=== PATIENT | female | born 2005 | race Caucasian/White ===

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

== ENCOUNTER 2024-01-16 13:45 | Outpatient (RCR) | payer BC, SELFPAY | END 2024-05-15 23:59 | disposition home or self-care (01) | PROVIDERS: PCP Family Medicine; Visit Provider Family Medicine | DX: R51.9 Headache, unspecified (principal); M62.838 Other muscle spasm; Z51.89 Encounter for other specified aftercare | CPT/HCPCS: 97110; 97140; 97162; 97530 ==

== ENCOUNTER 2024-02-19 13:47 | Outpatient (CLI) | payer BC, SELFPAY ==
--- NOTE | 2024-02-19 14:00 | US_ITS ---
Patient: KRZYSZTOF PURCELL Facility:?[facility] Patient ID:?[id number] Site Patient ID:?[id number]. Site :?[id number] Study:?US-Pelvis TRANSVAGINAL-02/19/2024 2:35:50 PM Ordering Physician:?STELLA CHOUDHARY Final Report: INDICATION: Displacement of IUD. TECHNIQUE: Ultrasound pelvis transvaginal COMPARISON: None. FINDINGS: Uterus: 6.4 x 2.8 x 3.9 cm. Normal echotexture of the myometrium. No masses. Endometrium: Endometrial thickness measures 11 mm. Intrauterine device is not visualized within the uterus. Right ovary 3.5 x 2.6 x 2.7 cm. Left ovary 4.2 x 2.0 x 3.1 cm. No ovarian or adnexal masses. Both ovaries are mildly enlarged with and contain multiple subcentimeter follicles. Cul-de-sac: No significant free fluid. IMPRESSION: 1. Intrauterine device is not seen within the uterus. 2. Mildly enlarged bilateral ovaries with multiple small follicles, which can be seen in the setting of polycystic ovarian syndrome. Clinical correlation is requested. Dictated by Sue Garcia MD @ 02/19/2024 2:48:17 PM Signed by:?Sue Garcia MD @02/19/2024 2:48:17 PM (Electronic Signature)
== END 2024-02-19 13:48 | disposition home or self-care (01) ==
LOC: US 13:47
PROVIDERS: PCP Family Medicine; Visit Provider Registered Nurse
DX: Z30.431 Encounter for routine checking of intrauterine contraceptive device (principal); N88.8 Other specified noninflammatory disorders of cervix uteri
CPT/HCPCS: 76830

== ENCOUNTER 2024-04-08 14:15 | Outpatient (CLI) | payer BC, SELFPAY ==
--- OUTSIDE RECORDS SUMMARY | 2024-04-08 14:20 | XMS_ITS | Clinical Summary ---
Author Organization [facility] Address [place], [place] [address] Care Team Providers Care Delivery Person Name Role Phone Alfred Pritchett MD Primary Care Provider [phone] Allergies Active Allergy Reactions Criticality Noted Date Comments Adhesive Rash Low 10/15/2023 rash from bandaid Escitalopram Oxalate Headache 07/11/2022 numbness Medications Medication Sig Dispensed Refills Start Date End Date Status dextroamphetamine-a mphetamine (ADDERALL XR) 10 mg Extended-Release capsuleIndications: Attention deficit disorder (ADD) without hyperactivity TAKE TWO CAPSULES (20MG) BY MOUTH ONCE DAILY. 60 Capsule 11/13/2023 Active acetaminophen (Tylenol Extra Strength) 500 mg tablet Take 1,000 mg by mouth every 6 hours if needed for Pain or Headache. Max acetaminophen dose: 4000mg in 24 hrs. Active meloxicam 15 mg tabletIndications:C oncussion without loss of consciousness, subsequent encounter Take 1 Tablet (15 mg) by mouth once daily. Take as needed for headache. This is Workers Compensation. 30 Tablet 1 11/27/2023 Active hydrOXYzine HCL (ATARAX) 25 mg tabletIndications:G AD (generalized anxiety disorder) Take 25 mg (1 tablet) by mouth daily 90 Tablet 12/04/2023 Active buPROPion (WELLBUTRIN XL) 150 mg Extended-Release tabletIndications:A ttention deficit disorder (ADD) without hyperactivity Take 1 Tablet (150 mg) by mouth every morning. 90 Tablet 1 12/04/2023 Active FLUoxetine (PROZAC) 40 mg capsuleIndications: ELYSSA (generalized anxiety disorder) Take 1 Capsule (40 mg) by mouth every morning. 90 Capsule 1 12/04/2023 Active dextroamphetamine CONTROLLED RELEASE (DEXEDRINE SPANSULE) 10 mg capsuleIndications: Attention deficit disorder (ADD) without hyperactivity Take 2 Capsules (20 mg) by mouth once daily. 60 Capsule 02/02/2024 Active hydrocortisone valerate (WESTCORT) 0.2 % cream Apply topically to affected area(s) two times daily. APPLY TOPICALLY TO THE AREA 2-3 TIMES A DAY UNTIL RESOLVED - NEEDED FOR ALLERGIC REACTION. DO NOT USE LONGER THAN 2 WEEKS* 07/19/2023 Active benzonatate (Tessalon Perles) 100 mg capsuleIndications: Viral URI Take 1 Capsule (100 mg) by mouth 3 times daily if needed for Cough. 30 Capsule 01/10/2024 Active SUMAtriptan (IMITREX) 25 mg tabletIndications:M igraine without aura and with status migrainosus, not intractable Take 25 mg at the onset of your migraine, repeat in 2 hours times 1 if headache is not resolved. Give at minimum 2hrs apart. Max Dose: 200mg per 24hrs. 10 Tablet 3 02/12/2024 Active Active Problems Problem Noted Date Diagnosed Date ELYSSA (generalized anxiety disorder) 07/12/2023 Controlled substance agreement signed 02/06/2023 Overview: 02/06/23, Kim Patel NP, Psychiatry Attention deficit disorder without mention of hy peractivity 02/25/2012 Adjustment disorder with mix ed disturbance of emotions and conduct 02/22/2012 Overview: Rule out ADHD Overweight(278.02) 12/19/2011 Resolved Problems Problem Noted Date Diagnosed Date Resolved Date Anxiety 12/05/2023 12/05/2023 Anxiety with depression 01/02/202111/18 Encounters Date Type Department Care Team Description 03/19/2024 2:52 PM CDT - 03/19/2024 4:[address] [facility] [address] [place] [address] Alexis Tabares MD Sprain of right foot, initial encounter (Primary Dx) Discharge Disposition: Home Self Care 03/19/2024 Travel 03/10/2024 Travel 02/27/2024 10:30 AM CDT Office Visit [facility] [address] [place] [address] Gabriela Painter PA Pharyngitis (ST since last Saturday-getting worse-does not want to eat or drink as it feels like she is trying to swallow needles) 02/27/2024 Travel 02/19/2024 Orders Only [facility] Scanner 1 scan: (1-Ord) [facility], XR ABDOMEN MIN 2V, 02/19/2024 02/19/2024 Orders Only [facility] Scanner 1 scan: (1-Ord) [place], PELVIS TRANSVAGINAL, 02/19/2024 02/17/2024 1:40 PM CDT Office Visit [address] [address] Alexis Mcmullen MD Allergies (/Allergy testing, I have a lot of foods that if I eat I get really sick or my/tounge feels fuzzy.//) 02/16/2024 Travel 02/12/2024 2:25 PM CDT Office Visit [address] [address] Alfred Pritchett MD Migraine (Nausea, abdomen pain, Sob and dizziness x 2 month /Had a Concussion in 12/11); Constipation (Maybe having 1 BM if she is mariella in a week ) 02/12/2024 Travel 02/07/[address] [address] Alfred Pritchett MD Form 02/04/[address] [address] Kim Patel NP Late Cancel Appointment 01/14/2024 1:50 PM TECHNICAL WRITER Office Visit [address] [address] Arielle Cool MD UTI (lower back pain now and constantly feels like she has to pee. feels like when she is urinating she feels a pinch like feeling down there. lower right abdomin pain) 01/14/2024 Telephone [place] [address] [facility] [place] [address] Arielle Cool MD Medication Management 01/14/2024 Travel 01/10/2024 1:40 PM TECHNICAL WRITER Office Visit [facility] [address] [place] [address] Alisha Orantes PA Cough (Patient started feeling sick last week. Thought it was a cold that would go away and it hasn't./Hurts to swallow. Still having nausea, vomiting, headaches, chills, either too hot or freezing, nose is constantly alternating between congestion and runny./Temperature this morning 99.8./Has been using OTC cold and flu with little relief. Complains of horrible cough.) 01/10/2024 Travel from Last 3 Months Immunizations Name Administration Dates Next Due AMB Influenza, IIV3 (Age >=3 years)(Flu Clinic Only) 09/06/2011,09/20/2008 AMB Influenza, IIV4 PF (=>6 mos Flulaval,Fluzone Fluarix)(Flu Clinic Only) 09/06/2016,08/13/2014 COVID-19 vaccine (Cookstr NTech 30mcg/0.3mL) 12YO+ BIVALENT PF, MDV 09/19/2022 DTaP 03/19/2006 [id number] (Pediarix) 06/15/2005,04/13/2005,0 02/13/2005 DTaP-IPV (Kinrix) 12/20/2009 HIB PRP-OMP (PedvaxHIB) 03/19/2006,04/13/2005, HPV 9 (Gardasil 9) 06/27/2017,12/07/2016 Hepatitis A (Peds) 08/11/2018,02/03/2018 Influenza A (H1N1), Inactiva shwetha (Age >=3 Years) 02/01/2010,12/20/2009 Influenza, IIV3 (Age 6-35 mos) 09/06/2011,2004,09/11/2005 Influenza, IIV3 (Age >=3 years) 12/09/2013,08/22,08/08/2009 Influenza, IIV4 08/22/2022, 0,10/28/2019,02/09,02/03/2018,08/31/2015 MMR 12/20/2009,12/11/2005 Meningococcal Vaccine (Menveo) 01/02/2021,2016,12/07/2016 Pneumococcal conj 7-Valent (Prevnar 7) 0 03/19/2006,06/15/2005,04/13/2005,02/13 Tdap 06/27/2017,12/07/2016 Varicella Vaccine 12/20/2009,12/11/2005 Family History Medical History Relation Name Comments Good Health Father Good Health Mother Relation Name Status Comments Father Mother Social History Tobacco Use Types Packs/Day Years Used Date Smoking Tobacco: Never Passive Smoke Exposure: Yes Smokeless Tobacco: Never Tobacco Cessation:Counseling Given: Yes Comments:grandma smokes outdoors Alcohol Use Standard Drinks/Week Comments No 0 (1 standard drink = 0.6 oz pur e alcohol) PHQ-2 Answer Date Recorded PHQ-2 TOTAL SCORE 1 02/12/2024 Social Connections Answer Date Recorded Frequency of Communication with Friends and Fami ly 0 01/01/2024 Financial Resource Strain Answer Date R ecorded Difficulty of Paying Living Expenses 3 12/24/2022 Difficulty of Paying Living Expenses Not on file 12/24/2022 Food Insecurity Answer Date Recorded Worried About Running Out of Food in the Last Ye ar 1 12/24/2022 Transportation Needs Answer Date Record ed Lack of Transportation (Medical) 1 12/24/2022 Housing Stability Answer Date Recorded Unable to Pay for Housing in the Last Year 1 12/24/2022 Sex and Gender Information Value Date Recorded Sex Assigned at Female 12/02/2021 8:02 PM TECHNICAL WRITER Gender Identity Female 12/02/2021 8:02 PM TECHNICAL WRITER Sexual Orientation Lesbian or Seaman 12/02/2021 8: 02 PM TECHNICAL WRITER Obstetrics History Para Term AB IAB SAB Ectopic Multiple Livin g Live Births 0 0 0 0 0 0 0 0 0 0 0 Last Filed Vital Signs Vital Sign Reading Time Taken Comments Blood Pressure 128/80 03/19/2024 2:57 PM CDT Pulse 100 03/19/2024 2:57 PM CDT Temperature 36.8 ??C (98.2 ??F) 03/19/2024 2:57 PM CD T Respiratory Rate 18 03/19/2024 2:57 PM CDT Oxygen Saturation 97% 03/19/2024 2:57 PM CDT Inhaled Oxygen Concentration - - Weight 96.6 kg (213 lb) 03/19/2024 2:57 PM CDT Height 154.9 cm (5' 1) 03/19/2024 2:57 PM CDT Body Mass Index 40.25 03/19/2024 2:57 PM CDT Plan of Treatment Health Maintenance Due Date Last Done Comments Well Child Check for age 3-20 07/11/2023 07/11/2022, 10/28/2020, 02/09/2019, Additional history exists COVID-19 vaccine series ( season) 2023 09/19/2022, 07/07/2021, 06/16/2021 Influenza for age 9-49 07/19/2024 , 10/28/2020, 10/28/2019, Additional history exists Depression screening for age 12+ 02/11/2025 02/12/2024, 12/04/2023, 07/12/2023, Additional history exists BMI (ht and wt on same day) for age 18+ 02/16/2025 02/17/2024, 02/12/2024, 01/14/2024, Additional history exists Tetanus booster 06/27/2027 06/27/2017, 12/07/2016 Pneumococcal series for age 6-64 Aged Out 03/19/2006, 06/15/2005, 04/13/2005, Additional history exists No longer eligible based on patient's age to complete this topic HPV series for age 9-26 Completed 06/27/2017, 12/07 Tdap Completed 06/27/2017, 12/07/2016 Meningococcal series for age 11-21 Completed 01/02/2021, 06/27/2017, 12/07/2016 HIV for age 15-65 Completed 02/22/2023 Hepatitis C screening for age 18-79 Completed 02/22/2023 Procedures Procedure Name Priority Date/Time Associated Diagnosis Comments XR FOOT 3 VIEWS RIGHT STAT 03/19/2024 3:21 PM CDT THROAT RAPID STREP ONLY CLINIC Routine 02/27/2024 10:24 AM CDT Sore throat SCAN-RADIOLOGY REPORT 02/19/2024 12:00 AM CDT SCAN-ULTRASOUND REPORT 12:00 AM CDT URINALYSIS MICROSCOPIC Routine 4:18 PM CDT Dysuria UA W/ SEDIMENT EXAM REFLEXED PER CRITERIA Routine 02/12/2024 4:18 PM CDT Dysuria TISSUE TRANSGLUTAMINASE IGA Routine 02/12/2024 4:03 PM CDT Migraine without aura and with status migrainosus, not intractable CBC WITH AUTO DIFFERENTIAL Routine 02/12/2024 4:03 PM CDT Other fatigue CBC WITH AUTO DIFFERENTIAL Routine 02/12/2024 4:03 PM CDT Other fatigue HEMOGLOBIN A1C SCREENING Routine 02/12/2024 4:03 PM CDT Polydipsia TSH WITH REFLEX Routine 02/12/2024 4:03 PM CDT Other fatigue COMP METABOLIC PANEL Routine 02/12/2024 4:03 PM CDT Polydipsia CELIAC CASCADE PANEL Routine 02/12/2024 4:03 PM CDT Migraine without aura and with status migrainosus, not intractable SEDIMENTATION RATE Routine 02/12/2024 4:03 PM CDT Other headache syndrome URINALYSIS MICROSCOPIC Routine 2:00 PM TECHNICAL WRITER UTI (urinary tract infection), uncomplicated URINE CULTURE Routine 01/14/2024 2:00 PM TECHNICAL WRITER UTI (urinary tract infection), uncomplicated UA W/ SEDIMENT EXAM REFLEXED PER CRITERIA Routine 01/14/2024 2:00 PM TECHNICAL WRITER UTI (urinary tract infection), uncomplicated STREP A PCR STAT 01/10/2024 1:45 PM TECHNICAL WRITER Sore throat THROAT RAPID STREP A WITH REFLEX Patient wait 01/10/2024 1:45 PM TECHNICAL WRITER Sore throat COVID/FLU/RSV PANEL Routine 01/10/2024 1:40 PM TECHNICAL WRITER Sore throat LC HIV-1/O/2, 4TH GENERATION Routine 02/22/2023 3:37 PM CDT Screening for HIV (human immunodeficiency virus) LC HCV ANTIBODY RFX TO QUANT PCR Routine 02/22/2023 3:37 PM CDT Need for hepatitis C screening test from Last 3 Months or Most Recently Relevant to Health Maintenance Results * XR FOOT 3 VIEWS RIGHT (03/19/2024 3:21 PM CDT) Anatomical Region Laterality Modality FEET, FOOT R Digital Radiogra phy 03/19/2024 3:23 PM CDT Narrative 03/19/2024 3:23 PM CDT For Patients: ??As a result of the Cures Act, medical imaging exams and procedure reports are released immediately into your electronic medical record. ??You may view this report before your referring provider. ??If you have questions, please contact your health care provider. Indication: Trauma. Technique: Right foot, 3 views. Comparison: None. Findings/Impression: Bones: Alignment is normal. No displaced fractures or bone lesions. ?? Joint spaces: Unremarkable. Soft tissues: Unremarkable. Dictated by Medhat Wellington MD @ 03/19/2024 3:23:40 PM (Electronically Signed) Procedure Note Medhat Wellington MD - 03/19/2024 For Patients: As a result of the Cures Act, medical imagingexams and procedure reports are released immediately into your electronicmedical record. You may view this report before your referring provider.If you have questions, please contact your health care provider. Indication: Trauma. Technique: Right foot, 3 views. Comparison: None. Findings/Impression: Bones: Alignment is normal. No displaced fractures or bone lesions. Joint spaces: Unremarkable. Soft tissues: Unremarkable. Dictated by Medhat Wellington MD @ 03/19/2024 3:23:40 PM (Electronically Signed) Alexis Tabares MD GENERAL IMAGING * THROAT RAPID STREP ONLY CLINIC (02/27/2024 10:24 AM CDT) THROAT RAPID STREP A ANTIGEN Negative 02/27/2024 10:35 AM CDT [facility] Throat SPECIMEN FROM THROAT / Unknown Non-Blood / Unknown 02/27/2024 10:24 AM CDT 02/27/2024 10:27 AM CDT Gabriela MORENO MICROBIOLOGY Performing Organization Address City/State/[facility] Co de Phone Number [facility] [address] [place] [address], * SCAN-RADIOLOGY REPORT (02/19/2024 12:00 AM CDT) Anatomical Region Laterality Modality Other Scanner OTHER * SCAN-ULTRASOUND REPORT (02/19/2024 12:00 AM CDT) Anatomical Region Laterality Modality Other Scanner OTHER * (ABNORMAL) URINALYSIS MICROSCOPIC (02/12/2024 4:18 PM CDT) Only the most recent of2 resultswithin the time period is included. RBC 0-2 0-2, None Seen /HPF 02/12/2024 4:29 PM CDT [facility] WBC 3-5 0-2, 3-5, None Seen /HPF 02/12/2024 4:29 PM CDT [facility] BACTERIA Moderate(A ) None Seen, Rare, Few Bacteria/ HPF 02/12/2024 4:29 PM CDT [facility] EPITHELIAL CELLS Few None Seen, Few Epi/HPF 02/12/2024 4:29 PM CDT [facility] Urine URINE SPECIMEN / Unknown Non-Blood / Unknown 02/12/2024 4:18 PM CDT 02/12/2024 4:18 PM CDT Alfred Pritchett MD URINE [facility] [address] [place] [address], * (ABNORMAL) UA W/ SEDIMENT EXAM REFLEXED PER CRITERIA (02/12/2024 4:18 PM CDT) Only the most recent of2 resultswithin the time period is included. COLOR Yellow Yellow Color 02/12/2024 4:28 PM CDT [facility] CLARITY Clear Clear Clarity 02/12/2024 4:28 PM CDT [facility] SPECIFIC GRAVITY,URINE >=1.030(A) 1.010, 1.015, 1.020, 1.025 02/12/2024 4:28 PM CDT [facility] PH,URINE 5.5 6.0, 7.0, 8.0, 5.5, 6.5, 7.5, 8.5 02/12/2024 4:28 PM CDT [facility] UROBILINOGEN, QUALITATIVE Normal Normal EU/dl 02/12/2024 4:28 PM CDT [facility] PROTEIN, URINE Negative Negative mg/dL 02/12/2024 4:28 PM CDT [facility] GLUCOSE, URINE Negative Negative mg/dL 02/12/2024 4:28 PM CDT [facility] KETONES,URINE Negative Negative mg/dL 02/12/2024 4:28 PM CDT [facility] BILIRUBIN,URI NE Negative Negative 02/12/2024 4:28 PM CDT [facility] OCCULT BLOOD,URINE Negative Negative 02/12/2024 4:28 PM CDT [facility] NITRITE Negative Negative 02/12/2024 4:28 PM CDT [facility] LEUKOCYTE ESTERASE Trace(A) Negative 02/12/2024 4:28 PM CDT [facility] Urine URINE SPECIMEN / Unknown Non-Blood / Unknown 02/12/2024 4:18 PM CDT 02/12/2024 4:18 PM CDT Alfred Pritchett MD URINE Performing Organization Address City/[facility]/ZIP Co de Phone Number [facility] [address] [place] [address], * SEDIMENTATION RATE (02/12/2024 4:03 PM CDT) SEDIMENTATION RATE 6 <20 mm/hr 2023 2:35 PM CDT [facility] Blood BLOOD SPECIMEN / Unknown Venipuncture / Unknown 02/12/2024 4:03 PM CDT 02/12/2024 4:06 PM CDT Alfred Pritchett MD HEMATOLOGY Performing Organization Address City/[facility]/ZIP Co de Phone Number [facility] [address] [place] [id number], [place] * CELIAC CASCADE PANEL (02/12/2024 4:03 PM CDT) IGA 203.62 61.00 - 348.00 mg/dL 02/14/2024 7:47 AM CDT [facility] Blood BLOOD SPECIMEN / Unknown Venipuncture / Unknown 02/12/2024 4:03 PM CDT 02/12/2024 4:06 PM CDT Narrative [facility] - 02/14/2024 7:47 AM CDT Reflexed to Tissue Transglutaminase IgA Alfred Pritchett MD SEND OUTS Performing Organization Address City/[facility]/ZIP Co de Phone Number [facility] [address] [place] [address], [place] * (ABNORMAL) CBC WITH AUTO DIFFERENTIAL (02/12/2024 4:03 PM CDT) [facility] WHITE BLOOD COUNT 6.9 4.5 - 11.0 thou/cu mm 02/12/2024 4:09 PM CDT [facility] RED BLOOD COUNT 5.24(H) 4.00 - 5.20 mil/cu mm 02/12/2024 4:09 PM CDT [facility] HEMOGLOBIN 14.7 12.0 - 16.0 g/dL 02/12/2024 4:09 PM CDT [facility] HEMATOCRIT 44.1 33.0 - 51.0 % 02/12/2024 4:09 PM CDT [facility] MCV 84 80 - 100 fL 02/12/2024 4:09 PM CDT [facility] MCH 28.1 26.0 - 34.0 pg 02/12/2024 4:09 PM CDT [facility] MCHC 33.3 32.0 - 36.0 g/dL 02/12/2024 4:09 PM CDT [facility] RDW 13.9 11.5 - 15.5 % 02/12/2024 4:09 PM CDT [facility] PLATELET COUNT 335 140 - 440 thou/cu mm 02/12/2024 4:09 PM CDT [facility] MPV 10.0 6.5 - 11.0 fL 02/12/2024 4:09 PM CDT [facility] % NEUT 54.8 % 02/12/2024 4:09 PM CDT [facility] % LYMPH 36.9 % 02/12/2024 4:09 PM CDT [facility] % MONO 6.3 % 02/12/2024 4:09 PM CDT [facility] % EOS 1.9 % 02/12/2024 4:09 PM CDT [facility] % BASO 0.1 % 02/12/2024 4:09 PM CDT [facility] ABSOLUTE NEUTROPHILS 3.8 1.7 - 7.0 thou/cu mm 02/12/2024 4:09 PM CDT [facility] ABSOLUTE LYMPHOCYTES 2.5 0.9 - 2.9 thou/cu mm 02/12/2024 4:09 PM CDT [facility] ABSOLUTE MONOCYTES 0.4 <0.9 thou/cu mm 02/12/2024 4:09 PM CDT [facility] ABSOLUTE EOSINOPHILS 0.1 <0.5 thou/cu mm 02/12/2024 4:09 PM CDT [facility] ABSOLUTE BASOPHILS 0.0 <0.3 thou/cu mm 02/12/2024 4:09 PM CDT [facility] Blood BLOOD SPECIMEN / Unknown Venipuncture / Unknown 02/12/2024 4:03 PM CDT 02/12/2024 4:06 PM CDT Alfred Pritchett MD HEMATOLOGY Performing Organization Address City/[facility]/ZIP Co de Phone Number [facility] [address] [place] [address], [place] [phone] * HEMOGLOBIN A1C SCREENING (02/12/2024 4:03 PM CDT) HEMOGLOBIN A1C SCREENING 5.5 <=6.4 % 02/14/2024 11:47 AM CDT [facility] Blood BLOOD SPECIMEN / Unknown Venipuncture / Unknown 02/12/2024 4:03 PM CDT 02/12/2024 4:06 PM CDT Narrative [facility] - 02/14/2024 11:47 AM CDT ? (<5.7%) ?Normal ? (5.7% to 6.4%) ? Indicates prediabetes ? (>=6.5%) ? Confirms diabetes Falsely low levels may be seen with: Recent Transfusion, Recent Significant Blood Loss, Hemolytic Diseases, or Falsely elevated levels may be seen with: Untreated Anemias, Splenectomy Alfred Pritchett MD CHEMISTRY [facility] [address] [place] [id number], [place] * TSH WITH REFLEX (02/12/2024 4:03 PM CDT) TSH 3.25 0.27 - 4.20 uIU/mL 02/13/2024 2:54 PM CDT [facility] Blood BLOOD SPECIMEN / Unknown Venipuncture / Unknown 02/12/2024 4:03 PM CDT 02/12/2024 4:06 PM CDT Narrative [facility] - 02/13/2024 2:54 PM CDT In Adults, TSH values between 5.00 and 10.00 uIU/ml do not necessarily indicate the presence of Hypothyroidism. Correlation with clinical findings such as presence of goiter and/or Thyroperoxidase (TPO) Antibody may be helpful. For more information please refer to DEMAR 2004; 291: [phone]. Alfred Pritchett MD CHEMISTRY [facility] [address] [place] [address], * TISSUE TRANSGLUTAMINASE IGA (02/12/2024 4:03 PM CDT) TISSUE TRANSGLUTAMINASE IGA <1.2 <4.0 U/ml 02/14/2024 12:14 PM CDT [facility] Comment:Celiac disease unlik amy unless IgA deficient. Recommend IgA levels if not already performed. Blood BLOOD SPECIMEN / Unknown Venipuncture / Unknown 02/12/2024 4:03 PM CDT 02/12/2024 4:06 PM CDT Narrative [facility] - 02/14/2024 12:14 PM CDT Negative ?<4.0 Weak Positive ?? 4-10 Positive ?>10.0 This test should not be solely relied upon to establish a diagnosis of celiac disease. Affected individuals who have been on a gluten-free diet prior to testing may have a negative result. These results were obtained using the [employer] Novalyse R h-tTG IgA KATHY assay. ??Values obtained from other manufacturers' assay methods may not be used interchangeably. Alfred Pritchett MD SEND OUTS [facility] [address] [place] [address], * (ABNORMAL) COMP METABOLIC PANEL (02/12/2024 4:03 PM CDT) SODIUM 138 136 - 145 mmol/L 02/13/2024 2:54 PM CDT [facility] POTASSIUM 4.6 3.5 - 5.1 mmol/L 02/13/2024 2:54 PM CDT [facility] CHLORIDE 102 98 - 107 mmol/L 02/13/2024 2:54 PM CDT [facility] CO2,TOTAL 25 22 - 29 mmol/L 02/13/2024 2:54 PM CDT [facility] ANION GAP 11 5 - 18 02/13/2024 2:54 PM CDT [facility] GLUCOSE 85 70 - 99 mg/dL 02/13/2024 2:54 PM CDT [facility] CALCIUM 9.8 8.6 - 10.0 mg/dL 02/13/2024 2:54 PM CDT [facility] BUN 11 6 - 20 mg/dL 02/13/2024 2:54 PM CDT [facility] CREATININE 0.90 0.50 - 0.90 mg/dL 02/13/2024 2:54 PM CDT [facility] BUN/CREAT RATIO 12 10 - 20 2:54 PM CDT [facility] eGFR >90 >90 mL/min/1.7 3m2 02/13/2024 2:54 PM CDT [facility] Comment:As of 2022, eG FR is calculated by the CKD-EPI creatinine equation without race adjustment. ??eGFR can be influenced by muscle mass, exercise, and diet. ??The reported eGFR is an estimation only and is only applicable if the renal function is stable. ALBUMIN 4.7 4.0 - 4.9 g/dL 02/13/2024 2:54 PM CDT [facility] PROTEIN,TOTAL 7.7 6.0 - 8.0 g/dL 02/13/2024 2:54 PM CDT [facility] BILIRUBIN,TOTAL 0.4 0.0 - 1.2 mg/dL 02/13/2024 2:54 PM CDT [facility] ALK PHOSPHATASE 188(H) 35 - 104 IU/L 02/13/2024 2:54 PM CDT [facility] ALT (SGPT) 26 10 - 35 IU/L 02/13/2024 2:54 PM CDT [facility] AST (SGOT) 26 10 - 35 IU/L 02/13/2024 2:54 PM CDT [facility] Blood BLOOD SPECIMEN / Unknown Venipuncture / Unknown 02/12/2024 4:03 PM CDT 02/12/2024 4:06 PM CDT Alfred Pritchett MD CHEMISTRY Performing Organization Address City/[facility]/ZIP Co de Phone Number [facility] [address] [place] [address], * URINE CULTURE (01/14/2024 2:00 PM TECHNICAL WRITER) CULTURE <10,000 CFU/mL multiple organisms 01/16/2024 8:08 AM TECHNICAL WRITER [facility] Urine URINE SPECIMEN / Unknown Non-Blood / Unknown 01/14/2024 2:00 PM TECHNICAL WRITER 01/14/2024 2:01 PM TECHNICAL WRITER Arielle Cool MD MICROBIOLOG Y [facility] [address] [place] [address], * STREP A PCR (01/10/2024 1:45 PM TECHNICAL WRITER) GROUP A STREP Negative 01/11/2024 1:01 AM TECHNICAL WRITER [facility] Throat SPECIMEN FROM THROAT / Unknown Non-Blood / Unknown 01/10/2024 1:45 PM TECHNICAL WRITER 01/10/2024 1:57 PM TECHNICAL WRITER Alisha MORENO MICROBIOLOGY [facility] [address] [place] [address], [place] * THROAT RAPID STREP A WITH REFLEX (01/10/2024 1:45 PM TECHNICAL WRITER) STREP A ANTIGEN Negative 01/10/2024 1:57 PM TECHNICAL WRITER [facility] Comment:PCR to follow. Throat SPECIMEN FROM THROAT / Unknown Non-Blood / Unknown 01/10/2024 1:45 PM TECHNICAL WRITER 01/10/2024 1:47 PM TECHNICAL WRITER Alisha MORENO MICROBIOLOGY Performing Organization Address City/[facility]/ZIP Co de Phone Number [facility] [address] [place] [address], [place] [phone] * (ABNORMAL) COVID/FLU/RSV PANEL (01/10/2024 1:40 PM TECHNICAL WRITER) COVID 19 [facility] Negative Negative 01/10/2024 11:41 PM TECHNICAL WRITER [facility] Comment:All PCR tests are moore bject to false negative result due to variability in viral load and collection technique. A negative result does not rule out a SARS-CoV-2 infection. Clinical correlation required. INFLUENZA A PCR Negative 11:41 PM TECHNICAL WRITER [facility] INFLUENZA B PCR Positive(A) 01/10/20 11:41 PM TECHNICAL WRITER [facility] Respiratory Syncytial Virus Negative 01/10/2024 11:41 PM TECHNICAL WRITER [facility] Nasopharyngeal SPECIMEN FROM NASOPHARYNGEAL STRUCTURE / Unknown Non-Blood / Unknown 01/10/2024 1:40 PM TECHNICAL WRITER 01/10/2024 2:12 PM TECHNICAL WRITER Narrative [facility] - 01/10/2024 11:41 PM TECHNICAL WRITER This test has been authorized by FDA under an Emergency Use Authorization (EUA). This test is only authorized for the duration of time the declaration that circumstances exist justifying the authorization of the emergency use of in vitro diagnostic tests for detection of SARS-CoV-2 virus and/or diagnosis of COVID-19 infection under section 564(b)(1) of the Act, 21 U.S.C. 360bbb-3(b) (1), unless the authorization is terminated or revoked sooner. Alisha MORENO MICROBIOLOGY Performing Organization Address City/[facility]/ZIP Co de Phone Number [facility] [address] [place] [address], * LC HCV ANTIBODY RFX TO QUANT PCR (02/22/2023 3:37 PM CDT) HCV Ab Non Reactive Non Reactive 02/26/2023 10:06 PM CDT [facility] (CET) Blood BLOOD SPECIMEN / Unknown Venipuncture / Unknown 02/22/2023 3:37 PM CDT 02/22/2023 3:39 PM CDT Narrative [facility] (CET) - 02/26/2023 10:06 PM CDT Performed at: ??01 - [address] ??[id number] Consumer Affairs Specialist: Kwabena France MD, Phone: ??[phone] Alfred Pritchett MD LABORATORY Performing Organization Address City/[facility]/ZIP Co de Phone Number [facility] (CET) [address] [place] [address], * HIV-1/O/2, 4TH GENERATION (02/22/2023 3:37 PM CDT) HIV Scr 4th Gen Non Reactive Non Reactive 02/26/2023 4:07 AM CDT [facility] ([facility]ET) Comment: HIV Negative HIV-1/HIV-2 antibodies and HIV-1 p24 antigen were NOT detected. There is no laboratory evidence of HIV infection. Blood BLOOD SPECIMEN / Unknown Venipuncture / Unknown 02/22/2023 3:37 PM CDT 02/22/2023 3:39 PM CDT Narrative [facility] ([facility]) - 02/26/2023 4:07 AM CDT Performed at: ??[address] - [address] ??[id number] Consumer Affairs Specialist: Kwabena France MD, Phone: ??[phone] Alfred Pritchett MD LABORATORY [facility] (CET) [address] [place] [address] from Last 3 Months or Most Recently Relevant to Health Maintenance Care Teams Delivery Person Relationship Specialty Start Date End Date Alfred Pritchett [place] [address] PCP - General 04/19/06
--- NOTE | 2024-04-08 14:30 | CRLHL7_ITS ---
For Patients: As a result of the Century Cures Act, medical imaging exams and procedure reports are released immediately into your electronic medical record. You may view this report before your referring provider. If you have questions, please contact your health care provider. INDICATION: Migraines, headaches and dizziness. TECHNIQUE: Brain MRI with and without contrast. MRA head and neck with and without contrast. 20 cc gadolinium based contrast administered. COMPARISON: None. FINDINGS: MRI Head: No acute infarction. No acute or chronic intracranial blood products. No mass or pathologic intracranial enhancement. No intracranial signal abnormality. No hydrocephalus or extra-axial collections. The pituitary gland, parasellar structures and optic chiasm are normal. The membranous labyrinth`s of the inner ears are normal. The 7th/8th cranial nerve complexes are normal. No mass or abnormal enhancement within the internal auditory canals or cerebellopontine angle cisterns. The orbital contents are normal. No calvarial or skull base marrow signal abnormality. Right maxillary sinus atelectasis and mucosal thickening. No extracranial soft tissue findings. MRA Head: No proximal large vessel occlusion. The anterior cerebral arteries are patent. The middle cerebral arteries are patent. The posterior cerebral arteries are patent. The intradural vertebral arteries and basilar artery are patent. The intracranial internal carotid arteries are patent. No aneurysm or high flow vascular malformation. MRA Neck: There is a 3 vessel configuration of the aortic arch. The brachiocephalic artery is patent. The proximal subclavian arteries are patent. The common carotid arteries are patent. The internal carotid arteries are patent. The cervical vertebral arteries are patent. No abnormal dilatation of the major cervical arteries. IMPRESSION: MRI Head: 1. No acute infarction or other acute intracranial pathology. 2. No mass or pathologic intracranial enhancement. 3. No posterior fossa abnormalities. MRA Head: 1. No proximal large vessel occlusion or flow-limiting stenosis involving the major intracranial arteries. MRA Neck: 1. No flow-limiting stenosis involving the major cervical arteries. No evidence of cervical arterial dissection. Dictated by Sharath Jean-Baptiste MD @ 04/08/2024 4:18:31 PM (Electronically Signed)
--- NOTE | 2024-04-08 14:30 | CRLHL7_ITS ---
For Patients: As a result of the Cures Act, medical imaging exams and procedure reports are released immediately into your electronic medical record. You may view this report before your referring provider. If you have questions, please contact your health care provider. Dictation for this exam included within the brain MRI report from the same date. Dictated by Sharath Jean-Baptiste MD @ 04/08/2024 4:20:38 PM (Electronically Signed)
--- NOTE | 2024-04-08 14:45 | CRLHL7_ITS ---
For Patients: As a result of the Cures Act, medical imaging exams and procedure reports are released immediately into your electronic medical record. You may view this report before your referring provider. If you have questions, please contact your health care provider. Dictation for this exam included within the brain MRI report from the same date. Dictated by Sharath Jean-Baptiste MD @ 04/08/2024 4:19:37 PM (Electronically Signed)
== END 2024-04-08 14:16 | disposition home or self-care (01) ==
PROVIDERS: PCP Family Medicine; Visit Provider Psychiatry & Neurology Neurology
DX: G43.909 Migraine, unspecified, not intractable, without status migrainosus (principal); R42 Dizziness and giddiness
CPT/HCPCS: 70544; 70549; 70553; A9575

== ENCOUNTER 2025-04-09 21:11 | Emergency (ER) | payer BC, MEDICAID, SELFPAY ==
--- OUTSIDE RECORDS SUMMARY | 2025-04-09 21:13 | XMS_ITS | Clinical Summary ---
Author Organization [facility] Address [address] [place] [address] Care Team Providers Care Insurance Counsel Name Role Phone Alfred Pritchett MD Primary Care Provider [phone] Allergies Active Allergy Reactions Criticality Noted Date Comments Adhesive Rash Low 10/15/2023 rash from bandaid Escitalopram Oxalate Headache 07/11/2022 numbness Medications acetaminophen (Tylenol Extra Strength) 500 mg tablet Take 1,000 mg by mouth every 6 hours if needed for Pain or Headache. Max acetaminophen dose: 4000mg in 24 hrs. Active meloxicam 15 mg tabletIndication s:Concussion without loss of consciousness, subsequent encounter Take 1 Tablet (15 mg) by mouth once daily. Take as needed for headache. This is Workers Compensation. 30 Tablet 1 11/27/19 24 Active hydrocortisone valerate (WESTCORT) 0.2 % cream Apply topically to affected area(s) two times daily. APPLY TOPICALLY TO THE AREA 2-3 TIMES A DAY UNTIL RESOLVED - NEEDED FOR ALLERGIC REACTION. DO NOT USE LONGER THAN 2 WEEKS* 07/19/20 23 Active benzonatate (Tessalon Perles) 100 mg capsuleIndicatio ns:Viral URI Take 1 Capsule (100 mg) by mouth 3 times daily if needed for Cough. 30 Capsule 01/10/20 24 Active SUMAtriptan (IMITREX) 25 mg tabletIndication s:Migraine without aura and with status migrainosus, not intractable Take 25 mg at the onset of your migraine, repeat in 2 hours times 1 if headache is not resolved. Give at minimum 2hrs apart. Max Dose: 200mg per 24hrs. 10 Tablet 3 02/12/20 24 Active rizatriptan (MAXALT) 10 mg tablet Take 10 mg by mouth 2 times daily if needed for Migraine. One tablet at onset of a migraigne. Give at minimum 2hrs apart. Max Dose: 30mg per 24hrs. Active meclizine HCl (MECLIZINE ORAL) Take 25 mg by mouth. at the onset of a dizzy spell Active propranoloL (INDERAL) 20 mg tabletIndication s:Other migraine without status migrainosus, not intractable Take 1 Tablet (20 mg) by mouth two times daily. 60 Tablet 3 11/12/20 24 Active buPROPion 150 mg Extended-Release tabletIndication s:Depression, unspecified depression type,Attention deficit hyperactivity disorder (ADHD), predominantly inattentive type Take 1 Tablet (150 mg) by mouth once daily in the morning. 90 Tablet 03/15/20 25 Active hydrOXYzine HCL 25 mg tabletIndication s:ELYSSA (generalized anxiety disorder) TAKE ONE TABLET BY MOUTH ONCE EVERY DAY . 90 Tablet 03/15/20 25 Active FLUoxetine 40 mg capsuleIndicatio ns:ELYSSA (generalized anxiety disorder),Depres grupo, unspecified depression type Take 1 Capsule (40 mg) by mouth once daily in the morning. 90 Capsule 03/15/20 25 Active dextroamphetamin e CONTROLLED RELEASE (Dexedrine) 10 mg capsuleIndicatio ns:Attention deficit hyperactivity disorder (ADHD), predominantly inattentive type Take 2 Capsules (20 mg) by mouth once daily. 60 Capsule 04/14/20 25 025 Active dextroamphetamin e CONTROLLED RELEASE (Dexedrine) 10 mg capsuleIndicatio ns:Attention deficit hyperactivity disorder (ADHD), predominantly inattentive type Take 2 Capsules (20 mg) by mouth once daily. 60 Capsule 05/14/20 25 Active dextroamphetamin e CONTROLLED RELEASE (Dexedrine) 10 mg capsuleIndicatio ns:Attention deficit hyperactivity disorder (ADHD), predominantly inattentive type Take 2 Capsules (20 mg) by mouth once daily. 60 Capsule 03/16/20 25 Active codeine-guaiFENe sin 10-100 mg/5 mL liquidIndication s:Acute cough Take 5 mL by mouth at bedtime if needed for Cough. 100 mL 03/26/20 25 Active dextroamphetamin e-amphetamine (Adderall XR) 20 mg Extended-Release capsule Take 20 mg by mouth once daily in the morning. 025 Discontinu ed(*Patien t states no longer taking) buPROPion (WELLBUTRIN XL) 150 mg Extended-Release tabletIndication s:Attention deficit disorder (ADD) without hyperactivity Take 1 Tablet (150 mg) by mouth once daily in the morning. 90 Tablet 01/12/20 25 025 Discontinu ed(Reorder (E-cancel not sent)) FLUoxetine (PROZAC) 40 mg capsuleIndicatio ns:ELYSSA (generalized anxiety disorder) Take 1 Capsule (40 mg) by mouth once daily in the morning. 90 Capsule 01/12/20 25 025 Discontinu ed(Reorder (E-cancel not sent)) hydrOXYzine HCL (ATARAX) 25 mg tabletIndication s:ELYSSA (generalized anxiety disorder) TAKE ONE TABLET BY MOUTH ONCE EVERY DAY . 90 Tablet 01/12/20 25 025 Discontinu ed(Reorder (E-cancel not sent)) dextroamphetamin e CONTROLLED RELEASE (Dexedrine) 10 mg capsuleIndicatio ns:Attention deficit disorder (ADD) without hyperactivity Take 2 Capsules (20 mg) by mouth once daily. 60 Capsule 02/12/20 25 025 dextroamphetamin e CONTROLLED RELEASE (Dexedrine) 10 mg capsuleIndicatio ns:Attention deficit disorder (ADD) without hyperactivity Take 2 Capsules (20 mg) by mouth once daily. 60 Capsule 03/13/20 25 025 Discontinu ed(*Med complete/R egimen complete/L evel of care change) dextroamphetamin e CONTROLLED RELEASE (Dexedrine) 10 mg capsuleIndicatio ns:Attention deficit hyperactivity disorder (ADHD), predominantly inattentive type Take 2 Capsules (20 mg) by mouth once daily. 60 Capsule 03/15/20 25 025 Discontinu ed(*Medica tion adjustment ) Active Problems Problem Noted Date Diagnosed Date ELYSSA (generalized anxiety disorder) 07/12/2023 Controlled substance agreement signed 02/06/2023 Overview (02/06/2023): 02/06/23, Kim Patel NP, Psychiatry Attention deficit hyperactiv ity disorder (ADHD), predominantly inattentive type 02/25/2012 Depression 02/22/2012 Overview (02/22/2012): Rule out ADHD Overweight(278.02) 12/19/2011 Resolved Problems Problem Noted Date Diagnosed Date Resolved Date Anxiety 12/05/2023 12/05/2023 Anxiety with depression 01/02/202111/18 Encounters Date Type Department Care Team Description 04/09/[address] [address] Kim Patel NP Refill Request (dextroamphetamine CONTROLLED RELEASE (Dexedrine) 10 mg capsule ) 03/26/2025 9:15 AM CDT Office Visit [address] [address] Alfred Pritchett MD Abdominal Pain (Upper left abdominal pain); Results (Go over ultrasound results); Cough (2.5 weeks of coughing - tessalon didn't help/COVID-19 testing negative x3) 03/26/2025 Travel 03/17/[address] [address] Alfred Pritchett MD Results (Ultrasound results) 03/16/2025 3:15 PM CDT Ancillary Procedure [address] [address] 03/15/2025 3:15 PM CDT Office Visit [address] [address] Kim Patel NP Follow Up; Medication Management 03/15/[address] [address] Kim Patel NP Medication Management (dextroamphetamine ) 03/15/2025 Travel 03/05/2025 12:40 PM CDT Office Visit [address] [address] Alfred Pritchett MD Lump (Lump left side of rib area, under breast/Pain x 2 days) 03/05/2025 Travel 02/04/2025 Refill [facility] [address] [facility] [place] [address] Kim Patel, WEIGHT REDUCTION SPECIALIST Refill Request (Bupropion, Fluoxetine) 01/19/2025 8:55 AM GOLF INSTRUCTOR Office Visit [facility] [address] [place] [address] Cathie Cohn, DO Ear Problem (Bilateral ear pain - pressure x1 week) 01/19/2025 Travel 01/12/2025 3:15 PM GOLF INSTRUCTOR Office Visit [facility] [address] [place] [address] Kim Patel, WEIGHT REDUCTION SPECIALIST Medication Management 01/12/2025 Travel from Last 3 Months Immunizations Immunization Administration Dates Next Due AMB Influenza, IIV3 (Age >=3 years)(Flu Clinic Only) 09/06/2011,09/20/2008 AMB Influenza, IIV4 PF (=>6 mos Flulaval,Fluzone Fluarix)(Flu Clinic Only) 09/06/2016,08/13/2014 COVID-19 vaccine (ReversingLabs NTZapya 30mcg/0.3mL) 12YO+ BIVALENT PF, MDV 09/19/2022 DTaP 03/19/2006 WHaK-HgnP-BVF (Pediarix) 06/15/2005,04/13/2005,0 02/13/2005 DTaP-IPV (Kinrix) 12/20/2009 HIB PRP-OMP (PedvaxHIB) 03/19/2006,04/13/2005, HPV 9 (Gardasil 9) 06/27/2017,12/07/2016 Hepatitis A (Peds) 08/11/2018,02/03/2018 Influenza A (H1N1), Inactiva shwetha (Age >=3 Years) 02/01/2010,12/20/2009 Influenza, IIV3 (Age 6-35 mos) 09/06/2011,2004,09/11/2005 Influenza, IIV3 (Age >=3 years) 12/09/2013,08/22,08/08/2009 Influenza, IIV4 08/22/2022,,10/28/2019,02/09,02/03/2018,08/31/2015 MENINGOCOCCAL VACCINE 2 VIAL 2MO-55YO (MENVEO) 01/02/2021,06/27/2017,12/07/2016 MMR 12/20/2009,12/11/2005 Pneumococcal conj 7-Valent (Prevnar 7) 0 03/19/2006,06/15/2005,04/13/2005,02/13 [...] PHQ-2 Answer Date Recorded PHQ-2 TOTAL SCORE 2 03/15/2025 Social Connections Answer Date Recorded Do you often feel lonely or isolated from those around you? 0 01/19/2025 Financial Resource Strain Answer Date R ecorded Difficulty of Paying Living Expenses 3 01/19/2025 Difficulty of Paying Living Expenses Not on file 01/19/2025 Food Insecurity Answer Date Recorded Do you worry your food will run out before you are able to buy more? 1 01/19/2025 Transportation Needs Answer Date Record ed Does lack of transportation keep you from medica l appointments? 1 01/19/2025 Does lack of transportation keep you from work, meetings or getting things that you need? 1 01/19/2025 Housing Stability Answer Date Recorded What is your housing situation today? 1 01/19/2025 Interpersonal Safety Answer Date Record ed Are you being hit, kicked, p ushed or yelled at (see row info)? No 03/19/2024 Interpersonal Safety Abuse 12 - 18 Not on file 03/19/2024 Interpersonal Safety Ambulatory Vulnerability No t on file 03/19/2024 Utilities Answer Date Recorded Do you have trouble paying f or utilities (for example, heat, electricity, water, phone)? 1 01/19/2025 Comments No Sex and Gender Information Value Date Recorded Sex Assigned at Female 12/02/2021 8:02 PM GOLF INSTRUCTOR Legal Sex Female 7:07 AM GOLF INSTRUCTOR Gender Identity Female 12/02/2021 8:02 PM GOLF INSTRUCTOR Sexual Orientation Lesbian or Seaman 12/02/2021 8: 02 PM GOLF INSTRUCTOR Obstetrics History Para Term AB IAB SAB Ectopic Multiple Livin g Live Births 0 0 0 0 0 0 0 0 0 0 0 Last Filed Vital Signs Vital Sign Reading Time Taken Comments Blood Pressure 108/75 03/26/2025 9:19 AM CDT Pulse 81 03/26/2025 9:19 AM CDT Temperature 36.7 C (98 F) 03/26/2025 9:19 AM CDT Respiratory Rate 18 03/19/2024 2:57 PM CDT Oxygen Saturation 98% 03/26/2025 9:19 AM CDT Inhaled Oxygen Concentration - - Weight 106.6 kg (235 lb) 03/26/2025 9:19 AM CDT Height 156.2 cm (5' 1.5) 03/26/2025 9:19 AM CDT Body Mass Index 43.69 03/26/2025 9:19 AM CDT Plan of Treatment Upcoming Encounters Date Type Department Care Team (Late st Contact Info) Description 04/20/2025 2:00 PM CDT Office Visit [facility] [address] [place] [address] Yuliya Leyva MD [address] [place] [address] 06/09/2025 3:15 PM CDT Office Visit [facility] [address] [place] [address] Kim Patel NP [address] [place] [address] Health Maintenance Due Date Last Done Comments Well Child Check for age 3-20 07/11/2023 07/11/2022, 10/28/2020, 02/09/2019, Additional history exists COVID-19 vaccine series ( season) 2024 09/19/2022, 07/07/2021, 06/16/2021 Influenza Vaccine (Season Ended) 2025 08/22/2022, 10/28/2020, 10/28/2019, Additional history exists Depression screening for age 12+ 03/17/2026 03/17/2025, 03/15/2025, 03/15/2025, Additional history exists BMI (ht and wt on same day) for age 18+ 03/26/2026 03/26/2025, 02/17/2024, 02/12/2024, Additional history exists Tetanus booster 06/27/2027 06/27/2017, 12/07/2016 Hepatitis B series for 19+ Completed 06/15, 04/13/2005, 02/13/2005 Pneumococcal series for age 6-49 Aged Out 03/19/2006, 06/15/2005, 04/13/2005, Additional history exists No longer eligible based on patient's age to complete this topic HPV series for age 9-26 Completed 06/27/2017, 12/07 Tdap Completed 06/27/2017, 12/07/2016 Meningococcal series for age 11-21 Completed 01/02/2021, 06/27/2017, 12/07/2016 HIV for age 15-65 Completed 02/22/2023 Hepatitis C screening for age 18-79 Completed 02/22/2023 Procedures Procedure Name Priority Date/Time Associated Diagnosis Comments US ABDOMEN SOFT TISSUE Routine 03/16/2025 3:17 PM CDT Abdominal wall pain in left upper quadrant LC HIV-1/O/2, 4TH GENERATION Routine 02/22/2023 3:37 PM CDT Screening for HIV (human immunodeficiency virus) LC HCV ANTIBODY RFX TO QUANT PCR Routine 02/22/2023 3:37 PM CDT Need for hepatitis C screening test from Last 3 Months or Most Recently Relevant to Health Maintenance Results * US ABDOMEN SOFT TISSUE (03/16/2025 3:17 PM CDT) Anatomical Region Laterality Modality Abdomen Ultrasound 03/16/2025 10:2 2 PM CDT Narrative 03/16/2025 10:22 PM CDT For Patients: As a result of the Cures Act, medical imaging exams and procedure reports are released immediately into your electronic medical record. You may view this report before your referring provider. If you have questions, please contact your health care provider. Indication: Abdominal wall pain Technique: Grayscale and color Doppler ultrasound of the left upper abdominal wall performed in the area of concern. Comparison: None Findings: Isoechoic solid nonvascular nonshadowing mass is present within the subcutaneous tissues which measures 1.8 x 2.8 x 1.1 cm. Impression: Subcutaneous lipoma measures 2.8 cm. No suspicious findings. Dictated by Juan M Oliver MD @ 03/16/2025 10:22:12 PM (Electronically Signed) Procedure Note Juan M Oliver MD - 03/16/2025 For Patients: As a result of the Cures Act, medical imagingexams and procedure reports are released immediately into your electronicmedical record. You may view this report before your referring provider.If you have questions, please contact your health care provider. Indication: Abdominal wall pain Technique: Grayscale and color Doppler ultrasound of the left upper abdominal wallperformed in the area of concern. Comparison: None Findings: Isoechoic solid nonvascular nonshadowing mass is present within thesubcutaneous tissues which measures 1.8 x 2.8 x 1.1 cm. Impression: Subcutaneous lipoma measures 2.8 cm. No suspicious findings. Dictated by Juan M Oliver MD @ 03/16/2025 10:22:12 PM (Electronically Signed) us Alfred Pritchett MD US Final Resu lt * LC HCV ANTIBODY RFX TO QUANT PCR (02/22/2023 3:37 PM CDT) HCV Ab Non Reactive Non Reactive 02/26/2023 10:06 PM CDT [facility] ([facility]) Blood BLOOD SPECIMEN / Unknown Venipuncture / Unknown 02/22/2023 3:37 PM CDT 02/22/2023 3:39 PM CDT [facility] (CET) - 02/26/2023 10:06 PM CDT Performed at: [address] [place] [id number] Risk Management Intern: Kwabena France MD, Phone: [phone] Alfred Pritchett MD LABORATORY Final Resu lt Performing Organization Address City/[facility]/ZIP Co de Phone Number [facility] ([facility]) [address] [place] [address], * LC HIV-1/O/2, 4TH GENERATION (02/22/2023 3:37 PM CDT) [facility] HIV Scr 4th Gen Non Reactive Non Reactive 02/26/2023 4:07 AM CDT [facility] ([facility]) Comment: HIV Negative HIV-1/HIV-2 antibodies and HIV-1 p24 antigen were NOT detected. There is no laboratory evidence of HIV infection. Blood BLOOD SPECIMEN / Unknown Venipuncture / Unknown 02/22/2023 3:37 PM CDT 02/22/2023 3:39 PM CDT [facility] (CET) - 02/26/2023 4:07 AM CDT Performed at: [address] [place] [id number] Risk Management Intern: Kwabena France MD, Phone: [phone] Alfred Pritchett MD LABORATORY Final Resu lt Performing Organization Address City/[facility]/ZIP Co de Phone Number [facility] ([facility]) [address] [place] [address] from Last 3 Months or Most Recently Relevant to Health Maintenance Insurance [facility]ANCE TRUST CCMSI NON-XCEL EMP CHET [address] [phone] [id number] [facility] [place] [address] Care Teams Insurance Counsel Relationship Specialty Start Date End Date Alfred Pritchett MD [address] [place] [address] PCP - General 04/19/06
--- OUTSIDE RECORDS SUMMARY | 2025-04-09 21:13 | XMS_ITS | Clinical Summary ---
Author Organization [facility] Address [address] , [address] [place] [address] Phone Care Team Providers Care Chemical Analyst Name Role Phone Colette THEODORE, Meramaged Granger [phone] Conditions or Problems Problem Name Problem Code Onset Date Status Entry Date Provider Comment Standard Description Annotate Migraine [id number] (SNOMED CT) Active Marquis Mckeon MD Migraine Headache, post traumatic [id number] (SNOMED CT) Active Marquis Mckeon MD Posttraumatic headache Dizziness [id number] (SNOMED CT) Active Marquis Mckeon MD Dizziness Medications Medication Instructions Start Date Stop Date Generic Name ND Provider PROPRANOLOL HCL 20 MG TABS 1 tablet by mouth twice a day 3 propranolol [id number] Marquis Mckeon MD RIZATRIPTAN BENZOATE 10 MG TABS TAKE ONE TABLET BY MOUTH AT ONSET OF MIGRAINE AND EVERY 2 HOURS NEEDED. MAX 2 TABLETS IN 24 HOURS 3 rizatriptan [id number] Marquis Mckeon MD MECLIZINE HCL 25 MG TABS 1 tablet by mouth three times a day as directed For dizziness 3 meclizine [id number] Marquis Mckeon MD Medications Administered No information available. Allergies, Adverse Reactions, Alerts No information available. Results Date Name Value Unit Range Flag Description Office Visit: Office Visit f ax MEDS REVIEW Done Documenta tion of current medications (procedure) Internal Other: Authorizatio n - OBS [email or web address] Yes Authoriza tion: Release of Information - Authorize [facility] - Payment and Healthcare Operations ROIAUTHOTHER Yes Authoriz ation: Release of Information - Authorize Others/Insurance - Payment and Healthcare Operations HIECONSENT Yes Consent To Release information to the Health Information Exchange (HIE) [email or web address] Yes Authorizat ion: Authorization for [facility] to leave messages, voicemail, send text messages, send emails AUTHRELHCARE Yes Authoriz ation: Release/Retrieval of Information to/from Healthcare Facilities, Pharmacy Benefit Payers and Providers AUTHPRIVPRAC Yes Authoriz ation: Notice of privacy practices AUTHBENEFIT Yes Authoriza tion: Assignment of Benefits and Payment Agreement Internal Other: Verbal Autho rization/Emergency Contact - OBS VERBAL_EMER Done Verbal au thorization and emergency contact Plan of Care Type Date Detail Referral Other Referral Pending order MRI-Brain W/WO Pending order MRA-Head W/O Pending order MRA-Neck W/WO Pending order Methylmalonic Ac id Serum (MMA) Pending order Vitamin B12 Pending order Follow up with N eurologist or [facility] Pending order Follow up after testing Pending order Methylmalonic Ac id Serum (MMA) Pending order Vitamin B12 Pending order Follow up with N eurologist or [facility] Pending order Follow up after testing Procedures Code Procedure Name Date Entry Date [facility]-[id number] Documentation of current medicatio ns [facility]-[id number] Documentation of current medicatio ns [facility]-[id number] Documentation of current medicatio ns [facility]-[id number] Documentation of current medicatio ns [id number] MRI-Brain W/WO [id number] MRA-Neck W/WO [id number] MRA-Head W/O ORDERS Other Referral Vital Signs No information available. Immunizations No information available. Advance Directives No information available.
[2025-04-09 21:14] VITALS: BP 118/80; PULSE 92; RESP 16; TEMP 36.4; O2SAT 98; BMI 45.0
[2025-04-09 21:39] LABS: Appearance Urine Clear (Clear); Bilirubin Urine Negative (Negative); Blood Urine 1+ (Negative); Color Urine Yellow (Yellow); Glucose Urine Negative (Negative); Ketones Urine Negative (Negative); Leukocyte Esterase Urine 1+ (Negative); Nitrite Urine Negative (Negative); Protein Urine Negative (Negative); Urobilinogen Urine 0.2 (0.2-1.0); pH Urine 5.5 (5.0-8.5)
--- OUTSIDE RECORDS SUMMARY | 2025-04-09 21:45 | XMS_ITS | Clinical Summary ---
Author Organization [facility] Address [address] , [address] [place] [address] Phone Care Team Providers Care Waist Cutter Name Role Phone Colette THEODORE, Meramaged Granger [phone] Conditions or Problems Problem Name Problem Code Onset Date Status Entry Date Provider Comment Standard Description Annotate Migraine [id number] (SNOMED CT) Active Marquis Mckeon MD Migraine Headache, post traumatic 59587568 (SNOMED CT) Active Marquis Mckeon MD Posttraumatic headache Dizziness 375658226 (SNOMED CT) Active Marquis Mckeon MD Dizziness Medications Medication Instructions Start Date Stop Date Generic Name ND Provider PROPRANOLOL HCL 20 MG TABS 1 tablet by mouth twice a day 3 propranolol [id number] Marquis Mckeon MD RIZATRIPTAN BENZOATE 10 MG TABS TAKE ONE TABLET BY MOUTH AT ONSET OF MIGRAINE AND EVERY 2 HOURS NEEDED. MAX 2 TABLETS IN 24 HOURS 3 rizatriptan [id number] Marquis Mckeon MD MECLIZINE HCL 25 MG TABS 1 tablet by mouth three times a day as directed For dizziness 3 meclizine 10542327468 Marquis Mckeon MD Medications Administered No information [...] Procedures Code Procedure Name Date Entry Date [facility]-[id number] Documentation of current medicatio ns [facility]-[id number] Documentation of current medicatio ns [facility]-[id number] Documentation of current medicatio ns [facility]-[id number] Documentation of current medicatio ns [id number] MRI-Brain W/WO [id number] MRA-Neck W/WO [id number] MRA-Head W/O ORDERS Other Referral Vital Signs No information available. Immunizations No information available. Advance Directives No information available.
--- NOTE | 2025-04-09 21:52 | ED_ITS ---
HPI - General Adult General Chief complaint: Abdominal Pain Stated complaint: Kidney Stones Time Seen by Provider: 04/09/25 21:24 Source: patient Mode of arrival: ambulatory Limitations: no limitations History of Present Illness HPI narrative: 19-year-old female coming in today complaining of left-sided CVA tenderness and continued vomiting. Patient was seen at the [facility] in [facility] on April 07 where she was diagnosed with a left-sided ureteral stone that was 1 mm in diameter, left-sided hydroureteronephrosis present at that time. She was sent home with oral Zofran and no pain m edications according to the patient. She was then seen again on the of continued pain and vomiting. She was treated in the ER and sent home. She returns today with ongoing symptoms. She states that she has vomited so many times today that the last time she vomited she it looked like coffee grounds. She denies any bright red blood in her vomit. She denies feeling dizzy or lightheaded. She denies fevers or chills. States that the pain is not changed, has not gotten worse but is constant. She states that when she gets the treatment in the ER she does feel better. Looking back through her ER notes a looks like she got Toradol at the last visit. Related Data Home Medications ?Medication ?Instructions ?Recorded ?Confirmed bupropion HCl 150 mg 24 hr tablet, 150 mg PO QAM 06/2104/09/25 extended release dextroamphetamine sulfate 10 mg 10 mg PO BID 06/21/23 04/09/25 capsule,extended release fluoxetine 40 mg capsule 40 mg PO DAILY 06/21/2303/19 hydroxyzine HCl 25 mg tablet 25 mg PO DAILY 06/21/23 0 04/09/25 Allergies Allergy/AdvReac Type Severity Reaction Status Date / Time escitalopram (From Lexapro) Allergy Mild Headache Verified 07/09/24 13:55 adhesive AdvReac Mild Rash Verified 07/09/24 13:55 Review of Systems Status of ROS: Reports: 10 or more systems reviewed and unremarkable except as noted in History and below [facility] Medical History IUD complication ?T83.9XXA - Unspecified complication of genitourinary prosthetic device, implant and graft, initial encounter (ICD-10) Family History Family/Other Heart disease Stroke High blood pressure Diabetes Alcohol dependence Aunt Breast cancer High cholesterol Grandmother Ovarian cancer High blood pressure High cholesterol Mother High cholesterol FH: mental illness Alcohol dependence Drug dependence Father Alcohol dependence Drug dependence Social History What is your current living situation?: I presently have a place to live Problems where you live: no known problems In the past 12 months, utilities in danger of being shut off: no In past 12 months, lack of transportation kept you from medical appts, meetings, work, or getting things needed for daily living: no In the past 12 mos, have been you worried that your food would run out before you had money to buy more?: never true In the past 12 mos, the food you bought just didn't last and you didn't have mo mike to buy more?: never true Smoking Status: Never smoker Do you use any of these nicotine containing products: None Second hand tobacco smoke exposure: No How often do you have a drink containing alcohol: never AUDIT-C Alcohol total score: 0 Non-prescribed substance use: denies use How often does anyone, including family, friends and others, physically hurt you : never How often does anyone, including family, friends and others, insult or talk down to you: never How often does anyone, including family, friends and others, threaten you with harm: never How often does anyone, including family, friends and others, scream or curse at you: never service: No Exam Narrative: Exam Narrative: Obese, well-developed patient in no acute distress. Alert and oriented x3. Answers questions appropriately. Mood and affect are appropriate. Thoughts are goal oriented and rational. No tangential or magical thinking noted. Patient speaks in full sentences without needing to catch her breath. Patient does not appear ill or toxic. Does not appear terribly uncomfortable. HEENT: Normocephalic atraumatic. Pupils are equally round reactive to light. Extraocular muscles are intact. Conjunctivae are moist without any icterus noted. Moist mucous membranes. Cardiovascular: Heart is regular rate and rhythm S1 and S2 are present without any murmurs. Lungs: Clear to auscultation bilaterally no wheezes rhonchi or rales are appreciated. Patient takes deep breaths without any discomfort. Abdomen: Soft and nontender nondistended with normal bowel sounds. No guarding or rebound. No masses or organomegaly appreciated. Mild left-sided CVA tenderness. Skin: Well perfused without any obvious rashes. Const: Vital Signs, click to edit/add: Vital Signs - 24 hr 04/09/25 21:14 Temperature 97.6 F Pulse Rate [Pulse Oximeter] 92 Respiratory Rate 16 Blood Pressure [Ri ght Upper Arm] 118/80 Pulse Oximetry 98 Oxygen Delivery Me thod Room Air Course Course ED Course: IV established and patient receives 30 mg of IV ketorolac, 4 mg of IV Zofran and 80 mg of IV pantoprazole. Patient feeling better after treatment. Lab work is unremarkable. CBC is normal. CRP is elevated at 5.5. Blood present in the urine analysis. Vital Signs Vital signs: Initial Vital Signs Temperature 97.6 F 04/09/25 21:14 Temperature Source Temporal Artery Scan 04/09/25 21:14 Pulse Rate 92 04/09/25 21:14 Respiratory Rate 16 04/09/25 21:14 Blood Pressure 118/80 04/09/25 21:14 Blood Pressure Mean 92 04/09/25 21:14 Blood Pressure Position Sitting 04/09/25 21:14 Pulse Oximetry 98 04/09/25 21:14 Oxygen Delivery Method Room Air 04/09/25 21:14 Vital Signs Temperature 97.6 F 04/09/25 21:14 Pulse Rate 92 04/09/25 21:14 Respiratory Rate 16 04/09/25 21:14 Blood Pressure 118/80 04/09/25 21:14 Pulse Oximetry 98 04/09/25 21:14 Oxygen Delivery Method Room Air 04/09/25 21:14 Temperature 97.6 F 04/09/25 21:14 Pulse Rate 92 04/09/25 21:14 Respiratory Rate 16 04/09/25 21:14 Blood Pressure 118/80 04/09/25 21:14 Pulse Oximetry 98 04/09/25 21:14 Oxygen Delivery Method Room Air 04/09/25 21:14 Medications Administered Medications: Discontinued Medications Generic Name Dose Route Start Last Admin Trade Name Freq PRN Reason Stop Dose Admin Ketorolac Tromethamine 30 mg 04/09/25 21:29 04/09/25 21:56 Ketorolac 30 Mg/Ml Inj IVP 04/09/25 21:30 30 mg ONCE ONE Administration Ondansetron HCl 4 mg 04/09/25 21:29 04/09/25 21:55 Ondansetron 2 Mg/Ml Inj IVP 04/09/25 21:30 4 mg ONCE ONE Administration Pantoprazole Sodium 80 mg 04/09/25 21:29 04/09/25 21:56 Pantoprazole Sodium 40 Mg Inj IVP 04/09/25 21:30 80 mg ONCE ONE Administration Medical Decision Making MDM Narrative Medical decision making narrative: 19-year-old female with a kidney stone, having a hard time with nausea and vomiting. Presents today with episode of coffee-ground emesis. Patient is hemodynamically stable, CBC is normal and she appears to be in no acute distress. Discussed that the best treatment is Toradol, however this can cause increase in GI discomfort and bleed. Because of this we will send the patient home with handful of hydrocodone tablets. I would like for her to follow up closely with her primary care provider until stone passes. Medical Records Medical records reviewed: Yes I reviewed the patient's medical records Lab Data Lab results reviewed: Yes I reviewed the patient's lab results Labs: Lab Results 04/09/25 04/09/25 Range/Units 21:21 21:50 WBC 8.97 (4.50-11.00) K/uL RBC 4.65 (4.00-5.20) m/uL Hgb 13.2 (12.0-16.0) gm/dL Hct 40.3 (33.0-51.0) % MCV 87 (80-100) fL MCH 28 (26-34) pg MCHC 33 (32-36) gm/dL RDW Coeff of Martine 12.1 (11.5-15.5) % Plt Count 255 (140-440) K/uL Neut % (Auto) 64.1 (42.0-72.0) % Lymph % (Auto) 24.5 (20-44) % [place] % (Auto) 8.0 (0.0-11.0) % Eos % (Auto) 2.1 (0.0-7.0) % Baso % (Auto) 0.1 (0.0-3.0) % Neut # (Auto) 5.74 (1.7-7.0) K/uL Lymph # (Auto) 2.20 (0.90-2.90) K/uL [place] # (Auto) 0.70 (0.00-0.90) K/UL Eos # (Auto) 0.19 (0.00-0.50) K/uL Baso # (Auto) 0.01 (0.00-0.30) K/uL Abs Immat Gran (auto) 0.11 (0.00-0.30) K/uL Imm/Tot Granulo (auto) 1.2 % Sodium 138 (135-149) mmol/L Potassium 3.7 (3.6-5.1) mmol/L Chloride 104 (96-114) mmol/L Carbon Dioxide 27 (20-32) mmol/L Anion Gap 7 (7-15) mEq/L BUN 11 (5-24) mg/dL Creatinine 1.3 (0.5-1.5) mg/dL Estimated Creat Clear 52.09 Estimated GFR 60 ml/min Glucose 96 (60-115) mg/dL Lactate 0.8 (0.5-1.9) mmol/L Calcium 9.0 (8.4-10.6) mg/dL C-Reactive Protein 5.5 H (0.5-1.0) mg/dL Urine Color Yellow (Yellow) Urine Appearance Clear (Clear) Urine pH 5.5 (5.0-8.5) Ur Specific [place] 1.020 (1.000-1.030) Urine Protein Negative (Negative) Urine Glucose (UA) Negative (Negative) Urine Ketones Negative (Negative) Urine Blood 1+ A (Negative) Urine Nitrite Negative (Negative) Urine Bilirubin Negative (Negative) Urine Urobilinogen 0.2 (0.2-1.0) Ur Leukocyte Esterase 1+ A (Negative) Urine RBC 5-10 A (0-2) Urine WBC 2-5 (0-5) Ur Squamous Epith Cells Moderate A (None-Few) Urine Bacteria Few A (None) Discharge Plan Discharge Clinical Impression: Kidney stone, Coffee ground vomiting Patient Disposition: Home, Self-Care Condition: Stable Additional Instructions: Take pain medication as needed for your kidney stone. Coffee-ground vomiting generally means that there is a small area of bleeding in the stomach or in the small intestine. Because of this you should start taking a daily antacid medication-recommend omeprazole 20 mg daily. This can be purchased [id number]. Avoid taking ibuprofen or using alcohol. You should follow-up with your primary care provider on Saturday for a repeat complete blood cell count. You should return to the emergency department immediately if you vomit bright red blood or if you develop fever. Continue using your Zofran as needed to suppress vomiting. Eight tablets of hydrocodone sent to [facility]. Prescriptions: No Action dextroamphetamine sulfate 10 mg capsule, extended release 10 mg PO BID hydroxyzine HCl 25 mg tablet 25 mg PO DAILY bupropion HCl 150 mg tablet extended release 24 hr 150 mg PO QAM fluoxetine 40 mg capsule 40 mg PO DAILY Follow Up/Referrals: Alfred Pritchett MD [Primary Care Provider, Family Practice] Stand Alone Forms: Open[employer] Info Instructions
[2025-04-09] MEDS: ONDANSETRON 2 MG/ML inj 4 MG IVP (21:55)
[2025-04-09] MEDS: KETOROLAC 30 MG/ML inj IVP (21:56)
[2025-04-09] MEDS: PANTOPRAZOLE SODIUM 40 MG INJ 80 MG IVP (21:56)
[2025-04-09 22:04] LABS: Lactate* 0.8 mmol/L (0.5-1.9)
[2025-04-09 22:16] LABS: Basophils Absolute Auto 0.01 K/uL (0.00-0.30); Basophils Percent Auto 0.1 % (0.0-3.0); Eosinophils Absolute Auto 0.19 K/uL (0.00-0.50); Eosinophils Percent Auto 2.1 % (0.0-7.0); Hematocrit 40.3 % (33.0-51.0); Hemoglobin* 13.2 gm/dL (12.0-16.0); Immature Granulocytes Abs Auto 0.11 K/uL (0.00-0.30); Immature Granulocytes Pct Auto 1.2 %; Lymphocytes Percent Auto 24.5 % (20-44); Mean Corpuscular HGB Conc 33 gm/dL (32-36); Mean Corpuscular Hemoglobin 28 pg (26-34); Mean Corpuscular Volume 87 fL (80-100); Neutrophils Absolute Auto 5.74 K/uL (1.7-7.0); Neutrophils Percent Auto 64.1 % (42.0-72.0); Platelet Count* 255 K/uL (140-440); RDW Coefficient of Variation % 12.1 % (11.5-15.5); Red Blood Count 4.65 m/uL (4.00-5.20); White Blood Count* 8.97 K/uL (4.50-11.00)
[2025-04-09 22:18] LABS: Bacteria Urine Few; Squamous Epithelial Cell Urine Moderate (None-Few)
[2025-04-09 22:19] LABS: Chloride* 104 mmol/L (96-114); Sodium* 138 mmol/L (135-149)
[2025-04-09 22:20] LABS: Potassium* 3.7 mmol/L (3.6-5.1)
[2025-04-09 22:22] LABS: Blood Urea Nitrogen* 11 mg/dL (5-24); Creatinine* 1.3 mg/dL (0.5-1.5); Est. Creatinine Clearance* 52.09; Estimated Glomerular Filt Rate 60 ml/min
[2025-04-09 22:23] LABS: Anion Gap 7 mEq/L (7-15); Carbon Dioxide* 27 mmol/L (20-32); Glucose* 96 mg/dL (60-115)
[2025-04-09 22:26] LABS: C Reactive Protein* 5.5 mg/dL (0.5-1.0)
[2025-04-09 22:57] VITALS: BP 130/78; PULSE 95; RESP 18; O2SAT 98
[2025-04-10 00:08] LABS: Slide Review Reflex No
== END 2025-04-09 23:06 | disposition home or self-care (01) ==
PROVIDERS: Emergency Medicine; Emergency Provider Family Medicine; PCP Family Medicine
DX: N20.0 Calculus of kidney (principal); K92.0 Hematemesis
CPT/HCPCS: 36415; 80048; 81001; 83605; 85025; 86140; 87086; 96374; 96375; 99284; J1885; J2405; J2470

== ENCOUNTER 2025-04-10 16:15 | Emergency (ER) | payer BC, MEDICAID, SELFPAY ==
--- OUTSIDE RECORDS SUMMARY | 2025-04-10 16:17 | XMS_ITS | Clinical Summary ---
Author Organization [facility] Address [address] , [address] [place] [address] Phone Care Team Providers Care Records Specialist Name Role Phone Colette THEODORE, Meramaged Granger [phone] Conditions or Problems Problem Name Problem Code Onset Date Status Entry Date Provider Comment Standard Description Annotate Migraine [id number] (SNOMED CT) Active Marquis Mckeon MD Migraine Headache, post traumatic 15784292 (SNOMED CT) Active Marquis Mckeon MD Posttraumatic headache Dizziness 734513926 (SNOMED CT) Active Marquis Mckeon MD Dizziness Medications Medication Instructions Start Date Stop Date Generic Name ND Provider PROPRANOLOL HCL 20 MG TABS 1 tablet by mouth twice a day 3 propranolol 07724823103 Marquis Mckeon MD RIZATRIPTAN BENZOATE 10 MG TABS TAKE ONE TABLET BY MOUTH AT ONSET OF MIGRAINE AND EVERY 2 HOURS NEEDED. MAX 2 TABLETS IN 24 HOURS 3 rizatriptan 49653871375 Marquis Mckeon MD MECLIZINE HCL 25 MG TABS 1 tablet by mouth three times a day as directed For dizziness 3 meclizine 58678962605 Marquis Mckeon MD Medications Administered No information [...] Procedures Code Procedure Name Date Entry Date [facility]-[id number] Documentation of current medicatio ns [facility]-[id number] Documentation of current medicatio ns [facility]-[id number] Documentation of current medicatio ns [facility]-[id number] Documentation of current medicatio ns [id number] MRI-Brain W/WO [id number] MRA-Neck W/WO [id number] MRA-Head W/O ORDERS Other Referral Vital Signs No information available. Immunizations No information available. Advance Directives No information available.
--- OUTSIDE RECORDS SUMMARY | 2025-04-10 16:17 | XMS_ITS | Clinical Summary ---
Author Organization [facility] Address [address] [place] [address] Care Team Providers Care Elementary Math Tutor Name Role Phone Alfred Pritchett MD Primary Care Provider [phone] Allergies Active Allergy Reactions Criticality Noted Date [...] Encounters Date Type Department Care Team Description 04/10/2025 Travel 04/09/2025 Telephone [facility] [address] [place] [address] Kim Patel NP Refill Request (dextroamphetamine CONTROLLED RELEASE (Dexedrine) 10 mg capsule ) 03/26/2025 9:15 AM CDT Office Visit [address] [address] Alfred Pritchett MD Abdominal Pain (Upper left abdominal pain); Results (Go over ultrasound results); Cough (2.5 weeks of coughing - tessalon didn't help/COVID-19 testing negative x3) 03/26/2025 Travel 03/17/2025 Telephone [facility] [address] [place] [address] Alfred Pritchett MD Results (Ultrasound results) 03/16/2025 3:15 PM CDT Ancillary Procedure [address] [address] 03/15/2025 3:15 PM CDT Office Visit [address] [address] Kim Patel NP Follow Up; Medication Management 03/15/[address] [address] Kim Patel NP Medication Management (dextroamphetamine ) 03/15/2025 Travel 03/05/2025 12:40 PM CDT Office Visit [address] [address] Alfred Pritchett MD Lump (Lump left side of rib area, under breast/Pain x 2 days) 03/05/2025 Travel 02/04/2025 Refill [facility] [address] [place] [address] Kim Patel, DIRECTOR OF ANALYTICAL DEVELOPMENT Refill Request (Bupropion, Fluoxetine) 01/19/2025 8:55 AM ESTIMATING ENGINEER Office Visit [facility] [address] [place] [address] Cathie Cohn Crystal, DO Ear Problem (Bilateral ear pain - pressure x1 week) 01/19/2025 Travel 01/12/2025 3:15 PM ESTIMATING ENGINEER Office Visit [facility] [address] [place] [address] Kim Patel, DIRECTOR OF ANALYTICAL DEVELOPMENT Medication Management 01/12/2025 Travel from Last 3 Months Immunizations Immunization Administration Dates Next Due AMB Influenza, IIV3 (Age >=3 years)(Flu Clinic Only) 09/06/2011,09/20/2008 AMB Influenza, IIV4 PF (=>6 mos Flulaval,Fluzone Fluarix)(Flu Clinic Only) 09/06/2016,08/13/2014 COVID-19 vaccine ([employer] 30mcg/0.3mL) 12YO+ BIVALENT PF, MDV 09/19/2022 DTaP 03/19/2006 [id number] (Pediarix) 06/15/2005,04/13/2005,0 02/13/2005 DTaP-IPV (Kinrix) 12/20/2009 HIB [...] Sex Assigned at Female 12/02/2021 8:02 PM ESTIMATING ENGINEER Legal Sex Female 7:07 AM ESTIMATING ENGINEER Gender Identity Female 12/02/2021 8:02 PM ESTIMATING ENGINEER Sexual Orientation Lesbian or Seaman 12/02/2021 8: 02 PM ESTIMATING ENGINEER Obstetrics History Para Term AB IAB SAB [...] Care Team (Late st Contact Info) Description 04/14/2025 2:40 PM CDT Office Visit [facility] [address] [place] [address] Bonifacio Anthony MD [address] [place] [address] 04/20/2025 2:00 PM CDT Office Visit [facility] [address] [place] [address] Yuliya Leyva MD [address] [place] [address] 06/09/2025 3:15 PM CDT Office Visit [facility] [address] [place] [address] Kim Patel, DIRECTOR OF ANALYTICAL DEVELOPMENT [address] [place] [address] Health Maintenance Due Date Last Done Comments [...] Reactive Non Reactive 02/26/2023 10:06 PM CDT [facility] ([facility]) Blood BLOOD SPECIMEN / Unknown Venipuncture / Unknown 02/22/2023 3:37 PM CDT 02/22/2023 3:39 PM CDT Narrative [facility] ([facility]) - 02/26/2023 10:06 PM CDT Performed at: [address] [id number] Ramp Supervisor: Kwabena France MD, Phone: [phone] us Alfred Pritchett MD LABORATORY Final Resu lt Performing Organization Address [facility]/ZIP Co de Phone Number [facility] ([facility]) [address] [place] [address], * HIV-1/O/2, 4TH GENERATION (02/22/2023 3:37 PM CDT) Pathologist [facility] HIV Scr 4th Gen Non Reactive Non Reactive 02/26/2023 4:07 AM CDT [facility] ([facility]) Comment: HIV Negative HIV-1/HIV-2 antibodies and HIV-1 p24 antigen were NOT detected. There is no laboratory evidence of HIV infection. Blood BLOOD SPECIMEN / Unknown Venipuncture / Unknown 02/22/2023 3:37 PM CDT 02/22/2023 3:39 PM CDT [facility] ([facility]) - 02/26/2023 4:07 AM CDT Performed at: [address] [place] [id number] Ramp Supervisor: Kwabena France MD, Phone: [phone] Alfred Pritchett MD LABORATORY Final Resu lt Performing Organization Address City/[facility]/ZIP Co de Phone Number [facility] [address] [place] [address], from Last 3 Months or Most Recently Relevant to Health Maintenance [place] [address] [facility] NONPROFIT INSURANCE TRUST [employer] NON-XCEL EMP [address] [id number] [place] [address] Care Teams Elementary Math Tutor Relationship Specialty Start Date End Date Alfred Pritchett MD [address] [place] [address] PCP - General 04/19/06
[2025-04-10 16:28] VITALS: BP 125/96; PULSE 79; RESP 20; TEMP 35.1; O2SAT 97; BMI 43.5
--- NOTE | 2025-04-10 16:51 | ED.GENADULT ---
HPI - General Adult General Chief complaint: Nausea/Vomiting Stated complaint: Nausea, vomiting Time Seen by Provider: 04/10/25 16:19 History of Present Illness HPI narrative: This 19-year-old female comes in with her mother reporting persistent recurring vomiting with upper epigastric discomfort. She was visiting in a [place] area and went into an emergency department a few days ago at which time she had a CT scan that did show evidence of a 2 mm kidney stone. She states that that stone was up in the kidney and not down in the ureter. The patient states that she does not normally have vomiting symptoms like this. She does arrive here with normal vital signs. Related Data Home Medications ?Medication ?Instructions ?Recorded ?Confirmed bupropion HCl 150 mg 24 hr tablet, 150 mg PO QAM 06/21/23 04/09/25 extended release dextroamphetamine sulfate 10 mg 10 mg PO BID 06/21/23 04/09/25 capsule,extended release fluoxetine 40 mg capsule 40 mg PO DAILY 06/21/23 04/09/25 hydroxyzine HCl 25 mg tablet 25 mg PO DAILY 06/21/23 04/09/25 Previous Rx's ?Medication ?Instructions ?Recorded hydrocodone 5 mg-acetaminophen 325 1 tab PO Q4-6H PRN pain #10 tabs 04/10/25 mg tablet ketorolac 10 mg tablet 10 mg PO TID 5 days #15 tabs 04/10/25 Allergies Allergy/AdvReac Type Severity Reaction Status Date / Time escitalopram (From Lexapro) Allergy Mild Headache Verified 04/10/25 16:27 adhesive AdvReac Mild Rash Verified 04/10/25 16:27 Review of Systems Status of ROS: Reports: 10 or more systems reviewed and unremarkable except as noted in History and below Narrative: Constitutional: No fevers, no weight gain or loss. Eyes: No discharge. No vision changes. HENT: No congestion, no sore throat, no ear pain. Cardiovascular: No chest pain, no palpitations. Respiratory: No shortness of breath, no wheezes, no cough. Gastrointestinal: Vomiting with nausea. Upper epigastric abdominal discomfort. Genitourinary: No dysuria, no hematuria. Musculoskeletal: Normal range of motion. Skin: No rashes, no pruritis. Neurological: No dizziness, weakness, sensory change, speech change. Endo/Heme/Allergies: No bruising or bleeding. No polydipsia. Pysch: no suicidality, no anxiety, no insomnia. All other systems reviewed and are negative. [facility] Medical History IUD complication ?T83.9XXA - Unspecified complication of genitourinary prosthetic device, implant and graft, initial encounter (ICD-10) Family History Family/Other Heart disease Stroke High blood pressure Diabetes Alcohol dependence Aunt Breast cancer High cholesterol Grandmother Ovarian cancer High blood pressure High cholesterol Mother High cholesterol FH: mental illness Alcohol dependence Drug dependence Father Alcohol dependence Drug dependence Social History What is your current living situation?: I presently have a place to live Problems where you live: no known problems In the past 12 months, utilities in danger of being shut off: no In past 12 months, lack of transportation kept you from medical appts, meetings, work, or getting things needed for daily living: no In the past 12 mos, have been you worried that your food would run out before you had money to buy more?: never true In the past 12 mos, the food you bought just didn't last and you didn't have money to buy more?: never true Smoking Status: Never smoker Do you use any of these nicotine containing products: None Second hand tobacco smoke exposure: No How often do you have a drink containing alcohol: never AUDIT-C Alcohol total score: 0 Non-prescribed substance use: denies use How often does anyone, including family, friends and others, physically hurt you: never How often does anyone, including family, friends and others, insult or talk down to you: never How often does anyone, including family, friends and others, threaten you with harm: never How often does anyone, including family, friends and others, scream or curse at you: never service: No Exam Narrative: Exam Narrative: Constitutional: Well-developed, well-nourished, no acute distress. HEENT: Normocephalic, atraumatic. Neck: Normal range of motion. Nontender. Supple. Heart: Regular. No murmurs. Normal rate. Intact distal pulses. Lungs: Clear to auscultation. No chest discomfort. No wheezes, rhonchi, or rales. Abdomen: Normal bowel sounds. Pain reported in upper epigastric region. No rebound tenderness. Genitalia: Deferred. Back: No midline tenderness. Normal range of motion. Extremities: Normal range of motion. No injury. Skin: Intact. No rash. Warm. No erythema or pallor. Neurologic: No altered sensation. No weakness. Alert and oriented. Psychiatric: No suicidality. No anxiety or depression. No insomnia. Nursing notes and vitals signs are reviewed. Const: Vital Signs, click to edit/add: Vital Signs - 24 hr 04/10/25 16:28 Temperature 95.1 F L Pulse Rate [Pulse Oximeter] 79 Respiratory Rate 20 Blood Pressure [Ri ght Upper Arm] 125/96 H Pulse Oximetry 97 Oxygen Delivery Me thod Room Air Course Vital Signs Vital signs: Initial Vital Signs Temperature 95.1 F L 04/10/25 16:28 Temperature Source Temporal Artery Scan 04/10/25 16:28 Pulse Rate 79 04/10/25 16:28 Respiratory Rate 20 04/10/25 16:28 Blood Pressure 125/96 H 04/10/25 16:28 Blood Pressure Mean 105 04/10/25 16:28 Blood Pressure Position Semi-Fowlers 04/10/25 16:28 Pulse Oximetry 97 04/10/25 16:28 Oxygen Delivery Method Room Air 04/10/25 16:28 Vital Signs Temperature 95.1 F L 04/10/25 16:28 Pulse Rate 79 04/10/25 16:28 Respiratory Rate 20 04/10/25 16:28 Blood Pressure 125/96 H 04/10/25 16:28 Pulse Oximetry 97 04/10/25 16:28 Oxygen Delivery Method Room Air 04/10/25 16:28 Temperature 95.1 F L 04/10/25 16:28 Pulse Rate 79 04/10/25 16:28 Respiratory Rate 20 04/10/25 16:28 Blood Pressure 125/96 H 04/10/25 16:28 Pulse Oximetry 97 04/10/25 16:28 Oxygen Delivery Method Room Air 04/10/25 16:28 Medications Administered Medications: Discontinued Medications Generic Name Dose Route Start Last Admin Trade Name Freq PRN Reason Stop Dose Admin Hydromorphone HCl 0.5 mg 04/10/25 17:42 04/10/25 17:50 Hydromorphone 0.5 Mg/0.5 Ml Inj IVP 04/10/25 17:43 0.5 mg ONCE ONE Administration Sodium Chloride 1,000 mls @ 1,000 mls/hr 04/10/25 17:00 04/10/25 17:25 0.9 % Sodium Chloride 1000 Ml IV 04/10/25 17:59 1,000 mls/hr .Q1H XIOMY Administration Ketorolac Tromethamine 30 mg 04/10/25 17:42 04/10/25 17:53 Ketorolac 30 Mg/Ml Inj IVP 04/10/25 17:43 30 mg ONCE ONE Administration Ondansetron HCl 4 mg 04/10/25 16:51 04/10/25 17:28 Ondansetron 2 Mg/Ml Inj IVP 04/10/25 16:52 4 mg ONCE ONE Administration Medical Decision Making MDM Narrative Medical decision making narrative: This patient does have an established diagnosis of utero lithiasis and was seen here yesterday. She does have a relatively smaller stone but it is noted in previous imaging in the ureter and causing some mild hydronephrosis. An IV was established here today and the patient did receive doses of Zofran, Toradol, and Dilaudid and this helped her feel better. She is no longer persistently vomiting. Labs are acquired and these also returned with reassuring results. Urinalysis does not show any sign of microscopic hematuria or infection. She is okay to be discharged home. I did provide [facility] prescription for Zofran ODT and prescriptions from her pharmacy for Toradol and [place]. Lab Data Labs: Lab Results 04/10/25 04/10/25 Range/Units 16:45 17:15 WBC 9.40 (4.50-11.00) K/uL RBC 4.67 (4.00-5.20) m/uL Hgb 13.1 (12.0-16.0) gm/dL Hct 40.4 (33.0-51.0) % MCV 87 (80-100) fL MCH 28 (26-34) pg MCHC 32 (32-36) gm/dL RDW Coeff of Martine 11.9 (11.5-15.5) % Plt Count 256 (140-440) K/uL Neut % (Auto) 79.0 H (42.0-72.0) % Lymph % (Auto) 13.9 L (20-44) % [place] % (Auto) 5.7 (0.0-11.0) % Eos % (Auto) 0.9 (0.0-7.0) % Baso % (Auto) 0.2 (0.0-3.0) % Neut # (Auto) 7.40 H (1.7-7.0) K/uL Lymph # (Auto) 1.30 (0.90-2.90) K/uL [place] # (Auto) 0.50 (0.00-0.90) K/UL Eos # (Auto) 0.08 (0.00-0.50) K/uL Baso # (Auto) 0.02 (0.00-0.30) K/uL Abs Immat Gran (auto) 0.03 (0.00-0.30) K/uL Imm/Tot Granulo (auto) 0.3 % Sodium 140 (135-149) mmol/L Potassium 3.8 (3.6-5.1) mmol/L Chloride 106 (96-114) mmol/L Carbon Dioxide 25 (20-32) mmol/L Anion Gap 9 (7-15) mEq/L BUN 10 (5-24) mg/dL Creatinine 1.4 (0.5-1.5) mg/dL Estimated Creat Clear 48.37 Estimated GFR 55 ml/min Glucose 99 (60-115) mg/dL Calcium 9.1 (8.4-10.6) mg/dL Urine Color Yellow (Yellow) Urine Appearance Cloudy A (Clear) Urine pH 6.0 (5.0-8.5) Ur Specific [place] >= 1.030 (1.000-1.030) Urine Protein 1+ A (Negative) Urine Glucose (UA) Negative (Negative) Urine Ketones 2+ A (Negative) Urine Blood Trace-intact A (Negative) Urine Nitrite Negative (Negative) Urine Bilirubin 1+ A (Negative) Urine Urobilinogen 1.0 (0.2-1.0) Ur Leukocyte Esterase Negative (Negative) Urine RBC 0-2 (0-2) Urine WBC 0-2 (0-5) Ur Squamous Epith Cells Few (None-Few) Calcium Oxalate Crystal Few A (None) Amorphous Sediment Few A (None) Other Sediment Few A (None) Urine Bacteria Moderate A (None) Discharge Plan Discharge Clinical Impression: Calculus, ureteral Patient Disposition: Home w/ Parent or Adult Condition: Improved Additional Instructions: Take medications as needed and directed. Take frequent sips of fluids and increase diet as tolerated. Follow up with MD return if worsening. Prescriptions: New hydrocodone-acetaminophen 5-325 mg tablet 1 tab PO Q4-6H PRN (Reason: pain) Qty: 10 0RF ketorolac 10 mg tablet 10 mg PO TID 5 Days Qty: 15 0RF No Action dextroamphetamine sulfate 10 mg capsule, extended release 10 mg PO BID hydroxyzine HCl 25 mg tablet 25 mg PO DAILY bupropion HCl 150 mg tablet extended release 24 hr 150 mg PO QAM fluoxetine 40 mg capsule 40 mg PO DAILY Follow Up/Referrals: Alfred Pritchett MD [Primary Care Provider, Family Practice] Stand Alone Forms: RUS[employer] Info Instructions
[2025-04-10 17:06] LABS: Appearance Urine Cloudy (Clear); Bilirubin Urine 1+ (Negative); Blood Urine Trace-intact (Negative); Color Urine Yellow (Yellow); Glucose Urine Negative (Negative); Ketones Urine 2+ (Negative); Leukocyte Esterase Urine Negative (Negative); Nitrite Urine Negative (Negative); Protein Urine 1+ (Negative); Specific Gravity Urine >= 1.030 (1.000-1.030)
--- OUTSIDE RECORDS SUMMARY | 2025-04-10 17:13 | XMS_ITS | Clinical Summary ---
Author Organization [facility] Address [address] , [address] [place] [address] Phone Care Team Providers Care Shift Superintendent Caustic Cresylate Name Role Phone Colette THEODORE, Meramaged Granger [phone] Conditions or Problems Problem Name Problem Code Onset Date Status Entry Date Provider Comment Standard Description Annotate Migraine 52454504 (SNOMED CT) Active Marquis Mckeon MD Migraine Headache, post traumatic 81571110 (SNOMED CT) Active Marquis Mckeon MD Posttraumatic headache Dizziness 045663758 (SNOMED CT) Active Marquis Mckeon MD Dizziness Medications Medication Instructions Start Date Stop Date Generic Name ND Provider PROPRANOLOL HCL 20 MG TABS 1 tablet by mouth twice a day 3 propranolol [id number] Marquis Mckeon MD RIZATRIPTAN BENZOATE 10 MG TABS TAKE ONE TABLET BY MOUTH AT ONSET OF MIGRAINE AND EVERY 2 HOURS NEEDED. MAX 2 TABLETS IN 24 HOURS 3 rizatriptan [id number] Marquis Mckeon MD MECLIZINE HCL 25 MG TABS 1 tablet by mouth three times a day as directed For dizziness 3 meclizine [id number] Marquis Mckeon MD Medications Administered No information [...] Procedure Name Date Entry Date [facility]-[id number] Documentation of current medicatio ns [facility]-[id number] Documentation of current medicatio ns [facility]-[id number] Documentation of current medicatio ns [facility]-[id number] Documentation of current medicatio ns [id number] MRI-Brain W/WO [id number] MRA-Neck W/WO [id number] MRA-Head W/O ORDERS Other Referral Vital Signs No information available. Immunizations No information available. Advance Directives No information available.
[2025-04-10 17:23] LABS: Basophils Absolute Auto 0.02 K/uL (0.00-0.30); Basophils Percent Auto 0.2 % (0.0-3.0); Eosinophils Absolute Auto 0.08 K/uL (0.00-0.50); Eosinophils Percent Auto 0.9 % (0.0-7.0); Hematocrit 40.4 % (33.0-51.0); Hemoglobin* 13.1 gm/dL (12.0-16.0); Immature Granulocytes Abs Auto 0.03 K/uL (0.00-0.30); Immature Granulocytes Pct Auto 0.3 %; Lymphocytes Percent Auto 13.9 % (20-44); Mean Corpuscular HGB Conc 32 gm/dL (32-36); Mean Corpuscular Hemoglobin 28 pg (26-34); Mean Corpuscular Volume 87 fL (80-100); Monocytes Percent Auto 5.7 % (0.0-11.0); Platelet Count* 256 K/uL (140-440); RDW Coefficient of Variation % 11.9 % (11.5-15.5); Red Blood Count 4.67 m/uL (4.00-5.20)
[2025-04-10 17:25] LABS: Amorphous Sediment Urine Few; Bacteria Urine Moderate; Other Sediment Urine Few; RBC Urine 0-2 (0-2); Squamous Epithelial Cell Urine Few (None-Few); WBC Urine 0-2 (0-5)
[2025-04-10] MEDS: 0.9 % SODIUM CHLORIDE 1000 ml 1,000 ML IV (17:25)
[2025-04-10 17:26] LABS: Calcium Oxalate Crystals Urine Few
[2025-04-10] MEDS: ONDANSETRON 2 MG/ML inj 4 MG IVP (17:28)
[2025-04-10 17:42] LABS: Slide Review Reflex No
[2025-04-10 17:45] LABS: Chloride* 106 mmol/L (96-114); Potassium* 3.8 mmol/L (3.6-5.1); Sodium* 140 mmol/L (135-149)
[2025-04-10 17:48] LABS: Anion Gap 9 mEq/L (7-15); Blood Urea Nitrogen* 10 mg/dL (5-24); Calcium* 9.1 mg/dL (8.4-10.6); Carbon Dioxide* 25 mmol/L (20-32); Creatinine* 1.4 mg/dL (0.5-1.5); Est. Creatinine Clearance* 48.37; Estimated Glomerular Filt Rate 55 ml/min; Glucose* 99 mg/dL (60-115)
[2025-04-10] MEDS: HYDROmorphone 0.5 mg/0.5 ml inj IVP (17:50)
[2025-04-10] MEDS: KETOROLAC 30 MG/ML inj IVP (17:53)
[2025-04-10 19:00] VITALS: PULSE 75; O2SAT 99
== END 2025-04-10 19:09 | disposition home or self-care (01) ==
PROVIDERS: Emergency Provider Emergency Medicine Emergency Medical Services; PCP Family Medicine
DX: N20.1 Calculus of ureter (principal)
CPT/HCPCS: 36415; 80048; 81001; 85025; 96361; 96374; 96375; 99284; J1171; J1885; J2405; J7030

== ENCOUNTER 2025-04-14 15:25 | Emergency (ER) | payer BC, MEDICAID, SELFPAY ==
[2025-04-14] VITALS (17 sets, daily range): BP systolic 123–140; BP diastolic 76–83; PULSE 66–87; RESP 20; TEMP 36.1; O2SAT 97–100; BMI 43.3
--- OUTSIDE RECORDS SUMMARY | 2025-04-14 15:26 | XMS_ITS | Clinical Summary ---
Author Organization [facility] Address [address] , [address] [place] [address] Phone Care Team Providers Care Binder Sorter Name Role Phone Colette THEODORE, Meramaged Granger [phone] Conditions or Problems Problem Name Problem Code Onset Date Status Entry Date Provider Comment Standard Description Annotate Migraine [id number] (SNOMED CT) Active Marquis Mckeon MD Migraine Headache, post traumatic 12828980 (SNOMED CT) Active Marquis Mckeon MD Posttraumatic headache Dizziness 740510941 (SNOMED CT) Active Marquis Mckeon MD Dizziness Medications Medication Instructions Start Date Stop Date Generic Name ND Provider PROPRANOLOL HCL 20 MG TABS 1 tablet by mouth twice a day 3 propranolol [id number] Marquis Mckeon MD RIZATRIPTAN BENZOATE 10 MG TABS TAKE ONE TABLET BY MOUTH AT ONSET OF MIGRAINE AND EVERY 2 HOURS NEEDED. MAX 2 TABLETS IN 24 HOURS 3 rizatriptan [id number] Marquis Mckeon MD MECLIZINE HCL 25 MG TABS 1 tablet by mouth three times a day as directed For dizziness 3 meclizine [id number] Marquis Mckeon MD Medications Administered No information [...] Procedures Code Procedure Name Date Entry Date [facility]-[id number] Documentation of current medicatio ns [facility]-[id number] Documentation of current medicatio ns [facility]-[id number] Documentation of current medicatio ns [facility]-[id number] Documentation of current medicatio ns [id number] MRI-Brain W/WO [id number] MRA-Neck W/WO [id number] MRA-Head W/O ORDERS Other Referral Vital Signs No information available. Immunizations No information available. Advance Directives No information available.
--- OUTSIDE RECORDS SUMMARY | 2025-04-14 15:27 | XMS_ITS | Clinical Summary ---
Author Organization [facility] Address [address] [place] [address] Care Team Providers Care Infrastructure Software Engineer Name Role Phone Alfred Pritchett MD Primary Care Provider [phone] Allergies Active Allergy Reactions Criticality Noted Date Comments Adhesive Rash Low 10/15/2023 rash from bandaid Escitalopram Oxalate Headache 07/11/2022 numbness Medications acetaminophen (Tylenol Extra Strength) 500 mg tablet Take 1,000 mg by mouth every 6 hours if needed for Pain or Headache. Max acetaminophen dose: 4000mg in 24 hrs. Active meloxicam 15 mg tabletIndications :Concussion without loss of consciousness, subsequent encounter Take [...] 23 Active benzonatate (Tessalon Perles) 100 mg capsuleIndication s:Viral URI Take 1 Capsule (100 mg) by mouth 3 times daily if needed for Cough. 30 Capsule 01/10/20 24 Active SUMAtriptan (IMITREX) 25 mg tabletIndications :Migraine without aura and with status migrainosus, not [...] dizzy spell Active propranoloL (INDERAL) 20 mg tabletIndications :Other migraine without status migrainosus, not intractable Take 1 Tablet (20 mg) by mouth two times daily. 60 Tablet 3 11/12/20 24 Active buPROPion 150 mg Extended-Release tabletIndications :Depression, unspecified depression type,Attention deficit hyperactivity disorder (ADHD), predominantly inattentive type Take 1 Tablet (150 mg) by mouth once daily in the morning. 90 Tablet 03/15/20 25 Active hydrOXYzine HCL 25 mg tabletIndications :ELYSSA (generalized anxiety disorder) TAKE ONE TABLET BY MOUTH ONCE EVERY DAY . 90 Tablet 03/15/20 25 Active FLUoxetine 40 mg capsuleIndication s:ELYSSA (generalized anxiety disorder),Depress ion, unspecified depression type Take 1 Capsule (40 mg) by mouth once daily in the morning. 90 Capsule 03/15/20 25 Active dextroamphetamine CONTROLLED RELEASE (Dexedrine) 10 mg capsuleIndication s:Attention deficit hyperactivity disorder (ADHD), predominantly inattentive type Take 2 Capsules (20 mg) by mouth once daily. 60 Capsule 04/14/20 25 025 Active dextroamphetamine CONTROLLED RELEASE (Dexedrine) 10 mg capsuleIndication s:Attention deficit hyperactivity disorder (ADHD), predominantly inattentive type Take 2 Capsules (20 mg) by mouth once daily. 60 Capsule 05/14/20 25 Active dextroamphetamine CONTROLLED RELEASE (Dexedrine) 10 mg capsuleIndication s:Attention deficit hyperactivity disorder (ADHD), predominantly inattentive type Take 2 Capsules (20 mg) by mouth once daily. 60 Capsule 03/16/20 25 Active codeine-guaiFENes in 10-100 mg/5 mL liquidIndications :Acute cough Take 5 mL by mouth at bedtime if needed for Cough. 100 mL 03/26/20 25 Active dextroamphetamine -amphetamine (Adderall XR) 20 mg Extended-Release capsule Take 20 mg by mouth once daily in the morning. 025 Discontin ued(*Kesha ent states no longer taking) dextroamphetamine CONTROLLED RELEASE (Dexedrine) 10 mg capsuleIndication s:Attention deficit hyperactivity disorder (ADHD), predominantly inattentive type Take 2 Capsules (20 mg) by mouth once daily. 60 Capsule 03/15/20 25 025 Discontin ued(*Medi cation adjustmen t) Active Problems Problem Noted Date Diagnosed Date [...] Encounters Date Type Department Care Team Description 04/14/2025 2:40 PM CDT Office Visit [facility] [address] [place] [address] Bonifacio Anthony MD Hospital F/U 04/14/2025 Travel 04/10/2025 Travel 04/09/2025 Telephone [facility] [address] [place] [address] Kim Patel NP Refill Request (dextroamphetamine CONTROLLED RELEASE (Dexedrine) 10 mg capsule ) 03/26/2025 9:15 AM CDT Office Visit [facility] [address] [place] [address] Alfred Pritchett MD Abdominal Pain (Upper left abdominal pain); Results (Go over ultrasound results); Cough (2.5 weeks of coughing - tessalon didn't help/COVID-19 testing negative x3) 03/26/2025 Travel 03/17/2025 Telephone [facility] [address] [facility] [place] [address] Alfred Pritchett MD Results (Ultrasound results) 03/16/2025 3:15 PM CDT Ancillary Procedure [address] [address] 03/15/2025 3:15 PM CDT Office Visit [address] [address] Kim Patel NP Follow Up; Medication Management 03/15/[address] [address] Kim Patel, GUS Medication Management (dextroamphetamine ) 03/15/2025 Travel 03/05/2025 12:40 PM CDT Office Visit [address] [address] Alfred Pritchett MD Lump (Lump left side of rib area, under breast/Pain x 2 days) 03/05/2025 Travel 02/04/[address] [address] Kim Patel, GUS Refill Request (Bupropion, Fluoxetine) 01/19/2025 8:55 AM MUD ENGINEER Office Visit [address] [address] Cathie Cohn, DO Ear Problem (Bilateral ear pain - pressure x1 week) 01/19/2025 Travel from Last 3 Months Immunizations Immunization Administration Dates Next Due AMB Influenza, IIV3 (Age >=3 years)(Flu Clinic Only) 09/06/2011,09/20/2008 AMB Influenza, IIV4 PF (=>6 mos Flulaval,Fluzone Fluarix)(Flu Clinic Only) 09/06/2016,08/13/2014 COVID-19 vaccine (medidametrics 30mcg/0.3mL) 12YO+ BIVALENT PF, MDV 09/19/2022 DTaP 03/19/2006 [id number] (Pediarix) 06/15/2005,04/13/2005,0 02/13/2005 DTaP-IPV (Kinrix) 12/20/2009 HIB PRP-OMP (PedvaxHIB) 03/19/2006,04/13/2005, HPV 9 (Gardasil 9) 06/27/2017,12/07/2016 Hepatitis A (Peds) 08/11/2018,02/03/2018 Influenza A (H1N1), Inactiva shwetha (Age >=3 Years) 02/01/2010,12/20/2009 Influenza, IIV3 (Age 6-35 mos) 09/06/2011,2004,09/11/2005 Influenza, IIV3 (Age >=3 years) 12/09/2013,08/22,08/08/2009 Influenza, IIV4 08/22/2022, 0,10/28/2019,02/09,02/03/2018,08/31/2015 MENINGOCOCCAL VACCINE 2 VIAL 2MO-55YO (MENVEO) 01/02/2021,06/27/2017,12/07/2016 [...] Sex Assigned at Female 12/02/2021 8:02 PM MUD ENGINEER Legal Sex Female 7:07 AM MUD ENGINEER Gender Identity Female 12/02/2021 8:02 PM MUD ENGINEER Sexual Orientation Lesbian or Seaman 12/02/2021 8: 02 PM MUD ENGINEER Obstetrics History Para Term AB IAB SAB Ectopic Multiple Livin g Live Births 0 0 0 0 0 0 0 0 0 0 0 Last Filed Vital Signs Vital Sign Reading Time Taken Comments Blood Pressure 138/84 04/14/2025 2:35 PM CDT Pulse 70 04/14/2025 2:35 PM CDT Temperature 37.2 C (98.9 F) 04/14/2025 2:35 PM CDT Respiratory Rate 18 03/19/2024 2:57 PM CDT Oxygen Saturation 100% 04/14/2025 2:35 PM CDT Inhaled Oxygen Concentration - - Weight 106.6 kg (235 lb) 03/26/2025 9:19 AM CDT Height 156.2 cm (5' 1.5) 03/26/2025 9:19 AM CDT Body Mass Index 43.69 03/26/2025 9:19 AM CDT Plan of Treatment Upcoming Encounters Date Type Department Care Team (Late st Contact Info) Description 04/20/2025 2:00 PM CDT Office Visit [facility] [place] [address] Yuliya Leyva MD [address] [place] [address] 06/09/2025 3:15 PM CDT Office Visit [facility] [address] [place] [address] Kim Patel, GUS [address] [facility] [address] Health Maintenance Due Date Last Done Comments [...] MD @ 03/16/2025 10:22:12 PM (Electronically Signed) Alfred Pritchett MD US Final Resu lt * LC HCV ANTIBODY RFX TO QUANT PCR (02/22/2023 3:37 PM CDT) HCV Ab Non Reactive Non Reactive 02/26/2023 10:06 PM CDT [facility] ([facility]) Blood BLOOD SPECIMEN / Unknown Venipuncture / Unknown 02/22/2023 3:37 PM CDT 02/22/2023 3:39 PM CDT [facility]OTERIC TESTING ([facility]) - 02/26/2023 10:06 PM CDT Performed at: [address] [place] [id number] Market Relationship Manager: Kwabena France MD, Phone: [phone] us Alfred Pritchett MD LABORATORY Final Resu lt [facility] ([facility]) [facility] [place] [address], * LC HIV-1/O/2, 4TH GENERATION (02/22/2023 3:37 PM CDT) Pathologist [facility] HIV Scr 4th Gen Non Reactive Non Reactive 02/26/2023 4:07 AM CDT [facility] ([facility]) Comment: HIV Negative HIV-1/HIV-2 antibodies and HIV-1 p24 antigen were NOT detected. There is no laboratory evidence of HIV infection. Blood BLOOD SPECIMEN / Unknown Venipuncture / Unknown 02/22/2023 3:37 PM CDT 02/22/2023 3:39 PM CDT [facility]OTERIC TESTING ([facility]) - 02/26/2023 4:07 AM CDT Performed at: [address] [place] [id number] Market Relationship Manager: Kwabena France MD, Phone: [phone] us Alfred Pritchett MD LABORATORY Final Resu lt [facility] ([facility]) [facility] [place] [address], [place] from Last 3 Months or Most Recently Relevant to Health Maintenance Insurance [facility] NONPROFIT INSURANCE TRUST WC [employer] NON-XCEL EMP [id number] [place] [address] Care Teams Infrastructure Software Engineer Relationship Specialty Start Date End Date Alfred Pritchett MD [address] [place] [address] PCP - General 04/19/06
--- NOTE | 2025-04-14 16:03 | CRLHL7_ITS ---
For Patients: As a result of the Century Cures Act, medical imaging exams and procedure reports are released immediately into your electronic medical record. You may view this report before your referring provider. If you have questions, please contact your health care provider. INDICATION: Left flank pain. TECHNIQUE: CT of the abdomen and pelvis without IV contrast. Coronal and sagittal reconstructions. COMPARISON: None. FINDINGS: Lower chest: Unremarkable. Liver: Unremarkable. Gallbladder and bile ducts: Unremarkable. No biliary dilatation. Spleen: Unremarkable. Pancreas: Unremarkable. Adrenal glands: Unremarkable. Kidneys, Ureters, and Bladder: There is a 2 mm obstructing stone at the left ureterovesicular junction with mild upstream left hydroureteronephrosis (series 503 image 140). No other renal stones identified. No right hydronephrosis or ureteral dilation. No bladder wall thickening. Reproductive organs: Unremarkable noncontrast appearance. GI tract/Peritoneum: No small bowel dilation. Moderate stool burden. The stool is hyperdense which may be related to previously ingested medication or enteric contrast. Negative appendix. No intraperitoneal free air or fluid. Vasculature: Abdominal aorta is normal in caliber. Lymph nodes: Mildly prominent periaortic lymph nodes are likely reactive. Abdominal Wall: Unremarkable. Bones: Unremarkable for age. IMPRESSION: 2 mm obstructing stone at the left UVJ with mild left hydroureteronephrosis. Please note that all CT scans at this facility use dose modulation, iterative reconstruction, and/or weight-based dosing when appropriate to reduce radiation dose to as low as reasonably achievable. Dictated by Rhonda Pollard MD @ 04/14/2025 6:41:44 PM (Electronically Signed)
--- NOTE | 2025-04-14 16:05 | CRLHL7_ITS ---
For Patients: As a result of the Century Cures Act, medical imaging exams and procedure reports are released immediately into your electronic medical record. You may view this report before your referring provider. If you have questions, please contact your health care provider. INDICATION: Hemoptysis. TECHNIQUE: CT of the chest acquired with 75 cc Isovue 370 IV contrast. Coronal and sagittal reconstructions. Axial MIPS. COMPARISON: None. FINDINGS: Cardiovascular structures: Normal heart size. Normal caliber thoracic aorta and central pulmonary arteries. No large central pulmonary embolism. Mediastinum and hans: Small amount of residual thymic tissue in the anterior mediastinum. No pathologically enlarged lymph nodes. No pericardial effusion. Lungs and pleura: No focal consolidation, pleural effusion, or pneumothorax. No central endobronchial lesion or significant bronchial wall thickening. No suspicious pulmonary nodules. Chest wall: No mass or adenopathy. Upper abdomen: The visualized left kidney demonstrates a delayed nephrogram. Dense stool within the colon. Remainder unremarkable. Bones: Unremarkable for age. IMPRESSION: 1. No acute findings in the chest. No findings to explain hemoptysis. 2. Incidentally noted delayed left nephrogram. Please note that all CT scans at this facility use dose modulation, iterative reconstruction, and/or weight-based dosing when appropriate to reduce radiation dose to as low as reasonably achievable. Dictated by Rhonda Pollard MD @ 04/14/2025 6:33:07 PM (Electronically Signed)
--- NOTE | 2025-04-14 16:09 | ED_ITS ---
HPI - General Adult General Chief complaint: Nausea/Vomiting Stated complaint: Vomiting blood, Kidney stone Time Seen by Provider: 04/14/25 15:28 History of Present Illness HPI narrative: Patient is a 19-year-old white female that had reportedly had a kidney stone diagnosed in [place] a few days ago. She continues to have pain in that area but describes ?whole body pain ?as well. She describes pain in her right side of her back her shoulders her legs. She has not had any rigors or chills. Her temperature is normal here. She reports having no dysuria or blood in her urine. She also reports she has had a cough and she thinks she might have vomited up some blood, but she thinks that is due to an occasional cough. In taking her history of unclear if this is from her cough for from vomiting blood. She denies any shortness of breath or chest pain. She does states she passed some gravelly like material in her urine.. Related Data Home Medications ?Medication ?Instructions ?Recorded ?Confirmed bupropion HCl 150 mg 24 hr tablet, 150 mg PO QAM 06/2104/14/25 extended release dextroamphetamine sulfate 10 mg 10 mg PO BID 06/21/23 04/14/25 capsule,extended release fluoxetine 40 mg capsule 40 mg PO DAILY 06/21/2303/19 hydroxyzine HCl 25 mg tablet 25 mg PO DAILY 06/21/23 0 04/14/25 Previous Rx's ?Medication ?Instructions ?Recorded hydrocodone 5 mg-acetaminophen 325 1 tab PO Q4-6H PRN pain #10 tabs 04/10/25 mg tablet ketorolac 10 mg tablet 10 mg PO TID 5 days #15 tabs 04/10/25 hydrocodone 5 mg-acetaminophen 325 1 tab PO Q8H PRN pa in #10 tabs 04/14/25 mg tablet ondansetron HCl 4 mg tablet 4 mg PO Q8-12H PRN nausea and 04/14/25 vomiting #7 tabs Allergies Allergy/AdvReac Type Severity Reaction Status Date / Time escitalopram (From Lexapro) Allergy Mild Headache Verified 04/14/25 17:34 adhesive AdvReac Mild Rash Verified 04/14/25 17:34 Review of Systems Status of ROS: Reports: 6 or more systems reviewed and unremarkable except as noted in History and below [facility] Medical History IUD complication ?T83.9XXA - Unspecified complication of genitourinary prosthetic device, implant and graft, initial encounter (ICD-10) Family History Family/Other Heart disease Stroke High blood pressure Diabetes Alcohol dependence Aunt Breast cancer High cholesterol Grandmother Ovarian cancer High blood pressure High cholesterol Mother High cholesterol FH: mental illness Alcohol dependence Drug dependence Father Alcohol dependence Drug dependence Social History What is your current living situation?: I presently have a place to live Problems where you live: no known problems In the past 12 months, utilities in danger of being shut off: no In past 12 months, lack of transportation kept you from medical appts, meetings, work, or getting things needed for daily living: no In the past 12 mos, have been you worried that your food would run out before you had money to buy more?: never true In the past 12 mos, the food you bought just didn't last and you didn't have money to buy more?: never true Smoking Status: Never smoker Do you use any of these nicotine containing products: None Second hand tobacco smoke exposure: No How often do you have a drink containing alcohol: never AUDIT-C Alcohol total score: 0 Non-prescribed substance use: denies use How often does anyone, including family, friends and others, physically hurt you : never How often does anyone, including family, friends and others, insult or talk down to you: never How often does anyone, including family, friends and others, threaten you with harm: never How often does anyone, including family, friends and others, scream or curse at you: never service: No Exam Narrative: Exam Narrative: Objective: Vital signs are within normal limits patient appears in no apparent distress she is texting on her phone BMI is quite elevated at 43.3 Alert orient x3, no cyanosis no accessory muscles of respiration used HEENT is unremarkable no facial asymmetry, neck is supple Chest is clear no rales or wheezing Patient has the pain to light touch in her back. Consistent with a Mercedes sign. The patient's extremities are within normal limits no edema Good peripheral perfusion noted Lungs are clear. Const: Vital Signs, click to edit/add: Vital Signs - 24 hr 04/14/25 15:33 04/14/25 16:59 04/14/25 17:00 Temperature 97.0 F L Pulse Rate Pulse Rate [Pulse Oximeter] 74 Respiratory Rate 20 Blood Pressure Blood Pressure [Ri ght Upper Arm] 140/81 H Pulse Oximetry 98 99 99 Oxygen Delivery Me thod Room Air 04/14/25 17:10 04/14/25 17:15 04/14/25 17:20 Temperature Pulse Rate 66 Pulse Rate [Pulse Oximeter] Respiratory Rate Blood Pressure Blood Pressure [Ri ght Upper Arm] Pulse Oximetry 99 99 100 Oxygen Delivery Me thod 04/14/25 17:30 04/14/25 17:52 04/14/25 18:00 Temperature Pulse Rate 78 69 Pulse Rate [Pulse Oximeter] Respiratory Rate Blood Pressure Blood Pressure [Ri ght Upper Arm] Pulse Oximetry 99 100 99 Oxygen Delivery Me thod 04/14/25 18:15 04/14/25 18:16 04/14/25 18:21 Temperature Pulse Rate 76 72 71 Pulse Rate [Pulse Oximeter] Respiratory Rate Blood Pressure 123/76 127/77 Blood Pressure [Ri ght Upper Arm] Pulse Oximetry 98 97 98 Oxygen Delivery Me thod 04/14/25 18:30 04/14/25 18:41 04/14/25 18:45 Temperature Pulse Rate 71 77 87 Pulse Rate [Pulse Oximeter] Respiratory Rate Blood Pressure 129/83 Blood Pressure [Ri ght Upper Arm] Pulse Oximetry 99 98 97 Oxygen Delivery Me thod 04/14/25 19:00 04/14/25 19:01 Temperature Pulse Rate 73 85 Pulse Rate [Pulse Oximeter] Respiratory Rate Blood Pressure 128/80 Blood Pressure [Ri ght Upper Arm] Pulse Oximetry 97 97 Oxygen Delivery Me thod Course Vital Signs Vital signs: Initial Vital Signs Temperature 97.0 F L 04/14/25 15:33 Temperature Source Temporal Artery Scan 04/14/25 15:33 Pulse Rate 74 04/14/25 15:33 Respiratory Rate 20 04/14/25 15:33 Blood Pressure 140/81 H 04/14/25 15:33 Blood Pressure Mean 100 04/14/25 15:33 Pulse Oximetry 98 04/14/25 15:33 Oxygen Delivery Method Room Air 04/14/25 15:33 Vital Signs Temperature 97.0 F L 04/14/25 15:33 Pulse Rate 74 04/14/25 15:33 Respiratory Rate 20 04/14/25 15:33 Blood Pressure 140/81 H 04/14/25 15:33 Pulse Oximetry 98 04/14/25 15:33 Oxygen Delivery Method Room Air 04/14/25 15:33 Temperature 97.0 F L 04/14/25 15:33 Pulse Rate 85 04/14/25 19:01 Respiratory Rate 20 04/14/25 15:33 Blood Pressure 128/80 04/14/25 19:01 Pulse Oximetry 97 04/14/25 19:01 Oxygen Delivery Method Room Air 04/14/25 15:33 Medications Administered Medications: Discontinued Medications Generic Name Dose Route Start Last Admin Trade Name Freq PRN Reason Stop Dose Admin Sodium Chloride 1,000 mls @ 6,000 mls/hr 04/14/25 16:15 04/14/25 18:24 0.9 % Sodium Chloride 1000 Ml IV 04/14/25 16:24 Infused .Q10M XIOMY Infusion Lorazepam 1 mg 04/14/25 16:03 04/14/25 16:27 Lorazepam 2 Mg/Ml Inj IVP 04/14/25 16:04 1 mg ONCE ONE Administration Morphine Sulfate 2 mg 04/14/25 16:03 04/14/25 16:27 Morphine 4 Mg/Ml Inj IVP 04/14/25 16:04 2 mg ONCE ONE Administration Ondansetron HCl 4 mg 04/14/25 16:13 04/14/25 16:43 Ondansetron 2 Mg/Ml Inj IVP 04/14/25 16:14 4 mg ONCE ONE Administration Pantoprazole Sodium 40 mg 04/14/25 16:13 04/14/25 16:44 Pantoprazole Sodium 40 Mg Inj IVP 04/14/25 16:14 40 mg ONCE ONE Administration Medical Decision Making MDM Narrative Medical decision making narrative: 19-year-old female with a history of left kidney stone with persistent pain in her left flank, but also ?whole body? pain. The patient also reports that she vomit secondary to coughing but then thinks she might have vomited up some blood. And has not occurred in the ER here. Will give her some Protonix, also some Zofran. IV fluid. Will check a CT scan with IV contrast of her chest , and an unenhanced CT scan of her abdomen and pelvis. Will see if there is any remnant stone remaining. Check a urinalysis as well as labs. Disposition pending findings. Will give her a small dose of morphine 2 mg IV as well as Zofran and Ativan. Addendum 4:44 p.m.: The patient will get the above-mentioned lab studies, CT scan as mention. Treatment based on her findings. Had minimal I think Protonix and Zofran to be indicated and careful monitoring and follow up with regular doctor. Addendum 7:08 p.m. the patient has a 2 mm stone at the left UVJ I think that is causing her symptoms. She has a negative chest CT no pulmonary embolus or other abnormality. She has not had any vomiting here. I think some Zofran at home Prilosec would be appropriate as well as some Riley for pain control. Given the small size of the stone in the location it should pass drink lots of fluid. Recheck with regular doctor next 2-3 days. Recommend the Prilosec over-the- counter 2 to help her stomach in case her some irritation in the stomach. Lab Data Labs: Lab Results 04/14/25 04/14/25 Range/Units 16:15 16:25 WBC 8.28 (4.50-11.00) K/uL RBC 5.06 (4.00-5.20) m/uL Hgb 14.3 (12.0-16.0) gm/dL Hct 43.1 (33.0-51.0) % MCV 85 (80-100) fL MCH 28 (26-34) pg MCHC 33 (32-36) gm/dL RDW Coeff of Martine 11.8 (11.5-15.5) % Plt Count 329 (140-440) K/uL Neut % (Auto) 85.4 H (42.0-72.0) % Lymph % (Auto) 10.4 L (20-44) % [place] % (Auto) 3.6 (0.0-11.0) % Eos % (Auto) 0.1 (0.0-7.0) % Baso % (Auto) 0.4 (0.0-3.0) % Neut # (Auto) 7.10 H (1.7-7.0) K/uL Lymph # (Auto) 0.90 (0.90-2.90) K/uL [place] # (Auto) 0.30 (0.00-0.90) K/UL Eos # (Auto) 0.01 (0.00-0.50) K/uL Baso # (Auto) 0.03 (0.00-0.30) K/uL Abs Immat Gran (auto) 0.01 (0.00-0.30) K/uL Imm/Tot Granulo (auto) 0.1 % Sodium 139 (135-149) mmol/L Potassium 3.5 L (3.6-5.1) mmol/L Chloride 100 (96-114) mmol/L Carbon Dioxide 26 (20-32) mmol/L Anion Gap 13 (7-15) mEq/L BUN 11 (5-24) mg/dL Creatinine 1.2 (0.5-1.5) mg/dL Estimated Creat Clear 56.43 Estimated GFR 66 ml/min Glucose 93 (60-115) mg/dL Calcium 9.5 (8.4-10.6) mg/dL Total Bilirubin 0.6 (0.1-1.5) mg/dL Direct Bilirubin 0.4 (0.0-0.5) mg/dL AST 31 (12-35) U/L ALT 23 (4-35) U/L Alkaline Phosphatase 136 (40-150) U/L C-Reactive Protein 3.2 H (0.5-1.0) mg/dL Total Protein 8.0 (6.0-8.3) g/dL Albumin 4.7 (3.3-5.0) g/dL HCG, Qual Negative (Negative) Urine Color Yellow (Yellow) Urine Appearance Cloudy A (Clear) Urine pH 6.0 (5.0-8.5) Ur Specific Ledbetter >= 1.030 (1.000-1.030) Urine Protein 2+ A (Negative) Urine Glucose (UA) Negative (Negative) Urine Ketones 4+ A (Negative) Urine Blood Negative (Negative) Urine Nitrite Negative (Negative) Urine Bilirubin 2+ A (Negative) Urine Urobilinogen 1.0 (0.2-1.0) Ur Leukocyte Esterase Negative (Negative) Urine RBC 0-2 (0-2) Urine WBC 0-2 (0-5) Ur Squamous Epith Cells Few (None-Few) Calcium Oxalate Crystal Moderate A (None) Urine Bacteria Few A (None) Discharge Plan Discharge Clinical Impression: Acute flank pain, Cough, Vomiting, Kidney stone on left side Patient Disposition: Home w/ Parent or Adult Condition: Improved Additional Instructions: Light activity, push fluids, Zofran as needed for nausea. Recommend you take Prilosec [id number] 20 mg daily for the next couple of weeks. Update your regular doctor in follow-up within the next 2-3 days. Riley as needed for pain Activity Level: Light activity Discharge Diet: Regular Prescriptions: New ondansetron HCl 4 mg tablet 4 mg PO Q8-12H PRN (Reason: nausea and vomiting) Qty: 7 0RF hydrocodone-acetaminophen 5-325 mg tablet 1 tab PO Q8H PRN (Reason: pain) Qty: 10 0RF No Action dextroamphetamine sulfate 10 mg capsule, extended release 10 mg PO BID hydroxyzine HCl 25 mg tablet 25 mg PO DAILY bupropion HCl 150 mg tablet extended release 24 hr 150 mg PO QAM fluoxetine 40 mg capsule 40 mg PO DAILY hydrocodone-acetaminophen 5-325 mg tablet 1 tab PO Q4-6H PRN (Reason: pain) Qty: 10 0RF ketorolac 10 mg tablet 10 mg PO TID 5 Days Qty: 15 0RF Follow Up/Referrals: Alfred Pritchett MD [Primary Care Provider, Family Practice] Stand Alone Forms: [employer] Info Instructions
[2025-04-14 16:25] LABS: Appearance Urine Cloudy (Clear); Bilirubin Urine 2+ (Negative); Blood Urine Negative (Negative); Color Urine Yellow (Yellow); Glucose Urine Negative (Negative); Ketones Urine 4+ (Negative); Leukocyte Esterase Urine Negative (Negative); Nitrite Urine Negative (Negative); Protein Urine 2+ (Negative); Specific Gravity Urine >= 1.030 (1.000-1.030)
[2025-04-14] MEDS: LORazepam 2 MG/ML inj 1 MG IVP (16:27)
[2025-04-14] MEDS: MORPHINE 4 MG/ML INJ 2 MG IVP (16:27)
[2025-04-14] MEDS: 0.9 % SODIUM CHLORIDE 1000 ml 1,000 ML 6000 ML IV (16:28)
[2025-04-14 16:43] LABS: Basophils Absolute Auto 0.03 K/uL (0.00-0.30); Basophils Percent Auto 0.4 % (0.0-3.0); Eosinophils Absolute Auto 0.01 K/uL (0.00-0.50); Eosinophils Percent Auto 0.1 % (0.0-7.0); Hematocrit 43.1 % (33.0-51.0); Hemoglobin* 14.3 gm/dL (12.0-16.0); Immature Granulocytes Abs Auto 0.01 K/uL (0.00-0.30); Immature Granulocytes Pct Auto 0.1 %; Lymphocytes Percent Auto 10.4 % (20-44); Mean Corpuscular HGB Conc 33 gm/dL (32-36); Mean Corpuscular Hemoglobin 28 pg (26-34); Mean Corpuscular Volume 85 fL (80-100); Monocytes Percent Auto 3.6 % (0.0-11.0); Neutrophils Percent Auto 85.4 % (42.0-72.0); Platelet Count* 329 K/uL (140-440); RDW Coefficient of Variation % 11.8 % (11.5-15.5); Red Blood Count 5.06 m/uL (4.00-5.20); White Blood Count* 8.28 K/uL (4.50-11.00)
[2025-04-14] MEDS: ONDANSETRON 2 MG/ML inj 4 MG IVP (16:43)
[2025-04-14] MEDS: PANTOPRAZOLE SODIUM 40 MG INJ IVP (16:44)
[2025-04-14 16:49] LABS: Slide Review Reflex No
[2025-04-14 16:52] LABS: Bacteria Urine Few; Calcium Oxalate Crystals Urine Moderate; RBC Urine 0-2 (0-2); Squamous Epithelial Cell Urine Few (None-Few); WBC Urine 0-2 (0-5)
[2025-04-14 16:55] LABS: Albumin* 4.7 g/dL (3.3-5.0); Chloride* 100 mmol/L (96-114); Sodium* 139 mmol/L (135-149)
[2025-04-14 16:56] LABS: Potassium* 3.5 mmol/L (3.6-5.1)
[2025-04-14 16:58] LABS: Alanine Aminotransferase* 23 U/L (4-35); Alkaline Phosphatase* 136 U/L (40-150); Anion Gap 13 mEq/L (7-15); Aspartate Amino Transferase* 31 U/L (12-35); Bilirubin Direct* 0.4 mg/dL (0.0-0.5); Bilirubin Total* 0.6 mg/dL (0.1-1.5); Blood Urea Nitrogen* 11 mg/dL (5-24); Carbon Dioxide* 26 mmol/L (20-32); Creatinine* 1.2 mg/dL (0.5-1.5); Est. Creatinine Clearance* 56.43; Estimated Glomerular Filt Rate 66 ml/min
[2025-04-14 16:59] LABS: Calcium* 9.5 mg/dL (8.4-10.6); Glucose* 93 mg/dL (60-115)
[2025-04-14 17:01] LABS: C Reactive Protein* 3.2 mg/dL (0.5-1.0)
[2025-04-14 17:20] LABS: HCG Qualitative Serum* Negative (Negative)
--- OUTSIDE RECORDS SUMMARY | 2025-04-14 17:58 | XMS_ITS | Clinical Summary ---
Author Organization [facility] Address [address] , [address] [place] [address] Phone Care Team Providers Care Collar Setter Name Role Phone Colette THEODORE, Meramaged Granger [phone] Conditions or Problems Problem Name Problem Code Onset Date Status Entry Date Provider Comment Standard Description Annotate Migraine 35336174 (SNOMED CT) Active Marquis Mckeon MD Migraine Headache, post traumatic 58135432 (SNOMED CT) Active Marquis Mckeon MD Posttraumatic headache Dizziness 855118767 (SNOMED CT) Active Marquis Mckeon MD Dizziness Medications Medication Instructions Start Date Stop Date Generic Name ND Provider PROPRANOLOL HCL 20 MG TABS 1 tablet by mouth twice a day 3 propranolol [id number] Marquis Mckeon MD RIZATRIPTAN BENZOATE 10 MG TABS TAKE ONE TABLET BY MOUTH AT ONSET OF MIGRAINE AND EVERY 2 HOURS NEEDED. MAX 2 TABLETS IN 24 HOURS 3 rizatriptan [id number] Marquis Mckeon MD MECLIZINE HCL 25 MG TABS 1 tablet by mouth three times a day as directed For dizziness 3 meclizine [id number] Marquis Mckeon MD Medications Administered No information [...] Procedures Code Procedure Name Date Entry Date [facility]-[id number] Documentation of current medicatio ns [facility]-[id number] Documentation of current medicatio ns [facility]-[id number] Documentation of current medicatio ns [facility]-[id number] Documentation of current medicatio ns [id number] MRI-Brain W/WO [id number] MRA-Neck W/WO [id number] MRA-Head W/O ORDERS Other Referral Vital Signs No information available. Immunizations No information available. Advance Directives No information available.
== END 2025-04-14 19:21 | disposition home or self-care (01) ==
LOC: ED 17:57
PROVIDERS: Emergency Provider Family Medicine; PCP Family Medicine
DX: N20.0 Calculus of kidney (principal); R10.9 Unspecified abdominal pain; R05.9 Cough, unspecified; R11.10 Vomiting, unspecified
CPT/HCPCS: 36415; 71260; 74176; 80048; 80076; 81001; 84703; 85025; 86140; 87086; 96361; 96374; 96375; 99284; 99285; J2060; J2270; J2405; J2470; J7030; Q9967

== ENCOUNTER 2025-04-15 17:09 | Observation (INO) | payer BC, MEDICAID, SELFPAY ==
[2025-04-15] VITALS (9 sets, daily range): BP systolic 136–154; BP diastolic 82–87; PULSE 77–85; RESP 16–22; TEMP 36.7–37.3; O2SAT 98–100; BMI 42.8; BMI 43.2
--- OUTSIDE RECORDS SUMMARY | 2025-04-15 17:11 | XMS_ITS | Clinical Summary ---
Author Organization [facility] Address [address] , [address] [place] [address] Phone Care Team Providers Care Grinder Hardboard Name Role Phone Colette THEODORE, Meramaged Granger [phone] Conditions or Problems Problem Name Problem Code Onset Date Status Entry Date Provider Comment Standard Description Annotate Migraine 57084950 (SNOMED CT) Active Marquis Mckeon MD Migraine Headache, post traumatic 66519363 (SNOMED CT) Active Marquis Mckeon MD Posttraumatic headache Dizziness 696182853 (SNOMED CT) Active Marquis Mckeon MD Dizziness Medications Medication Instructions Start Date Stop Date Generic Name ND Provider PROPRANOLOL HCL 20 MG TABS 1 tablet by mouth twice a day 3 propranolol [id number] Marquis Mckeon MD RIZATRIPTAN BENZOATE 10 MG TABS TAKE ONE TABLET BY MOUTH AT ONSET OF MIGRAINE AND EVERY 2 HOURS NEEDED. MAX 2 TABLETS IN 24 HOURS 3 rizatriptan 03392620810 Marquis Mckeon MD MECLIZINE HCL 25 MG TABS 1 tablet by mouth three times a day as directed For dizziness 3 meclizine [id number] Marquis Mckeon MD Medications Administered No information [...] Procedures Code Procedure Name Date Entry Date [facility]-[id number] Documentation of current medicatio ns [facility]-[id number] Documentation of current medicatio ns [facility]-[id number] Documentation of current medicatio ns [facility]-[id number] Documentation of current medicatio ns [id number] MRI-Brain W/WO [id number] MRA-Neck W/WO [id number] MRA-Head W/O ORDERS Other Referral Vital Signs No information available. Immunizations No information available. Advance Directives No information available.
--- OUTSIDE RECORDS SUMMARY | 2025-04-15 17:11 | XMS_ITS | Clinical Summary ---
Author Organization [facility] Address [address] [place] [address] Care Team Providers Care Human Resources Benefits Administrator Name Role Phone Alfred Pritchett MD Primary Care Provider [phone] Allergies Active Allergy Reactions Criticality Noted Date [...] Discontin ued(*Kesha ent states no longer taking) Active Problems Problem Noted Date Diagnosed Date [...] Encounters Date Type Department Care Team Description 04/15/2025 Nurse Triage [facility] [address] [place] [address] Alfred Pritchett MD Vomiting 04/14/2025 2:40 PM CDT Office Visit [facility] [address] [place] [address] Bonifacio Anthony MD Hospital F/U 04/14/2025 Travel 04/10/2025 Travel 04/09/2025 Telephone [facility] [address] [place] [address] Kim Patel NP Refill Request (dextroamphetamine CONTROLLED RELEASE (Dexedrine) 10 mg capsule ) 03/26/2025 9:15 AM CDT Office Visit [facility] [address] [place] [address] Alfred Pritchett MD Abdominal Pain (Upper left abdominal pain); Results (Go over ultrasound results); Cough (2.5 weeks of coughing - tessalon didn't help/COVID-19 testing negative x3) 03/26/2025 Travel 03/17/2025 Telephone [facility] [address] [place] [address] Alfred Pritchett MD Results (Ultrasound results) 03/16/2025 3:15 PM CDT Ancillary Procedure [facility] [address] [place] [address] 03/15/2025 3:15 PM CDT Office Visit [facility] [address] [place] [address] Kim Patel, GUS Follow Up; Medication Management 03/15/2025 Telephone [facility] [address] [place] [address] Kim Patel, GUS Medication Management (dextroamphetamine ) 03/15/2025 Travel 03/05/2025 12:40 PM CDT Office Visit [facility] [address] [place] [address] Alfred Pritchett MD Lump (Lump left side of rib area, under breast/Pain x 2 days) 03/05/2025 Travel 02/04/[address] [address] Kim Patel, GUS Refill Request (Bupropion, Fluoxetine) 01/19/2025 8:55 AM CANTEEN ATTENDANT Office Visit [facility] [address] [place] [address] Cathie Cohn, Ear Problem (Bilateral ear pain - pressure x1 week) 01/19/2025 Travel from Last 3 Months Immunizations Immunization Administration Dates Next Due AMB Influenza, IIV3 (Age >=3 years)(Flu Clinic Only) 09/06/2011,09/20/2008 AMB Influenza, IIV4 PF (=>6 mos Flulaval,Fluzone Fluarix)(Flu Clinic Only) 09/06/2016,08/13/2014 COVID-19 vaccine (Cint-RB-Doors NTArticleAlley 30mcg/0.3mL) 12YO+ BIVALENT PF, MDV 09/19/2022 DTaP 03/19/2006 [id number] (Pediarix) 06/15/2005,04/13/2005,0 02/13/2005 DTaP-IPV (Kinrix) 12/20/2009 HIB [...] Sex Assigned at Female 12/02/2021 8:02 PM CANTEEN ATTENDANT Legal Sex Female 7:07 AM CANTEEN ATTENDANT Gender Identity Female 12/02/2021 8:02 PM CANTEEN ATTENDANT Sexual Orientation Lesbian or Seaman 12/02/2021 8: 02 PM CANTEEN ATTENDANT Obstetrics History Para Term AB IAB SAB [...] Description 04/20/2025 2:00 PM CDT Office Visit [facility] [address] [place] [address] Yuliya Leyva MD [address] [place] [address] 06/09/2025 3:15 PM CDT Office Visit [facility] [address] [place] [address] Kim Patel NP [address] [place] [address] Health Maintenance Due Date Last Done Comments [...] Reactive Non Reactive 02/26/2023 10:06 PM CDT [facility] ([facility]) Blood BLOOD SPECIMEN / Unknown Venipuncture / Unknown 02/22/2023 3:37 PM CDT 02/22/2023 3:39 PM CDT Narrative [facility] ([facility]) - 02/26/2023 10:06 PM CDT Performed at: [address] [place] [id number] Store Operations Manager: Kwabena France MD, Phone: [phone] us Alfred Pritchett MD LABORATORY Final Resu lt [facility] ([facility]) [address] [place] [address], [place] * LC HIV-1/O/2, 4TH GENERATION (02/22/2023 3:37 PM CDT) Pathologist [facility] HIV Scr 4th Gen Non Reactive Non Reactive 02/26/2023 4:07 AM CDT [facility] ([facility]) Comment: HIV Negative HIV-1/HIV-2 antibodies and HIV-1 p24 antigen were NOT detected. There is no laboratory evidence of HIV infection. Blood BLOOD SPECIMEN / Unknown Venipuncture / Unknown 02/22/2023 3:37 PM CDT 02/22/2023 3:39 PM CDT Narrative [facility] ([facility]) - 02/26/2023 4:07 AM CDT Performed at: [address] [place] [address] [employer] [place], [place] [id number] Store Operations Manager: Kwabena France MD, Phone: [phone] us Alfred Pritchett MD LABORATORY Final Resu lt [facility] ([facility]) [facility] [place] [address], from Last 3 Months or Most Recently Relevant to Health Maintenance Insurance [facility] NONPROFIT INSURANCE TRUST WC [employer] NON-XCEL EMP [id number] [place] [address] Care Teams Human Resources Benefits Administrator Relationship Specialty Start Date End Date Alfred Pritchett MD [address] [place] [address] PCP - General 04/19/06
--- NOTE | 2025-04-15 17:25 | ED_ITS ---
HPI - General Adult General Date Seen: 04/15/25 Chief complaint: Nausea/Vomiting Stated complaint: vomiting blood Time Seen by Provider: 04/15/25 17:25 History of Present Illness HPI narrative: 19-year-old female with a past medical history migraine headaches, GERD, polycystic ovarian syndrome, elevated BMI, kidney stones, depression/anxiety, ADHD who presents to the ER today with repetitive vomiting and hematemesis. History is somewhat limited and difficult because when questions, she typically says ?I do not know! In an irritated tone of voice but then when I follow-up she is able to clarify. She had actually is able to provide more detailed history than she is initially willing to do. History from the patient is that this is her 7th ER visit this week for abdominal pain and vomiting. She apparently developed left-sided pain and vomiting last Saturday, 8 days ago while she was visiting her aunt in [place]. She was seen at the ER in [facility] and diagnosed with a 2 mm kidney stone during that 1st visit. It sounds like she was given prescriptions for tramadol and ibuprofen and they were recommending outpatient management. She apparently had 2 repeat ER visits to the ER in [place] because of uncontrolled vomiting. During her 3rd visit there they recommended hospitalization but she declined and wanted to go home. Since arriving back here in [place] she has had ongoing symptoms of fairly persistent nausea, repetitive bouts of vomiting every day, and generalized abdominal pain. In addition to that she feels like her vomit his changed color and now has reddish flecks of blood in it for the past couple of days. She is having generalized abdominal pain from retching. She also has chest burning. She is not having a fever. She has not had any bowel movement for a couple of weeks. She says ?everything? hurts when she urinates. No other definite urinary symptoms such as hematuria or urgency/frequency. Patient says she was seen in the ER yesterday and twice over the weekend for the similar symptoms. Since she woke up today around noon she has had ongoing nausea and repetitive episodes of vomiting. She notes that her vomit is mostly yellow but also has some small brown flecks in it. She is having diffuse abdominal pain and chest pain. No definite fevers. No bowel movements today and has not had any for a week or 2. She says everything hurts when she urinates. It sounds like she is making urine. Is not otherwise bloody or cloudy. No fever. Per ER record from 04/14/2025 she had been diagnosed with a kidney stone, at a hospital in [place], a few days ago. She continued to have pain in her kidney area but also her whole body is hurting. She did not have a fever. Labs showed a white count of 8.28, hemoglobin 14.3, platelet count 329. Differential on white count was 80 5% neutrophils. Labs showed sodium 139, potassium 3.5, chloride 100, bicarb 26, BUN 11, creatinine 1.2. Glucose 93. Bilirubin 3 with 0.6, AST 31, ALT 23, alk-phos 136. HCG negative. Urinalysis showed 0-2 RBC, 0- 2 WBC, 4+ ketones, 2+ bilirubin, negative nitrite. Negative leukocyte esterase. CT Chest IMPRESSION: 1. No acute findings in the chest. No findings to explain hemoptysis. 2. Incidentally noted delayed left nephrogram. She was given prescriptions for Zofran and hydrocodone. She was also seen 04/09, 04/10 for epigastric discomfort and vomiting. On the she received Zofran, Toradol, Dilaudid and felt better. Labs showed a white count of 9.4, hemoglobin 13.1, BUN 10, creatinine 1.4. Urinalysis was negative She had an MRI of her brain on 04/08 that was essentially negative. Related Data Home Medications ?Medication ?Instructions ?Recorded ?Confirmed bupropion HCl 150 mg 24 hr tablet, 150 mg PO QAM 06/2104/15/25 extended release dextroamphetamine sulfate 10 mg 10 mg PO BID 06/21/23 04/15/25 capsule,extended release fluoxetine 40 mg capsule 40 mg PO DAILY 06/21/2303/19 hydroxyzine HCl 25 mg tablet 25 mg PO DAILY 06/21/23 0 04/15/25 Previous Rx's ?Medication ?Instructions ?Recorded hydrocodone 5 mg-acetaminophen 325 1 tab PO Q4-6H PRN pain #10 tabs 04/10/ mg tablet ketorolac 10 mg tablet 10 mg PO TID 5 days #15 tabs 04/10/25 hydrocodone 5 mg-acetaminophen 325 1 tab PO Q8H PRN pa in #10 tabs 05/28/25 mg tablet ondansetron HCl 4 mg tablet 4 mg PO Q8-12H PRN nausea and 04/14/25 vomiting #7 tabs Allergies Allergy/AdvReac Type Severity Reaction Status Date / Time escitalopram (From Lexapro) Allergy Mild Headache Verified 04/15/25 18:20 adhesive AdvReac Mild Rash Verified 04/15/25 18:20 PFSH PFSH Medical History IUD complication ?T83.9XXA - Unspecified complication of genitourinary prosthetic device, implant and graft, initial encounter (ICD-10) Family History Family/Other Heart disease Stroke High blood pressure Diabetes Alcohol dependence Aunt Breast cancer High cholesterol Grandmother Ovarian cancer High blood pressure High cholesterol Mother High cholesterol FH: mental illness Alcohol dependence Drug dependence Father Alcohol dependence Drug dependence Social History What is your current living situation?: I presently have a place to live Problems where you live: no known problems In the past 12 months, utilities in danger of being shut off: no In past 12 months, lack of transportation kept you from medical appts, meetings, work, or getting things needed for daily living: no In the past 12 mos, have been you worried that your food would run out before you had money to buy more?: never true In the past 12 mos, the food you bought just didn't last and you didn't have money to buy more?: never true Smoking Status: Never smoker Do you use any of these nicotine containing products: None Second hand tobacco smoke exposure: No How often do you have a drink containing alcohol: never AUDIT-C Alcohol total score: 0 Non-prescribed substance use: denies use How often does anyone, including family, friends and others, physically hurt you : never How often does anyone, including family, friends and others, insult or talk down to you: never How often does anyone, including family, friends and others, threaten you with harm: never How often does anyone, including family, friends and others, scream or curse at you: never service: No Exam Narrative: Exam Narrative: Constitutional: Appears well-developed and well-nourished. Alert. Conversant, but seems irritated when I try to take a good history. Repetitively vomiting with small volume yellowish emesis.. Non toxic. HENT: Head: Atraumatic. Nose: Nose normal. Mouth/Throat: Oral mucosa is clear and moist. no trismus. Pharynx normal. Tonsils symmetric. No tonsillar enlargement, erythema, or exudate. Eyes: Conjunctivae normal. EOM normal. Pupils equal, round, and reactive to light. No scleral icterus. Neck: Normal range of motion. Neck supple. No tracheal deviation present. Cardiovascular: Normal rate, regular rhythm. No gallop. No friction rub. No murmur heard. Symmetric radial artery pulses Pulmonary/Chest: Effort normal. No stridor. No respiratory distress. No wheezes. No rales. No rhonchi . Diffuse tenderness. No gas in the soft tissue or crepitus. Abdominal: Soft. Bowel sounds normal. No distension. No mass. Diffuse tenderness. No rebound. No guarding. Overall seems exquisitely tender even to light touch and does not really seem rigid. Abdominal tenderness almost seems like a dysesthesia rather than diffuse peritoneal tenderness. Musculoskeletal: RUE: Normal range of motion. No tenderness. No deformity LUE: Normal range of motion. No tenderness. No deformity RLE: Normal range of motion. No edema. No tenderness. No deformity LLE: Normal range of motion. No edema. No tenderness. No deformity Neurological: Alert and oriented to person, place, and time. Normal strength. CN II-VII intact. No sensory deficit. GCS eye subscore is 4. GCS verbal subscore is 5. GCS motor subscore is 6. Normal coordination Skin: Skin is warm and dry. No rash noted. No pallor. Normal capillary refill. Psychiatric: Normal mood. Normal affect. Const: Vital Signs, click to edit/add: Vital Signs - 24 hr 04/15/25 17:16 04/15/25 18:27 04/15/25 18:29 Temperature 98.0 F Pulse Rate 80 Pulse Rate [Pulse Oximeter] 85 Respiratory Rate 16 Blood Pressure [Ri ght Upper Arm] 136/87 Pulse Oximetry 98 98 98 Oxygen Delivery Me thod Room Air 04/15/25 18:30 04/15/25 18:45 04/15/25 19:00 Temperature Pulse Rate 82 77 81 Pulse Rate [Pulse Oximeter] Respiratory Rate Blood Pressure [Ri ght Upper Arm] Pulse Oximetry 99 99 98 Oxygen Delivery Me thod 04/15/25 19:15 Temperature Pulse Rate 82 Pulse Rate [Pulse Oximeter] Respiratory Rate 18 Blood Pressure [Ri ght Upper Arm] Pulse Oximetry 100 Oxygen Delivery Me thod Course Course ED Course: 830-. Patient says her nausea is resolved. Belly is feeling better. Still has some burning discomfort and shortness of breath in her chest. Discussed reassuring lab workup, reassuring chest/abdomen/pelvis. She is wants to try some supportive care for presumed esophagus problems and will try p.o. challenge. Vital Signs Vital signs: Initial Vital Signs Temperature 98.0 F 04/15/25 17:16 Temperature Source Temporal Artery Scan 04/15/25 17:16 Pulse Rate 85 04/15/25 17:16 Respiratory Rate 16 04/15/25 17:16 Blood Pressure 136/87 04/15/25 17:16 Blood Pressure Mean 103 04/15/25 17:16 Blood Pressure Position Sitting 04/15/25 17:16 Pulse Oximetry 98 04/15/25 17:16 Oxygen Delivery Method Room Air 04/15/25 17:16 Vital Signs Temperature 98.0 F 04/15/25 17:16 Pulse Rate 85 04/15/25 17:16 Respiratory Rate 16 04/15/25 17:16 Blood Pressure 136/87 04/15/25 17:16 Pulse Oximetry 98 04/15/25 17:16 Oxygen Delivery Method Room Air 04/15/25 17:16 Temperature 99.2 F 04/15/25 22:38 Pulse Rate 80 04/15/25 22:38 Respiratory Rate 22 04/15/25 22:51 Blood Pressure 154/82 H 04/15/25 22:38 Pulse Oximetry 100 04/15/25 22:51 Oxygen Delivery Method Room Air 04/15/25 22:51 Medications Administered Medications: Discontinued Medications Generic Name Dose Route Start Last Admin Trade Name Freq PRN Reason Stop Dose Admin Haloperidol Lactate 2.5 mg 04/15/25 17:49 04/15/25 18:03 Haloperidol 5 Mg/Ml Inj IV 04/15/25 17:50 2.5 mg ONCE ONE Administration Sodium Chloride 1,000 mls @ 1,000 mls/hr 04/15/25 17:30 04/15/25 19:17 0.9 % Sodium Chloride 1000 Ml IV 04/15/25 18:29 Infused .Q1H XIOMY Infusion Lidocaine/Aluminum/Magnesium/Simeth 30 ml 04/15/25 20:42 04/15/25 20:53 Gi Cocktail (Visc Lido/Antacid) 30 Ml PO 04/15/25 20:43 30 ml ONCE ONE Administration Metoclopramide HCl 10 mg 04/15/25 21:37 04/15/25 22:12 Metoclopramide Hcl 5 Mg/Ml Inj IVP 04/15/25 21:38 10 mg ONCE ONE Administration Ondansetron HCl 4 mg 04/15/25 17:29 04/15/25 17:56 Ondansetron 2 Mg/Ml Inj IVP 04/15/25 17:30 4 mg ONCE ONE Administration Pantoprazole Sodium 40 mg 04/15/25 17:29 04/15/25 17:56 Pantoprazole Sodium 40 Mg Inj IVP 04/15/25 17:30 40 mg ONCE ONE Administration Medical Decision Making MDM Narrative Medical decision making narrative: 19-year-old female with a complex recent past history. She has apparently had symptoms dating back to last week. She apparently had some left-sided abdominal pain or left flank pain last Saturday or Saturday and was seen at the ER the at [facility] in [facility] and diagnosed with a 2 mm left-sided kidney stone. She was apparently discharged for outpatient management. Unclear exactly which prescriptions she received but it sounds like possibly Zofran and tramadol. She says she has been having trouble ever since that 1st visit. She had 2 or 3 more visits to the ER in [place]. Since she came back to [place] she has now had a total of 4 visits to our ER (2 over the weekend and 1 that occurred yesterday) it now developed generalized abdominal pain, chest pain, repetitive and uncontrollable vomiting . She has not had any bowel movements for at least a week, she says. She also reports that she has been vomiting blood. However in the emesis bucket she brought with her she has mostly yellow liquid with small light brown flecks that are not really consistent with blood or coffee-ground emesis. Differential here is broad. In terms of her vomiting blood, I do not see any blood actively coming out while she is here in the ER. Differential would include Carlita-Garcia tear, Boerhaave syndrome, gastritis, esophagitis, peptic ulcer disease, among other. Treated with Protonix here in the ER. She was prescribed ibuprofen for her kidney stone but has not really taken it very much because she cannot keep it down. She had not been taking a lot of NSAIDs prior to her kidney stone Also consider the possibility that the material she saw coming out is not actually blood. She is hemodynamically stable, hemoglobin is stable from yesterday. At this point no clear evidence for active upper GI bleeding. With her diffuse abdominal pain and chest pain, concern is for possible Boerhaave syndrome, or other causes of abdominal pain such as pancreatitis, diverticulitis, bowel obstruction, perforated appendicitis, intra-abdominal abscess. Although she is not really having pain localizing to left flank anymore, it is much more generalized, consider possible kidney pathology. Laboratory workup actually is fairly reassuring. White count is normal at 7.8 and similar to previous. Hemoglobin is normal at 14.0. This is also similar to yesterday and up by 1 g compared to this past weekend. I suspect this likely reflects dehydration and hemoconcentration. Liver function tests and lipase are normal. She is not having any pain localizing to the right upper quadrant. Kidney function looks good with a BUN of 9 and a creatinine of 1.2, also similar to recent. She does have mild hypokalemia which is likely due to GI losses. EKG shows no sign of arrhythmia or significant changes due to hypokalemia. Venous lactic acid is normal at 1.8. CT imaging shows no acute findings in the chest. The CT scan of her abdomen/pelvis does show the 1.8 mm stone in the distal left UVJ but no other abnormality. Patient initially felt somewhat better after receiving Zofran and fluids here in the ER but then failed p.o. challenge. Additional antiemetics ordered. Given the fact that she has had now 70 ER visits over the past week for the symptoms, and is desiring admission, I think it and observation is warranted. At this point there was no immediate surgical condition causing her vomiting. May just require supportive care and IV hydration. Consider possible endoscopy to look for esophagitis or gastritis if she is not getting better. Discussed with our hospitalist, Shakira Arreaga. Who graciously accepts for admission. Will also add on a urine drug screen in case she has been using marijuana (patient denies) to look for possible cannabis hyperemesis syndrome. Lab Data Labs: Lab Results 04/15/25 Range/Units 17:45 WBC 7.81 (4.50-11.00) K/uL RBC 5.01 (4.00-5.20) m/uL Hgb 14.0 (12.0-16.0) gm/dL Hct 43.2 (33.0-51.0) % MCV 86 (80-100) fL MCH 28 (26-34) pg MCHC 32 (32-36) gm/dL RDW Coeff of Martine 11.9 (11.5-15.5) % Plt Count 320 (140-440) K/uL Neut % (Auto) 72.0 (42.0-72.0) % Lymph % (Auto) 18.4 L (20-44) % [place] % (Auto) 7.4 (0.0-11.0) % Eos % (Auto) 0.9 (0.0-7.0) % Baso % (Auto) 0.3 (0.0-3.0) % Neut # (Auto) 5.62 (1.7-7.0) K/uL Lymph # (Auto) 1.40 (0.90-2.90) K/uL [place] # (Auto) 0.60 (0.00-0.90) K/UL Eos # (Auto) 0.07 (0.00-0.50) K/uL Baso # (Auto) 0.02 (0.00-0.30) K/uL Abs Immat Gran (auto) 0.08 (0.00-0.30) K/uL Imm/Tot Granulo (auto) 1.0 % Sodium 140 (135-149) mmol/L Potassium 3.4 L (3.6-5.1) mmol/L Chloride 99 (96-114) mmol/L Carbon Dioxide 28 (20-32) mmol/L Anion Gap 13 (7-15) mEq/L BUN 9 (5-24) mg/dL Creatinine 1.2 (0.5-1.5) mg/dL Estimated Creat Clear 56.43 Estimated GFR 66 ml/min Glucose 93 (60-115) mg/dL Lactate 1.8 (0.5-1.9) mmol/L Calcium 9.2 (8.4-10.6) mg/dL Phosphorus 2.5 (2.5-4.5) mg/dL Magnesium 1.8 (1.5-2.6) mg/dL Total Bilirubin 0.7 (0.1-1.5) mg/dL AST 34 (12-35) U/L ALT 27 (4-35) U/L Alkaline Phosphatase 130 (40-150) U/L Total Protein 7.9 (6.0-8.3) g/dL Albumin 4.6 (3.3-5.0) g/dL Lipase 69 (23-300) U/L Imaging Data CT Chest/Ab/Pelvis: Attestation: I have reviewed the pertinent imaging results. Radiologist's impression: IMPRESSION: 1. Punctate stone at the distal left ureter adjacent to the left UVJ. Proximal mild hydroureteronephrosis. 2. No acute process in the chest. ECG Data Attestation: I personally reviewed and interpreted this ECG as follows: Interpretation: Normal sinus rhythm Rate: 74 WI: 140 QRS axis: Normal axis. ST segment/T wave: No ST segment elevation or depression QTc: 448 Discharge Plan Discharge Clinical Impression: Vomiting, Dehydration, Acute hypokalemia, Abdominal pain, Chest pain, Kidney stone on left side Patient Disposition: Admitted As Observation
[2025-04-15 17:54] LABS: Lactate* 1.8 mmol/L (0.5-1.9)
[2025-04-15] MEDS: ONDANSETRON 2 MG/ML inj 4 MG IVP (17:56)
[2025-04-15] MEDS: PANTOPRAZOLE SODIUM 40 MG INJ IVP (17:56)
[2025-04-15] MEDS: 0.9 % SODIUM CHLORIDE 1000 ml 1,000 ML IV (17:56)
[2025-04-15 17:58] LABS: Basophils Absolute Auto 0.02 K/uL (0.00-0.30); Basophils Percent Auto 0.3 % (0.0-3.0); Eosinophils Absolute Auto 0.07 K/uL (0.00-0.50); Eosinophils Percent Auto 0.9 % (0.0-7.0); Hematocrit 43.2 % (33.0-51.0); Immature Granulocytes Abs Auto 0.08 K/uL (0.00-0.30); Lymphocytes Percent Auto 18.4 % (20-44); Mean Corpuscular HGB Conc 32 gm/dL (32-36); Mean Corpuscular Hemoglobin 28 pg (26-34); Mean Corpuscular Volume 86 fL (80-100); Monocytes Percent Auto 7.4 % (0.0-11.0); Neutrophils Absolute Auto 5.62 K/uL (1.7-7.0); Platelet Count* 320 K/uL (140-440); RDW Coefficient of Variation % 11.9 % (11.5-15.5); Red Blood Count 5.01 m/uL (4.00-5.20); White Blood Count* 7.81 K/uL (4.50-11.00)
[2025-04-15] MEDS: HALOPERIDOL 5 MG/ML INJ 2.5 MG IV (18:03)
--- NOTE | 2025-04-15 18:04 | CRLHL7_ITS ---
For Patients: As a result of the Century Cures Act, medical imaging exams and procedure reports are released immediately into your electronic medical record. You may view this report before your referring provider. If you have questions, please contact your health care provider. INDICATION: REPETOTIVE VOMITING, DIFFUSE CHEST PAIN, ABDOMINAL PAIN TECHNIQUE: CT chest, abdomen and pelvis acquired with 111 milliliters of Isovue 370 IV contrast. COMPARISON: CT of the chest from April 14, 2025 FINDINGS: CHEST: Cardiovascular structures: Heart size is normal. Thoracic aorta and main pulmonary artery are normal in caliber. Mediastinum and hans: No mass or adenopathy. Lungs and pleura: Lungs and pleural spaces are clear. No suspicious nodules, infiltrates, or effusions. Chest wall and axilla: No mass or adenopathy. Bones: No suspicious bone lesions. Unremarkable for age. ABDOMEN AND PELVIS: Liver: Unremarkable. Gallbladder and bile ducts: Dense material within the gallbladder may represent sludge. Focal fatty infiltration at the anterior right hepatic lobe near the falciform ligament. Pancreas: Unremarkable. Spleen: Unremarkable. Adrenal glands: Unremarkable. Kidneys: Mild left hydroureteronephrosis. Punctate stone at the left distal ureter just proximal to the UVJ (2/240). No right-sided hydronephrosis or renal stones. GI tract: No bowel obstruction. Appendix is within normal limits. Small hiatal hernia. Vascular structures: Unremarkable. Lymph nodes: Unremarkable. Miscellaneous: Unremarkable. No free air or significant free fluid. Pelvic Organs: Bladder is decompressed. Uterus is unremarkable. Bones: No suspicious bone lesions. Unremarkable for age. IMPRESSION: 1. Punctate stone at the distal left ureter adjacent to the left UVJ. Proximal mild hydroureteronephrosis. 2. No acute process in the chest. Please note that all CT scans at this facility use dose modulation, iterative reconstruction, and/or weight-based dosing when appropriate to reduce radiation dose to as low as reasonably achievable. Dictated by Rohini Castillo MD @ 04/15/2025 7:30:53 PM (Electronically Signed)
[2025-04-15 18:14] LABS: Slide Review Reflex No
[2025-04-15 18:16] LABS: Albumin* 4.6 g/dL (3.3-5.0); Chloride* 99 mmol/L (96-114); Potassium* 3.4 mmol/L (3.6-5.1); Sodium* 140 mmol/L (135-149)
--- OUTSIDE RECORDS SUMMARY | 2025-04-15 18:18 | XMS_ITS | Clinical Summary ---
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 Name Role Phone Colette THEODORE, Meramaged Granger [phone] Conditions or Problems Problem Name Problem Code Onset Date Status Entry Date Provider Comment Standard Description Annotate Migraine 42438249 (SNOMED CT) Active Marquis Mckeon MD Migraine Headache, post traumatic 03555626 (SNOMED CT) Active Marquis Mckeon MD Posttraumatic headache Dizziness 142920231 (SNOMED CT) Active Marquis Mckeon MD Dizziness Medications Medication Instructions Start Date Stop Date Generic Name ND Provider PROPRANOLOL HCL 20 MG TABS 1 tablet by mouth twice a day 3 propranolol [id number] Marquis Mckeon MD RIZATRIPTAN BENZOATE 10 MG TABS TAKE ONE TABLET BY MOUTH AT ONSET OF MIGRAINE AND EVERY 2 HOURS NEEDED. MAX 2 TABLETS IN 24 HOURS 3 rizatriptan [id number] Marquis Mckeon MD MECLIZINE HCL 25 MG TABS 1 tablet by mouth three times a day as directed For dizziness 3 meclizine [id number] Marquis Mckeon MD Medications Administered No information [...] Procedures Code Procedure Name Date Entry Date [facility]-[id number] Documentation of current medicatio ns [facility]-[id number] Documentation of current medicatio ns [facility]-[id number] Documentation of current medicatio ns [id number] Documentation of current medicatio ns [id number] MRI-Brain W/WO [id number] MRA-Neck W/WO [id number] MRA-Head W/O ORDERS Other Referral Vital Signs No information available. Immunizations No information available. Advance Directives No information available.
[2025-04-15 18:19] LABS: Alanine Aminotransferase* 27 U/L (4-35); Alkaline Phosphatase* 130 U/L (40-150); Anion Gap 13 mEq/L (7-15); Aspartate Amino Transferase* 34 U/L (12-35); Bilirubin Total* 0.7 mg/dL (0.1-1.5); Blood Urea Nitrogen* 9 mg/dL (5-24); Carbon Dioxide* 28 mmol/L (20-32); Creatinine* 1.2 mg/dL (0.5-1.5); Est. Creatinine Clearance* 56.43; Estimated Glomerular Filt Rate 66 ml/min; Lipase* 69 U/L (23-300); Total Protein* 7.9 g/dL (6.0-8.3)
[2025-04-15 18:20] LABS: Calcium* 9.2 mg/dL (8.4-10.6); Glucose* 93 mg/dL (60-115)
[2025-04-15] MEDS: GI COCKTAIL (VISC LIDO/ANTACID) 30 ML PO (20:53)
[2025-04-15 21:53] LABS: Amphetamine Screen Urine Negative (Negative); Barbiturate Screen Urine Negative (Negative); Benzodiazepines Screen Urine Negative (Negative); Cannabinoid Screen Urine Negative (Negative); Cocaine Screen Urine Negative (Negative); Methadone Screen Urine Negative (Negative); Methamphetamines Screen Urine Negative (Negative); Opiate Screen Urine POSITIVE (Negative); Oxycodone Screen Urine Negative (Negative); Phencyclidine Screen Urine Negative (Negative); Tricyclic Antidepressant Urine Negative (Negative)
[2025-04-15 22:07] LABS: Ethanol* < 0.01 % (0.01-0.03)
[2025-04-15] MEDS: METOCLOPRAMIDE HCL 5 MG/ML INJ 10 MG IVP (22:12)
--- NOTE | 2025-04-15 22:14 | P.IMHP_ITS ---
Assessment and Plan Assessment and plan (1) Abdominal pain: Problem comment: Onset 04/07/2025, persisting Palpable pain is noted with just light touch to lower abdominal wall Denies pelvic symptoms, reports no sexual activity. Urine HCG neg. Chlamydia/gonorrhea, Ureaplasma ordered Afebrile, no leukocytosis, lipase 69, UC from 04/14 growing >100,000 next gram positive sisi Continue IVF, pain management Consider ultrasound. With history of PCOS, ovarian cysts/rupture on list of differentials Status: Acute (2) Acute flank pain: Problem comment: CT from 04/14 shows 2 mm obstructing stone at the left UVJ with mild left hydroureteronephrosis; no significant change on 04/15 Status: Acute (3) Kidney stone on left side: Problem comment: CT from 04/14 shows 2 mm obstructing stone at the left UVJ with mild left hydroureteronephrosis; no significant change on 04/15 Would imagine this size stone could pass on its own, however given persisting pain, nausea, vomiting, consider discussion with urology if no improvement Status: Acute (4) Vomiting: Problem comment: Reported by patient to have blood in it. Emesis in ED reported without evidence of ngozi blood. Hemoglobin stable Has had several days of vomiting, denies history of PUD, no alcohol use No significant electrolyte abnormalities (potassium 3.4), mag and phosphorus ordered, UDS negative for THC, opiates prescribed from recent ED visits IVF, anti-emetics, PPI, small sips of clears as tolerated Monitor Consider EGD if hematemesis Status: Acute (5) Anxiety: Problem comment: -continue home meds when n/v managed Status: Acute (6) Depression: Problem comment: -continue home meds when n/v managed Status: Chronic (7) ADHD (attention deficit hyperactivity disorder): Problem comment: -continue home meds when n/v managed Status: Chronic Total Time Spent Total Time Spent: Today I spent 90 minutes seeing the patient, reviewing Expanse and EPIC notes/diagnostics, discussing the care plan with our care time that includes social work, PT/OT, pharmacy, RT, senior care and documenting my impressions and plan in the medical record. Hospitalist- H&P: HPI History of Present Illness Date Seen: 04/15/25 Chief complaint: vomiting blood Narrative: Lisset Dodson is a 19 year old female past medical history significant for depression, anxiety, ADHD, PCOS, migraines is admitted to the medical floor from the ED for persistent nausea and vomiting in setting of left flank pain and abdominal pain. Patient reports onset of left flank pain wrapping around abdomen, radiating to right side approximately 7-10 days ago. Followed by nausea and vomiting. She has been seen in the [place] emergency department on 04/07 (x2), 04/08, as well as in this ED on 04/09, 04/10, 04/14 and again this evening 04/15. Was seen in the clinic for follow-up on 04/14 additionally. EMR notes she was also seen in the clinic on 03/26 for left upper abdominal pain but this was reported to be a localized pain over a lipoma. Reports pain is stabbing, constant, in nature. The pain is not made worse by anything and is not improving. She has had some burning pain into her chest but does not normally have a history of heartburn. Denies any rectal pain or pressure. Denies any vaginal/pelvic pain, burning or discharge. Reports increased urination frequency and recent dysuria. No blood in the urine. History of UTIs. She continues to vomit on a daily basis. Reports being unable to keep down clears or applesauce. Has not been able to take her normal daily medications as she just vomits them up. She reports seeing blood in her vomit. This was not seen in the ED this evening. Her last bowel movement was approx imately 2 weeks ago which is normal for her. She does not feel constipated. No recent melena. Due to her PCOS, she does not have a normal menstrual cycle and does not recall her last period. Patient is not nor has ever been sexually active. No fevers. Denies dose changes in her normal medications. Was given guaifenesin with codeine for a cough at the beginning of March but has not taken that in several weeks. Was given [place] and antinausea medications recently during her ED visits but has not been able to keep these down. Nonsmoker, does not vape. Denies alcohol use. Denies THC use or illicit drug use. Graduated high school 2022. Lives with family. Looking for a job in healthcare. PCP is Dr. Pritchett. Review of Systems Narrative: REVIEW OF SYSTEMS: Complete review of systems performed and negative unless otherwise stated in HPI or below. PFSH PFSH Medical History IUD complication ?T83.9XXA - Unspecified complication of genitourinary prosthetic device, implant and graft, initial encounter (ICD-10) Family History Family/Other Heart disease Stroke High blood pressure Diabetes Alcohol dependence Aunt Breast cancer High cholesterol Grandmother Ovarian cancer High blood pressure High cholesterol Mother High cholesterol FH: mental illness Alcohol dependence Drug dependence Father Alcohol dependence Drug dependence Social History What is your current living situation?: I presently have a place to live Problems where you live: no known problems In the past 12 months, utilities in danger of being shut off: no In past 12 months, lack of transportation kept you from medical appts, meetings, work, or getting things needed for daily living: no In the past 12 mos, have been you worried that your food would run out before you had money to buy more?: never true In the past 12 mos, the food you bought just didn't last and you didn't have money to buy more?: never true Smoking Status: Never smoker Do you use any of these nicotine containing products: None Second hand tobacco smoke exposure: No How often do you have a drink containing alcohol: never AUDIT-C Alcohol total score: 0 Non-prescribed substance use: denies use How often does anyone, including family, friends and others, physically hurt you : never How often does anyone, including family, friends and others, insult or talk down to you: never How often does anyone, including family, friends and others, threaten you with harm: never How often does anyone, including family, friends and others, scream or curse at you: never service: No Meds Home Medications and Allergies Home Medications ?Medication ?Instructions ?Recorded ?Confirmed ?Type bupropion HCl 150 mg 24 hr tablet, 150 mg PO QAM 06/2104/15/25 History extended release dextroamphetamine sulfate 10 mg 10 mg PO BID 06/21/23 04/15/25 History capsule,extended release fluoxetine 40 mg capsule 40 mg PO DAILY 06/21/2303/19 9/25 History hydroxyzine HCl 25 mg tablet 25 mg PO DAILY 06/21/23 0 04/15/25 History hydrocodone 5 mg-acetaminophen 325 1 tab PO Q4-6H PRN pain #10 tabs 04/10/25 04/15/25 Rx mg tablet ketorolac 10 mg tablet 10 mg PO TID 5 days #15 tabs 04/10/25 04/15/25 Rx hydrocodone 5 mg-acetaminophen 325 1 tab PO Q8H PRN pa in #10 tabs 04/14/25 04/15/25 Rx mg tablet ondansetron HCl 4 mg tablet 4 mg PO Q8-12H PRN nausea and 04/14/25 04/15/25 Rx vomiting #7 tabs Allergies Allergy/AdvReac Type Severity Reaction Status Date / Time escitalopram (From [employer] ([employer]OM[employer]) Allergy Mild Headache Verified 04/15/25 18:20 adhesive AdvReac Mild Rash Verified 04/15/25 18:20 Exam Narrative: Exam Narrative: PHYSICAL EXAM General: Flat, appropriately conversant, appears tired otherwise NAD HEENT: Normocephalic, atraumatic, sclera white, EOMI, oral mucosa dry Cardiovascular: RRR, S1S2. No pitting edema Pulmonary: CTA bilaterally without rhonchi, rales, expiratory wheezes. No dyspnea on room air Abdominal: Nondistended, soft, immediate pain with light touch just to skin without deep palpation diffusely across lower abdomen, no guarding Neurological: Alert, answering questions appropriately, cranial nerves intact, no focal findings Extremities: No gross joint deformity or swelling. AROMI. Neurovascularly intact Skin: Warm, dry. Const: Vital Signs, click to edit/add: Vital Signs - 24 hr 04/15/25 17:16 04/15/25 18:27 04/15/25 18:29 Temperature 98.0 F Pulse Rate 80 Pulse Rate [Pulse Oximeter] 85 Respiratory Rate 16 Blood Pressure [Ri ght Upper Arm] 136/87 Pulse Oximetry 98 98 98 Oxygen Delivery Me thod Room Air 04/15/25 18:30 04/15/25 18:45 04/15/25 19:00 Temperature Pulse Rate 82 77 81 Pulse Rate [Pulse Oximeter] Respiratory Rate Blood Pressure [Ri ght Upper Arm] Pulse Oximetry 99 99 98 Oxygen Delivery Me thod 04/15/25 19:15 Temperature Pulse Rate 82 Pulse Rate [Pulse Oximeter] Respiratory Rate 18 Blood Pressure [Ri ght Upper Arm] Pulse Oximetry [address]od Hospitalist - H&P: Result Labs Labs: Short CBC 04/15/25 Range/Units 17:45 WBC 7.81 (4.50-11.00) K/uL Hgb 14.0 (12.0-16.0) gm/dL Hct 43.2 (33.0-51.0) % Plt Count 320 (140-440) K/uL BMP 04/15/25 17:45 Sodium 140 Potassium 3.4 L Chloride 99 Carbon Dioxide 28 BUN 9 Creatinine 1.2 Glucose 93 Calcium 9.2 Liver Function 04/15/25 Range/Units 17:45 Total Bilirubin 0.7 (0.1-1.5) mg/dL AST 34 (12-35) U/L ALT 27 (4-35) U/L Alkaline Phosphatase 130 (40-150) U/L Albumin 4.6 (3.3-5.0) g/dL ECG Attestation: I personally reviewed and interpreted this ECG as follows: ECG interpretation date: 04/15/25 Interpretation: NSR, ventricular rate 74, QTC [address] Chest/Ab/Pelvis: Attestation: I have reviewed the pertinent imaging results. Radiologist's impression: CHEST: Cardiovascular structures: Heart size is normal. Thoracic aorta and main pulmonary artery are normal in caliber. Mediastinum and hans: No mass or adenopathy. Lungs and pleura: Lungs and pleural spaces are clear. No suspicious nodules, infiltrates, or effusions. Chest wall and axilla: No mass or adenopathy. Bones: No suspicious bone lesions. Unremarkable for age. ABDOMEN AND PELVIS: Liver: Unremarkable. Gallbladder and bile ducts: Dense material within the gallbladder may represent sludge. Focal fatty infiltration at the anterior right hepatic lobe near the falciform ligament. Pancreas: Unremarkable. Spleen: Unremarkable. Adrenal glands: Unremarkable. Kidneys: Mild left hydroureteronephrosis. Punctate stone at the left distal ureter just proximal to the UVJ (2/240). No right-sided hydronephrosis or renal stones. GI tract: No bowel obstruction. Appendix is within normal limits. Small hiatal hernia. Vascular structures: Unremarkable. Lymph nodes: Unremarkable. Miscellaneous: Unremarkable. No free air or significant free fluid. Pelvic Organs: Bladder is decompressed. Uterus is unremarkable. Bones: No suspicious bone lesions. Unremarkable for age. IMPRESSION: 1. Punctate stone at the distal left ureter adjacent to the left UVJ. Proximal mild hydroureteronephrosis. 2. No acute process in the chest. Outside CT abdomen pelvis 04/07/2025: Attestation: I have reviewed the pertinent imaging results. Radiologist's impression: CT ABDOMEN PELVIS WITH CONTRAST, obtained on 04/07/2025 6:43 AM REASON FOR EXAM: Left flank pain, left abd pain COMPARISON: None. TECHNIQUE: Axial image data of the abdomen and pelvis was acquired from?the lung bases through the ischial tuberosities. Coronal and sagittal?image reconstructions were performed. CONTRAST: Intravenous FINDINGS: Lung Bases: Normal. Liver: Normal. Gallbladder: Normal. Spleen: Normal. Pancreas: Normal. Adrenal Glands: Normal. Kidneys: Mild left hydronephrosis, hydroureter, calculus 0.1 cm possible?distal left ureter image 75 series 5. No other stone on either side. No?right hy dronephrosis. No suspicious renal mass. Vasculature: Normal. Retroperitoneum: Normal. GI Tract: Normal. Pelvis: Normal. Bladder: Incompletely distended. Bones: Normal bowel caliber and wall thickness. Appendix visualized,?normal. IMPRESSION: Left hydroureteronephrosis, suspect stone 0.1 cm distal left ureter as?described. CT abdomen pelvis 04/14/2025: Attestation: I have reviewed the pertinent imaging results. Radiologist's impression: Lower chest: Unremarkable. Liver: Unremarkable. Gallbladder and bile ducts: Unremarkable. No biliary dilatation. Spleen: Unremarkable. Pancreas: Unremarkable. Adrenal glands: Unremarkable. Kidneys, Ureters, and Bladder: There is a 2 mm obstructing stone at the left ureterovesicular junction with mild upstream left hydroureteronephrosis (series 503 image 140). No other renal stones identified. No right hydronephrosis or ureteral dilation. No bladder wall thickening. Reproductive organs: Unremarkable noncontrast appearance. GI tract/Peritoneum: No small bowel dilation. Moderate stool burden. The stool is hyperdense which may be related to previously ingested medication or enteric contrast. Negative appendix. No intraperitoneal free air or fluid. Vasculature: Abdominal aorta is normal in caliber. Lymph nodes: Mildly prominent periaortic lymph nodes are likely reactive. Abdominal Wall: Unremarkable. Bones: Unremarkable for age. IMPRESSION: 2 mm obstructing stone at the left UVJ with mild left hydroureteronephrosis.
[2025-04-15 23:17] LABS: Magnesium* 1.8 mg/dL (1.5-2.6); Phosphorus* 2.5 mg/dL (2.5-4.5)
[2025-04-15 23:23] LABS: Lab Add On Test New Spec Needed
[2025-04-15] MEDS: SENNOSIDES/DOCUSATE TABLET 1 TAB PO (23:26)
[2025-04-15] MEDS: 0.9 % SODIUM CHLORIDE 1000 ml 1,000 ML 125 ML IV (23:30)
[2025-04-16 00:38] LABS: Chlamydia DNA Amplified* NOT DETECTED (No Detected); GC DNA Amplified* NOT DETECTED (No Detected)
[2025-04-16 05:00] VITALS: BP 123/60; PULSE 86; RESP 18; TEMP 36.8; O2SAT 96
[2025-04-16] MEDS: OMEPRAZOLE 20 MG CAPSULE DR 40 MG PO (06:12)
[2025-04-16 06:28] LABS: Hematocrit 37.7 % (33.0-51.0); Hemoglobin* 12.2 gm/dL (12.0-16.0); Mean Corpuscular HGB Conc 32 gm/dL (32-36); Mean Corpuscular Hemoglobin 28 pg (26-34); Mean Corpuscular Volume 87 fL (80-100); Platelet Count* 305 K/uL (140-440); Red Blood Count 4.33 m/uL (4.00-5.20); White Blood Count* 7.17 K/uL (4.50-11.00)
[2025-04-16 06:34] LABS: Slide Review Reflex No
[2025-04-16] MEDS: 0.9 % SODIUM CHLORIDE 1000 ml 1,000 ML 125 ML IV (06:34)
[2025-04-16 06:36] LABS: Chloride* 104 mmol/L (96-114); Potassium* 3.4 mmol/L (3.6-5.1); Sodium* 138 mmol/L (135-149)
[2025-04-16 06:39] LABS: Anion Gap 10 mEq/L (7-15); Blood Urea Nitrogen* 6 mg/dL (5-24); Calcium* 8.2 mg/dL (8.4-10.6); Carbon Dioxide* 24 mmol/L (20-32); Est. Creatinine Clearance* 67.72; Estimated Glomerular Filt Rate 83 ml/min; Glucose* 90 mg/dL (60-115)
[2025-04-16] MEDS: METOCLOPRAMIDE HCL 5 MG/ML INJ 10 MG IVP (06:44)
--- NOTE | 2025-04-16 07:37 | PC.NURSE ---
Shift note ([id number]): Patient admitted from ED at 2215. Pleasant, alert and oriented. Independent in room. Reported abdominal and mid-gastric pain rated 8/10 upon admission. Declined PRN Tylenol. Denied pain at 0500. Reported some nausea during the night. Had one episode of emesis and retching at 0600. Emesis was approximately 60cc of thick light-yellow mixed with clear water; no noted blood. Given PRN nausea meds at that time.?
[2025-04-16 07:45] VITALS: BP 139/84; PULSE 86; RESP 14; TEMP 37; O2SAT 96
[2025-04-16] MEDS: ACETAMINOPHEN 325 MG TABLET 1000 MG PO (07:55)
[2025-04-16 08:22] VITALS: PULSE 98; RESP 14
[2025-04-16] MEDS: PANTOPRAZOLE SODIUM 40 MG INJ IVP (08:34)
[2025-04-16] MEDS: SODIUM CHLORIDE 0.9 % (FLUSH) 10 ML SYRINGE 5 ML IVF (08:45)
--- NOTE | 2025-04-16 10:17 | P.ANES_ITS ---
Anesthesia Charges Start Date/Time Anesthesia Start Date: 04/16/25 Anesthesia Start Time: 10:30 Stop Date/Time Anesthesia Stop Date: 04/16/25 Anesthesia Stop Time: 10:46 Coding CPT Codes CPT Codes: ANES UPR GI NDSC PX NOS - 05533 ([id number]) P3 - PATIENT W/SEVERE SYS DISEASE, QK - AGRICULTURAL EQUIPMENT SALES MANAGER 2-4 CNCRNT ANES PROC, QX - AUTOMOBILE WRECKER SVC W/ MD MED DIRECTION
--- NOTE | 2025-04-16 10:17 | W.ANESCHARGE ---
Anesthesia Charges Start Date/Time Anesthesia Start Date: 04/16/25 Anesthesia Start Time: 10:30 Stop Date/Time Anesthesia Stop Date: 04/16/25 Anesthesia Stop Time: 10:46 Coding CPT Codes CPT Codes: ANES UPR GI NDSC PX NOS - 08120 ([id number]) P3 - PATIENT W/SEVERE SYS DISEASE, QK - PRODUCT ENGINEER 2-4 CNCRNT ANES PROC, QX - SUPERVISOR VAT HOUSE SVC W/ MD MED DIRECTION
--- NOTE | 2025-04-16 10:45 | PM.IMPN1 ---
Assessment and Plan Assessment and plan (1) Hematemesis: Problem comment: Reported by patient to have blood in it. Emesis in ED reported without evidence of ngozi blood. Hemoglobin stable Has had several days of vomiting, denies history of PUD, no alcohol use No significant electrolyte abnormalities (potassium 3.4), mag and phosphorus ordered, UDS negative for THC, opiates prescribed from recent ED visits IVF, anti-emetics, PPI, small sips of clears as tolerated 04/16: She was complaining of epigastric pain and she vomited twice she said she was not able to keep any food for couple of days. She added that she has had a large amount of coffee-ground emesis yesterday. She said she sometimes takes ibuprofen or other OTC pain killers with no personal or family history of stomach issues per her description. Hemoglobin decreased from 14-12.2. Ordered IV pantoprazole and EGD today. Status: Acute (2) Abdominal pain: Problem comment: Onset 04/07/2025, persisting Palpable pain is noted with just light touch to lower abdominal wall Denies pelvic symptoms, reports no sexual activity. Urine HCG neg. Chlamydia/gonorrhea, Ureaplasma ordered Afebrile, no leukocytosis, lipase 69, UC from 04/14 growing >100,000 next gram positive sisi Continue IVF, pain management Consider ultrasound. With history of PCOS, ovarian cysts/rupture on list of differentials Status: Acute (3) Acute flank pain: Problem comment: CT from 04/14 shows 2 mm obstructing stone at the left UVJ with mild left hydroureteronephrosis; no significant change on 04/15 Status: Acute (4) Kidney stone on left side: Problem comment: CT from 04/14 shows 2 mm obstructing stone at the left UVJ with mild left hydroureteronephrosis; no significant change on 04/15 Would imagine this size stone could pass on its own, however given persisting pain, nausea, vomiting, consider discussion with urology if no improvement Status: Acute (5) Anxiety: Problem comment: -continue home meds when n/v managed Status: Acute (6) Depression: Problem comment: -continue home meds when n/v managed Status: Chronic (7) ADHD (attention deficit hyperactivity disorder): Problem comment: -continue home meds when n/v managed Status: Chronic Total Time Spent Total Time Spent: Today I spent 50 minutes seeing the patient, reviewing Expanse and EPIC notes/diagnostics, discussing the care plan with our care time that includes social work, PT/OT, pharmacy, RT, fpc and documenting my impressions and plan in the medical record. Subjective Date Seen: 04/16/25 Interval history: Patient was seen and examined at bedside today. She was complaining of epigastric pain and she vomited twice she said she was not able to keep any food for couple of days. She added that she has had a large amount of coffee-ground emesis yesterday. She said she sometimes takes ibuprofen or other OTC pain killers with no personal or family history of stomach issues per her description. Hemoglobin decreased from 14-12.2. Ordered IV pantoprazole and EGD today. Exam Narrative: Exam Narrative: Physical exam GENERAL: Comfortable, no acute distress. HEAD AND NECK: Atraumatic, normocephalic CARDIOVASCULAR: RRR. Normal S1, S2. RESPIRATORY: Clear to auscultation B/L. Good air entry B/L. No wheezes or rhonchi. GASTROINTESTINAL: Not distended, not tender to palpation. NEUROLOGY: Alert, awake, oriented X 3. Normal speech. PSYCH: Normal mood, normal affect. Const: Vital Signs, click to edit/add: Vital Signs - 24 hr 04/15/25 17:16 04/15/25 18:27 04/15/25 18:29 Temperature 98.0 F Pulse Rate 80 Pulse Rate [Pulse Oximeter] 85 Respiratory Rate 16 Blood Pressure [Ri ght Arm] Blood Pressure [Ri ght Upper Arm] 136/87 Pulse Oximetry 98 98 98 Oxygen Delivery Me thod Room Air 04/15/25 18:30 04/15/25 18:45 04/15/25 19:00 Temperature Pulse Rate 82 77 81 Pulse Rate [Pulse Oximeter] Respiratory Rate Blood Pressure [Ri ght Arm] Blood Pressure [Ri ght Upper Arm] Pulse Oximetry 99 99 98 Oxygen Delivery Me thod 04/15/25 19:15 04/15/25 22:38 04/15/25 22:51 Temperature 99.2 F Pulse Rate 82 Pulse Rate [Pulse Oximeter] 80 Respiratory Rate 18 22 22 Blood Pressure [Ri ght Arm] 154/82 H Blood Pressure [Ri ght Upper Arm] Pulse Oximetry 100 100 100 Oxygen Delivery Me thod Room Air Room Air 04/16/25 05:00 04/16/25 07:45 04/16/25 08:22 Temperature 98.3 F 98.6 F Pulse Rate Pulse Rate [Pulse Oximeter] 86 86 98 Respiratory Rate 18 14 14 Blood Pressure [Ri ght Arm] 123/60 139/84 [facility] Pulse Oximetry 96 96 Oxygen Delivery Me thod Room Air Room Air Labs Labs: Laboratory Results - last 24 hr 04/15/25 04/15/25 04/15/25 17:45 22:35 22:47 WBC 7.81 RBC 5.01 Hgb 14.0 Hct 43.2 MCV 86 MCH 28 MCHC 32 RDW Coeff of Martine 11.9 Plt Count 320 Neut % (Auto) 72.0 Lymph % (Auto) 18.4 L [place] % (Auto) 7.4 Eos % (Auto) 0.9 Baso % (Auto) 0.3 Neut # (Auto) 5.62 Lymph # (Auto) 1.40 [place] # (Auto) 0.60 Eos # (Auto) 0.07 Baso # (Auto) 0.02 Abs Immat Gran (auto) 0.08 Imm/Tot Granulo (auto) 1.0 Sodium 140 Potassium 3.4 L Chloride 99 Carbon Dioxide 28 Anion Gap 13 BUN 9 Creatinine 1.2 Estimated Creat Clear 56.43 Estimated GFR 66 Glucose 93 Lactate 1.8 Calcium 9.2 Phosphorus 2.5 Magnesium 1.8 Total Bilirubin 0.7 AST 34 ALT 27 Alkaline Phosphatase 130 Total Protein 7.9 Albumin 4.6 Lipase 69 Urine Opiates Screen Ur Oxycodone Screen Urine Methadone Screen Ur Barbiturates Screen U Tricyclic Antidepress Ur Phencyclidine Scrn Ur Amphetamines Screen U Methamphetamines Scrn U Benzodiazepines Scrn Urine Cocaine Screen U Marijuana (THC) Screen Ur Drug Screen Comment Ethyl Alcohol C.trachomatis Ampl DNA NOT DETECTED N.gonorrhoeae Ampl DNA NOT DETECTED Lab Acknowledgement Test Added 04/15/25 04/15/25 04/16/25 23:20 Unknown 06:01 WBC 7.17 RBC 4.33 Hgb 12.2 Hct 37.7 MCV 87 MCH 28 MCHC 32 RDW Coeff of Martine Plt Count 305 Neut % (Auto) Lymph % (Auto) [place] % (Auto) Eos % (Auto) Baso % (Auto) Neut # (Auto) Lymph # (Auto) [place] # (Auto) Eos # (Auto) Baso # (Auto) Abs Immat Gran (auto) Imm/Tot Granulo (auto) Sodium 138 Potassium 3.4 L Chloride 104 Carbon Dioxide 24 Anion Gap 10 BUN 6 Creatinine 1.0 Estimated Creat Clear 67.72 Estimated GFR 83 Glucose 90 Lactate Calcium 8.2 L Phosphorus Magnesium Total Bilirubin AST ALT Alkaline Phosphatase Total Protein Albumin Lipase Urine Opiates Screen POSITIVE A Ur Oxycodone Screen Negative Urine Methadone Screen Negative Ur Barbiturates Screen Negative U Tricyclic Antidepress Negative Ur Phencyclidine Scrn Negative Ur Amphetamines Screen Negative U Methamphetamines Scrn Negative U Benzodiazepines Scrn Negative Urine Cocaine Screen Negative U Marijuana (THC) Screen Negative Ur Drug Screen Comment See Note Ethyl Alcohol < 0.01 C.trachomatis Ampl DNA N.gonorrhoeae Ampl DNA Lab Acknowledgement New Spec Needed A
--- NOTE | 2025-04-16 10:46 | P.ANES_ITS ---
Anesthesia Charges Start Date/Time Anesthesia Start Date: 04/16/25 Anesthesia Start Time: 10:30 Stop Date/Time Anesthesia Stop Date: 04/16/25 Anesthesia Stop Time: 10:46 Coding CPT Codes CPT Codes: ANES UPR GI NDSC PX NOS - 58760 ([id number]) P3 - PATIENT W/SEVERE SYS DISEASE, QK - CHESTNUT TANNER 2-4 CNCRNT ANES PROC, QX - CYBER SOFTWARE ENGINEER SVC W/ MD MED DIRECTION
--- NOTE | 2025-04-16 10:46 | W.ANESCHARGE ---
Anesthesia Charges Start Date/Time Anesthesia Start Date: 04/16/25 Anesthesia Start Time: 10:30 Stop Date/Time Anesthesia Stop Date: 04/16/25 Anesthesia Stop Time: 10:46 Coding CPT Codes CPT Codes: ANES UPR GI NDSC PX NOS - 32418 ([id number]) P3 - PATIENT W/SEVERE SYS DISEASE, QK - GENERAL PRODUCTION LABORER 2-4 CNCRNT ANES PROC, QX - WET AND DRY SUGAR BIN OPERATOR SVC W/ MD MED DIRECTION
[2025-04-16 11:18] VITALS: BP 151/87; PULSE 85; RESP 16; TEMP 36.8; O2SAT 98
--- NOTE | 2025-04-16 13:19 | P.DS_ITS ---
DS: Providers Provider Date Seen: 04/16/25 Date of admission: 04/15/25 22:15 Primary care physician: Alfred Pritchett MD Admitting Clinician: Ally Saba MD Attending Physician on discharge: Yoli Marinelli MD DS: Diagnosis Discharge Diagnosis (1) Hematemesis: Status: Acute Problem details: Reported by patient to have blood in it. Emesis in ED reported without evidence of ngozi blood. Has had several days of vomiting, denies history of PUD, no alcohol use 04/16: She was complaining of epigastric pain and she vomited twice she said she was not able to keep any food for couple of days. She added that she has had a large amount of coffee-ground emesis yesterday. She said she sometimes takes ibuprofen or other OTC pain killers with no personal or family history of stomach issues per her description. Hemoglobin decreased from 14-12.2. Ordered IV pantoprazole and EGD today was unremarkable. (2) Abdominal pain: Status: Acute Problem details: Onset 04/07/2025, persisting Palpable pain is noted with just light touch to lower abdominal wall Denies pelvic symptoms, reports no sexual activity. Urine HCG neg. Chlamydia/gonorrhea, Ureaplasma ordered Afebrile, no leukocytosis, lipase 69, UC from 04/14 growing >100,000 next gram positive sisi Continue IVF, pain management Consider ultrasound. With history of PCOS, ovarian cysts/rupture on list of differentials (3) Acute flank pain: Status: Acute Problem details: CT from 04/14 shows 2 mm obstructing stone at the left UVJ with mild left hydroureteronephrosis; no significant change on 04/15 (4) Kidney stone on left side: Status: Acute Problem details: CT from 04/14 shows 2 mm obstructing stone at the left UVJ with mild left hydroureteronephrosis; no significant change on 04/15 Would imagine this size stone could pass on its own, however given persisting pain, nausea, vomiting, consider discussion with urology if no improvement (5) Anxiety: Status: Acute Problem details: -continue home meds when n/v managed (6) Depression: Status: Chronic Problem details: -continue home meds when n/v managed (7) ADHD (attention deficit hyperactivity disorder): Status: Chronic Problem details: -continue home meds when n/v managed DS: Summary Hospital Course Hospital Course: A 19 year old female past medical history significant for depression, anxiety, ADHD, PCOS, migraines is admitted to the medical floor from the ED for persistent nausea and vomiting in setting of left flank pain and abdominal pain. CT from 04/14 shows 2 mm obstructing stone at the left UVJ with mild left hydroureteronephrosis; no significant change on 04/15. In addition, pt had hematemesis (described as coffee-ground color) and epigastric pain, thus EGD was done and it was unremarkable. Pt improved and DCed to f/up w / PCP. Time Spent with Patient Time attestation: Total time spent providing and/or coordinating discharge services: Exam Narrative: Exam Narrative: GENERAL: Comfortable, no acute distress. HEAD AND NECK: Atraumatic, normocephalic CARDIOVASCULAR: RRR. Normal S1, S2. RESPIRATORY: Clear to auscultation B/L. Good air entry B/L. No wheezes or rhonchi. GASTROINTESTINAL: Not distended, not tender to palpation. NEUROLOGY: Alert, awake, oriented X 3. Normal speech. PSYCH: Normal mood, normal affect. Const: Vital Signs, click to edit/add: Vital Signs - 24 hr 04/15/25 17:16 04/15/25 18:27 04/15/25 18:29 Temperature 98.0 F Pulse Rate 80 Pulse Rate [Pulse Oximeter] 85 Respiratory Rate 16 Blood Pressure [Ri ght Arm] Blood Pressure [Ri ght Upper Arm] 136/87 Pulse Oximetry 98 98 98 Oxygen Delivery Me thod Room Air 04/15/25 18:30 04/15/25 18:45 04/15/25 19:00 Temperature Pulse Rate 82 77 81 Pulse Rate [Pulse Oximeter] Respiratory Rate Blood Pressure [Ri ght Arm] Blood Pressure [Ri ght Upper Arm] Pulse Oximetry 99 99 98 Oxygen Delivery Me thod 04/15/25 19:15 04/15/25 22:38 04/15/25 22:51 Temperature 99.2 F Pulse Rate 82 Pulse Rate [Pulse Oximeter] 80 Respiratory Rate 18 22 22 Blood Pressure [Ri ght Arm] 154/82 H Blood Pressure [Ri ght Upper Arm] Pulse Oximetry 100 100 100 Oxygen Delivery Me thod Room Air Room Air 04/16/25 05:00 04/16/25 07:45 04/16/25 08:22 Temperature 98.3 F 98.6 F Pulse Rate Pulse Rate [Pulse Oximeter] 86 86 98 Respiratory Rate 18 14 14 Blood Pressure [Ri ght Arm] 123/60 139/84 Blood Pressure [Ri ght Upper Arm] Pulse Oximetry 96 96 Oxygen Delivery Me thod Room Air Room Air 04/16/25 11:18 Temperature 98.2 F Pulse Rate Pulse Rate [Pulse Oximeter] 85 Respiratory Rate 16 Blood Pressure [Ri ght Arm] 151/87 H Blood Pressure [Ri ght Upper Arm] Pulse Oximetry 98 Oxygen Delivery Me thod Room Air DS: Data Data Completed and Pending Labs on day of discharge: Labs from last 24 hours 04/16/25 04/15/25 04/15/25 06:01 Unknown 23:20 WBC 7.17 RBC 4.33 Hgb 12.2 Hct 37.7 MCV 87 MCH 28 MCHC 32 RDW Coeff of Martine Plt Count 305 Neut % (Auto) Lymph % (Auto) [place] % (Auto) Eos % (Auto) Baso % (Auto) Neut # (Auto) Lymph # (Auto) [place] # (Auto) Eos # (Auto) Baso # (Auto) Abs Immat Gran (auto) Imm/Tot Granulo (auto) Sodium 138 Potassium 3.4 L Chloride 104 Carbon Dioxide 24 Anion Gap 10 BUN 6 Creatinine 1.0 Estimated Creat Clear 67.72 Estimated GFR 83 Glucose 90 Lactate Calcium 8.2 L Phosphorus Magnesium Total Bilirubin AST ALT Alkaline Phosphatase Total Protein Albumin Lipase Urine Opiates Screen POSITIVE A Ur Oxycodone Screen Negative Urine Methadone Screen Negative Ur Barbiturates Screen Negative U Tricyclic Antidepress Negative Ur Phencyclidine Scrn Negative Ur Amphetamines Screen Negative U Methamphetamines Scrn Negative U Benzodiazepines Scrn Negative Urine Cocaine Screen Negative U Marijuana (THC) Screen Negative Ur Drug Screen Comment See Note Ethyl Alcohol < 0.01 C.trachomatis Ampl DNA N.gonorrhoeae Ampl DNA Lab Acknowledgement New Spec Needed A 04/15/25 04/15/25 04/15/25 22:47 22:35 17:45 WBC 7.81 RBC 5.01 Hgb 14.0 Hct 43.2 MCV 86 MCH 28 MCHC 32 RDW Coeff of Martine 11.9 Plt Count 320 Neut % (Auto) 72.0 Lymph % (Auto) 18.4 L [place] % (Auto) 7.4 Eos % (Auto) 0.9 Baso % (Auto) 0.3 Neut # (Auto) 5.62 Lymph # (Auto) 1.40 [place] # (Auto) 0.60 Eos # (Auto) 0.07 Baso # (Auto) 0.02 Abs Immat Gran (auto) 0.08 Imm/Tot Granulo (auto) 1.0 Sodium 140 Potassium 3.4 L Chloride 99 Carbon Dioxide 28 Anion Gap 13 BUN 9 Creatinine 1.2 Estimated Creat Clear 56.43 Estimated GFR 66 Glucose 93 Lactate 1.8 Calcium 9.2 Phosphorus 2.5 Magnesium 1.8 Total Bilirubin 0.7 AST 34 ALT 27 Alkaline Phosphatase 130 Total Protein 7.9 Albumin 4.6 Lipase 69 Urine Opiates Screen Ur Oxycodone Screen Urine Methadone Screen Ur Barbiturates Screen U Tricyclic Antidepress Ur Phencyclidine Scrn Ur Amphetamines Screen U Methamphetamines Scrn U Benzodiazepines Scrn Urine Cocaine Screen U Marijuana (THC) Screen Ur Drug Screen Comment Ethyl Alcohol C.trachomatis Ampl DNA NOT DETECTED N.gonorrhoeae Ampl DNA NOT DETECTED Lab Acknowledgement Test Added Discharge Plan Discharge Disposition: Home, Self-Care Date of Admission: 04/15/25 22:15 Attending Provider on Discharge: Yoli Marinelli Primary Care Provider: Alfred Pritchett Condition: Improved Anticipated Discharge Date/Time: 04/16/25 13:15 Discharge Medications: New omeprazole 20 mg capsule,delayed release(DR/EC) 20 mg PO DAILY Qty: 30 2RF Continued dextroamphetamine sulfate 10 mg capsule, extended release 20 mg PO DAILY hydroxyzine HCl 25 mg tablet 25 mg PO DAILY bupropion HCl 150 mg tablet extended release 24 hr 150 mg PO QAM fluoxetine 40 mg capsule 40 mg PO DAILY hydrocodone-acetaminophen 5-325 mg tablet 1 tab PO Q4-6H PRN (Reason: pain) Qty: 10 0RF rizatriptan 10 mg tablet 10 mg PO BID PRN Rx Instructions: Take 10 mg by mouth 2 times daily if needed for Migraine. One tablet at onset of a migraigne. Give at minimum 2hrs apart. Max Dose: 30mg per 24hrs. sumatriptan succinate 25 mg tablet 25 mg PO Q2H PRN Rx Instructions: Take 25 mg at the onset of your migraine, repeat in 2 hours times 1 if he adache is not resolved. Give at minimum 2hrs apart. Max Dose: 200mg per 24hrs. ondansetron HCl 4 mg tablet 4 mg PO Q8-12H PRN (Reason: nausea and vomiting) Qty: 7 0RF Discontinued ketorolac 10 mg tablet 10 mg PO TID 5 Days Qty: 15 0RF Discharge Orders: Discharge Order (Routine); Ordered 04/16/25 Ordered By: Yoli Marinelli Patient Education: Omeprazole (By mouth), Kidney Stones (IP) Additional Instructions: Need to follow-up with primary care as an outpatient Activity Level: No Restrictions Discharge Diet: Regular Follow Up Appointments: Alfred Pritchett MD [Primary Care Provider, Family Practice] Forms: SeptRx Info Instructions
--- NOTE | 2025-04-16 13:26 | PC.NURSE ---
Patient alert and oriented and vitally stable. Presented with malaise in the morning. Able to move herself independently but wide movements caused an increase of nausea. Severe to moderate nausea while at rest. Vomited twice in the morning after attempting Tylenol administration by mouth. Emesis was a clear liquid light yellow. Reporting stabbing pain of the chest and upper abdomen. MD alerted and put on NPO with endoscopy scheduled. Endoscopy showed no abnormal findings. IV in left arm patent and was running IV fluid maintenance.?She later improved dramatically and over a short period of time. The patient then initiated a discussion on discharge and it became clear that she had intent to leave. After coordinating with the MD discharge papers were created and given over to the patient before leaving the hospital. She appeared to be in good health at this time.
== END 2025-04-16 13:10 | disposition home or self-care (01) ==
LOC: ED 21:44 → MEDSURG 22:16
PROVIDERS: Physician Assistant; Admitting Provider Family Medicine; Emergency Provider Emergency Medicine; PCP Family Medicine; Visit Provider Family Medicine
DX: R11.10 Vomiting, unspecified (principal); E86.0 Dehydration; N20.0 Calculus of kidney; E87.6 Hypokalemia; R10.9 Unspecified abdominal pain; R07.89 Other chest pain; R11.0 Nausea; R30.0 Dysuria; R35.0 Frequency of micturition; F41.9 Anxiety disorder, unspecified; F32.A Depression, unspecified; F90.9 Attention-deficit hyperactivity disorder, unspecified type; K21.9 Gastro-esophageal reflux disease without esophagitis; Z87.440 Personal history of urinary (tract) infections
CPT/HCPCS: 00731; 36415; 43239; 71260; 74177; 80048; 80053; 80306; 82077; 83605; 83690; 83735; 84100; 85025; 85027; 87491; 87591; 88305; 93005; 94761; 99284; 99285; A9270; G0378; J1630; J2405; J2470; J2704; J2765; J3490; J7030; Q9967

== ENCOUNTER 2025-05-15 16:34 | Emergency (ER) | payer BC, MEDICAID, SELFPAY ==
--- OUTSIDE RECORDS SUMMARY | 2025-05-15 16:35 | XMS_ITS | Clinical Summary ---
Author Organization [facility] Address [facility] [place] [address] Care Team Providers Care Developer Programmer Name Role Phone Alfred Pritchett MD Primary Care Provider [phone] Allergies Active Allergy Reactions Criticality Noted Date [...] Cough. 100 mL 03/26/20 25 Active dextroamphetamine CONTROLLED RELEASE (Dexedrine) 10 mg capsuleIndication s:Attention deficit hyperactivity disorder (ADHD), predominantly inattentive type Take 2 Capsules (20 mg) by mouth once daily. 60 Capsule 04/14/20 25 025 Active Problems Problem Noted Date Diagnosed Date [...] Encounters Date Type Department Care Team Description 05/04/2025 2:00 PM CDT Office Visit [facility] [address] [place] [address] Yuliya Leyva MD Consult (Left side lump) 05/04/2025 Travel 04/29/2025 Travel 04/20/2025 Travel 04/17/2025 Lab Requisition [facility] [phone] Dez Abreu MD 04/16/2025 Orders Only [facility] Scanner 1 scan: (1-Ord) [facility], UPPER GI, 04/16/2025 04/15/2025 Orders Only [facility] Scanner 1 scan: (1-Ord) [place], CT CHEST ABODMEN PELV W CON, 04/15/2025 04/15/2025 Nurse Triage [facility] [address] [place] [address] Alfred Pritchett MD Vomiting 04/14/2025 2:40 PM CDT Office Visit [facility] [address] [place] [address] Bonifacio Anthony MD Hospital F/U 04/14/2025 Orders Only [facility] Scanner 1 scan: (1-Ord) [facility], ABDOMEN PELVIS WO CON , 04/14/2025 04/14/2025 Orders Only [facility] Scanner 1 scan: (1-Ord) [place], CHEST W CON, 04/14/2025 04/14/2025 Travel 04/10/2025 Travel 04/09/2025 Telephone [facility] [address] [place] [address] Kim Patel NP Refill Request (dextroamphetamine CONTROLLED RELEASE (Dexedrine) 10 mg capsule ) 03/26/2025 9:15 AM CDT Office Visit [facility] [address] [place] [address] Alfred Pritchett MD Abdominal Pain (Upper left abdominal pain); Results (Go over ultrasound results); Cough (2.5 weeks of coughing - tessalon didn't help/COVID-19 testing negative x3) 03/26/2025 Travel 03/17/2025 Telephone [facility] [address] [place] [address] Alfred Pritchett MD Results (Ultrasound results) 03/16/2025 3:15 PM CDT Ancillary Procedure [address] [address] 03/15/2025 3:15 PM CDT Office Visit [address] [address] Kim Patel NP Follow Up; Medication Management 03/15/2025 Telephone [facility] [address] [place] [address] Kim Patel, GUS Medication Management (dextroamphetamine ) 03/15/2025 Travel 03/05/2025 12:40 PM CDT Office Visit [facility] [address] [place] [address] Alfred Pritchett MD Lump (Lump left side of rib area, under breast/Pain x 2 days) 03/05/2025 Travel from Last 3 Months Immunizations Immunization Administration Dates Next Due AMB Influenza, IIV3 (Age >=3 years)(Flu Clinic Only) 09/06/2011,09/20/2008 AMB Influenza, IIV4 PF (=>6 mos Flulaval,Fluzone Fluarix)(Flu Clinic Only) 09/06/2016,08/13/2014 COVID-19 vaccine (Rezzie NTDujour App 30mcg/0.3mL) 12YO+ BIVALENT PF, MDV 09/19/2022 DTaP 03/19/2006 SUlT-LutD-AHS (Pediarix) 06/15/2005,04/13/2005,0 02/13/2005 DTaP-IPV (Kinrix) 12/20/2009 HIB [...] Sex Assigned at Female 12/02/2021 8:02 PM NETWORK SYSTEMS CONSULTANT Legal Sex Female 7:07 AM NETWORK SYSTEMS CONSULTANT Gender Identity Female 12/02/2021 8:02 PM NETWORK SYSTEMS CONSULTANT Sexual Orientation Lesbian or Seaman 12/02/2021 8: 02 PM NETWORK SYSTEMS CONSULTANT Obstetrics History Para Term AB IAB SAB Ectopic Multiple Livin g Live Births 0 0 0 0 0 0 0 0 0 0 0 Last Filed Vital Signs Vital Sign Reading Time Taken Comments Blood Pressure 111/75 05/04/2025 1:59 PM CDT Pulse 98 05/04/2025 1:59 PM CDT Temperature 37.2 C (98.9 F) 04/14/2025 2:35 PM CDT Respiratory Rate 18 03/19/2024 2:57 PM CDT Oxygen Saturation 97% 05/04/2025 1:59 PM CDT Inhaled Oxygen Concentration - - Weight 104.1 kg (229 lb 8 oz) 05/04/2025 1:59 PM CDT Height 156.2 cm (5' 1.5) 03/26/2025 9:19 AM CDT Body Mass Index - - Plan of Treatment Upcoming Encounters Date Type Department Care Team (Late st Contact Info) Description 05/17/2025 8:00 AM CDT Office Visit [facility] at [facility] [address] [facility] [place] [address] Yuliya Leyva MD [address] [address] 06/09/2025 3:15 PM CDT Office Visit [facility] [address] [place] [address] Kim Patel NP [address] [place] [address] Health Maintenance Due Date Last Done Comments [...] Procedure Name Priority Date/Time Associated Diagnosis Comments LAB TRACKING EVENT Routine 04/16/2025 10 :38 AM CDT PATH TISSUE EXAM Routine 04/16/2025 10:3 8 AM CDT SCAN-ENDOSCOPY 04/16/2025 12:00 AM CDT SCAN-CT INTERPRETATION 04/15/2025 12:00 AM CDT SCAN-CT INTERPRETATION 04/14/2025 12:00 AM CDT SCAN-CT INTERPRETATION 04/14/2025 12:00 AM CDT US ABDOMEN SOFT TISSUE Routine 03/16/2025 3:17 PM CDT Abdominal wall pain in left upper quadrant LC HIV-1/O/2, 4TH GENERATION Routine 02/22/2023 3:37 PM CDT Screening for HIV (human immunodeficiency virus) LC HCV ANTIBODY RFX TO QUANT PCR Routine 02/22/2023 3:37 PM CDT Need for hepatitis C screening test from Last 3 Months or Most Recently Relevant to Health Maintenance Results * LAB TRACKING EVENT (04/16/2025 10:38 AM CDT) Other (Other) Client Collect / Unknown 04/16/2025 10:38 AM CDT 04/17/2025 10:41 AM CDT us Dez Abreu MD LAB BILL ONLY Final Res ult [facility] [address] [place] [address], * PATH TISSUE EXAM (04/16/2025 10:38 AM CDT) Case Report Pathology Report Case: [id number] Authorizing Provider: Dez Abreu MD Collected: 04/16/2025 1038 Ordering Location: [facility] Received: 04/19/2025 0808 Pathologist: Enzo Meyer MD Specimens: A) - Duodenum Biopsy B) - Stomach Biopsy C) - Distal Esophagus Biopsy 04/20/2025 10:07 AM T [facility] Final Diagnosis A) DUODENUM, FIRST PORTION, BIOPSY: 1. Normal duodenal mucosa 2. Negative for celiac disease and other enteropathy B) STOMACH, RANDOM, BIOPSY: 1. Normal gastric antral and body mucosae 2. Negative for Helicobacter C) ESOPHAGUS, DISTAL, BIOPSY: 1. Normal esophageal squamous mucosa 2. Negative for reflux changes and eosinophilic esophagitis 3. Negative for columnar mucosa 04/20/2025 10:07 AM [facility] at [address] [place] [address] Clinical Information Ms. Dodson is a 19 y.o. who presents with epigastric tatiana pain, nausea with vomiting, and hematemesis. EGD reveals a normal esophagus, normal stomach, and normal examined duodenum. 04/20/2025 10:07 AM [facility] Gross Description A) Received in formalin are 6 whatley mucosal fragments ranging from 2 mm to 5 mm in greatest dimension, which are entirely submitted in one cassette. It is labeled with the patient's name and designated duodenum, first portion. B) Received in formalin are 6 whatley mucosal fragments ranging from 3 mm to 6 mm in greatest dimension, which are entirely submitted in one cassette. It is labeled with the patient's name and designated stomach, random. C) Received in formalin are 4 whatley mucosal fragments averaging 3 mm in greatest dimension, which are entirely submitted in one cassette. It is labeled with the patient's name and designated esophagus, distal. Erinn Bedoya Noon 04/19/2025 8:11 AM 04/20/2025 10:07 AM [facility] Microscopic Description The final diagnosis is based on microscopic examination of appropriate sections of all specimens. 04/20/2025 10:07 AM [facility] Additional Information Interpreted at [facility] - [address], [place] [address] 04/20/2025 10:07 AM [facility] Other (Duodenum Biopsy) 04/16/2025 10:38 AM CDT 04/19/2025 8:08 AM CDT Specimen (specimen) (Stomach Biopsy) 04/16/2025 10:38 AM CDT 04/19/2025 8:08 AM CDT Specimen (specimen) (Distal Esophagus Biopsy) 04/16/2025 10:38 AM CDT 04/19/2025 8:08 AM CDT Dez Abreu MD PATHOLOGY/CYTOLOGY Final Result [facility] [address] [place] [address], [place] * SCAN-ENDOSCOPY (04/16/2025 12:00 AM CDT) us Scanner OTHER Final Result * SCAN-CT INTERPRETATION (04/15/2025 12:00 AM CDT) Only the most recent of3 resultswithin the time period is included. Anatomical Region Laterality Modality Other us Scanner OTHER Final Result * US ABDOMEN SOFT TISSUE (03/16/2025 3:17 [...] For Patients: As a result of the 21st Century Cures Act, medical imagingexams and procedure reports [...] MD @ 03/16/2025 10:22:12 PM (Electronically Signed) Alfrde Pritchett MD Final Resu lt * LC HCV ANTIBODY RFX TO QUANT PCR (02/22/2023 3:37 PM CDT) Pathologist [facility] HCV Ab Non Reactive Non Reactive 02/26/2023 10:06 PM CDT [facility] ([facility]) Blood BLOOD SPECIMEN / Unknown Venipuncture / Unknown 02/22/2023 3:37 PM CDT 02/22/2023 3:39 PM CDT Narrative [facility] ([facility]) - 02/26/2023 10:06 PM CDT Performed at: [address] [place] [id number] Ice Seller: Kwabena France MD, Phone: [phone] Alfred Pritchett MD LABORATORY Final Resu lt [facility] ([facility]) [address] [place] [address], [place] * LC HIV-1/O/2, 4TH GENERATION (02/22/2023 3:37 PM CDT) Pathologist [facility] HIV Scr 4th Gen Non Reactive Non Reactive 02/26/2023 4:07 AM CDT [facility] ([facility]) Comment: HIV Negative HIV-1/HIV-2 antibodies and HIV-1 p24 antigen were NOT detected. There is no laboratory evidence of HIV infection. Blood BLOOD SPECIMEN / Unknown Venipuncture / Unknown 02/22/2023 3:37 PM CDT 02/22/2023 3:39 PM CDT Narrative [facility] ([facility]) - 02/26/2023 4:07 AM CDT Performed at: - [facility] [place], [place] [id number] Ice Seller: Kwabena France MD, Phone: [phone] us Alfred Pritchett MD LABORATORY Final Resu lt [facility] ([facility]) [address] [place] [address], from Last 3 Months or Most Recently Relevant to Health Maintenance [place] [address] [address] [place] [address] [facility] NONPROFIT INSURANCE [employer]UST [employer] NON-XCEL EMP [address] [place] [address] [address] [id number] [place] [address] Care Teams Developer Programmer Relationship Specialty Start Date End Date Alfred Pritchett MD [address] [place] [address] [facility] - General 04/19/06
--- OUTSIDE RECORDS SUMMARY | 2025-05-15 16:35 | XMS_ITS | Clinical Summary ---
Author Organization [facility] Address [address] , [address] [place] [address] Phone Care Team Providers Care Insemination Worker Name Role Phone Colette THEODORE, Meramaged Granger [phone] Conditions or Problems Problem Name Problem Code Onset Date Status Entry Date Provider Comment Standard Description Annotate Migraine 99777144 (SNOMED CT) Active Marquis Mckeon MD Migraine Headache, post traumatic 51621790 (SNOMED CT) Active Marquis Mckeon MD Posttraumatic headache Dizziness [id number] (SNOMED CT) Active Marquis Mckeon MD Dizziness Medications Medication Instructions Start Date Stop Date Generic Name ND Provider PROPRANOLOL HCL 20 MG TABS 1 tablet by mouth twice a day 3 propranolol 59449019952 Marquis Mckeon MD RIZATRIPTAN BENZOATE 10 MG TABS TAKE ONE TABLET BY MOUTH AT ONSET OF MIGRAINE AND EVERY 2 HOURS NEEDED. MAX 2 TABLETS IN 24 HOURS 3 rizatriptan [id number] Marquis Mckeon MD MECLIZINE HCL 25 MG TABS 1 tablet by mouth three times a day as directed For dizziness 3 meclizine [id number] Marquis Mckeon MD Medications Administered No information [...] Code Procedure Name Date Entry Date [facility]-[id number] Documentation of current medicatio ns [facility]-[id number] Documentation of current medicatio ns [facility]-[id number] Documentation of current medicatio ns [id number] Documentation of current medicatio ns [id number] MRI-Brain W/WO [id number] MRA-Neck W/WO [id number] MRA-Head W/O ORDERS Other Referral Vital Signs No information available. Immunizations No information available. Advance Directives No information available.
[2025-05-15 16:42] VITALS: BP 133/85; PULSE 105; RESP 16; TEMP 36.4; O2SAT 96; BMI 42.9
--- NOTE | 2025-05-15 16:57 | CRLHL7_ITS ---
For Patients: As a result of the Cures Act, medical imaging exams and procedure reports are released immediately into your electronic medical record. You may view this report before your referring provider. If you have questions, please contact your health care provider. INDICATION: Injury. FINDINGS: No bone or joint abnormality is identified. There is no fracture, dislocation or radiodense foreign body. There is likely a laceration along the dorsum of the forefoot. Dictated by Giovani Murillo MD @ 05/15/2025 5:23:34 PM (Electronically Signed)
--- NOTE | 2025-05-15 16:58 | ED.LOWEXIN ---
HPI - Extremity Injury (Lower) General Chief Complaint: Extremity Pain/Injury, Lower Stated Complaint: Potential Right toe fracture Time Seen by Provider: 05/15/25 16:35 History of Present Illness HPI Narrative: This 19-year-old female comes in with an injury to her right foot. She states that just prior to arrival she accidentally dropped a 5 lb container of root beer which landed on distal portion of her 1st metatarsal of the right foot. She does not report any other injury. She is otherwise in good health. Related Data Home Medications ?Medication ?Instructions ?Recorded ?Confirmed bupropion HCl 150 mg 24 hr tablet, 150 mg PO QAM 06/21/23 05/15/25 extended release dextroamphetamine sulfate 10 mg 20 mg PO DAILY 06/21/23 05/15/25 capsule,extended release fluoxetine 40 mg capsule 40 mg PO DAILY 06/21/23 05/15/25 hydroxyzine HCl 25 mg tablet 25 mg PO DAILY 06/21/23 05/15/25 rizatriptan 10 mg tablet 10 mg PO BID PRN 04/16/25 05/15/25 sumatriptan succinate 25 mg tablet 25 mg PO Q2H PRN 04/16/25 05/15/25 acetaminophen 500 mg tablet 1,000 mg 05/12/25 meclizine 25 mg tablet 25 mg 05/12/25 meloxicam 15 mg tablet mg PRN 05/12/25 propranolol 20 mg tablet mg 05/12/25 Previous Rx's ?Medication ?Instructions ?Recorded hydrocodone 5 mg-acetaminophen 325 1 tab PO Q4-6H PRN pain #10 tabs 25 mg tablet ondansetron HCl 4 mg tablet 4 mg PO Q8-12H PRN nausea and 04/14/25 vomiting #7 tabs omeprazole 20 mg capsule,delayed 20 mg PO DAILY #30 caps 04/16/25 release Allergies Allergy/AdvReac Type Severity Reaction Status Date / Time escitalopram (From [facility]) Allergy Mild Headache Verified 05/15/25 16:41 adhesive AdvReac Mild Rash Verified 05/15/25 16:41 Review of Systems Status of ROS: Reports: 10 or more systems reviewed and unremarkable except as noted in History and below Narrative: Constitutional: No fevers, no weight gain or loss. Eyes: No discharge. No vision changes. HENT: No congestion, no sore throat, no ear pain. Cardiovascular: No chest pain, no palpitations. Respiratory: No shortness of breath, no wheezes, no cough. Gastrointestinal: No abdominal pain, no vomiting, no diarrhea. Genitourinary: No dysuria, no hematuria. Musculoskeletal: Right foot injury as described above. Skin: No rashes, no pruritis. Neurological: No dizziness, weakness, sensory change, speech change. Endo/Heme/Allergies: No bruising or bleeding. No polydipsia. Pysch: no suicidality, no anxiety, no insomnia. All other systems reviewed and are negative. [facility] Medical History (Updated 05/15/25 @ 17:30 by Clyde Wetzel MD) ADHD (attention deficit hyperactivity disorder) ?F90.9 - Attention-deficit hyperactivity disorder, unspecified type (ICD-10) Depression ?F32.A - Depression, unspecified (ICD-10) Adjustment disorder with mixed disturbance of emotions and conduct ?F43.25 - Adjustment disorder with mixed disturbance of emotions and conduct (ICD-10) Hirsutism ?L68.0 - Hirsutism (ICD-10) GERD (gastroesophageal reflux disease) ?K21.9 - Gastro-esophageal reflux disease without esophagitis (ICD-10) Anxiety ?F41.9 - Anxiety disorder, unspecified (ICD-10) Obesity ?E66.9 - Obesity, unspecified (ICD-10) PCOS (polycystic ovarian syndrome) ?E28.2 - Polycystic ovarian syndrome (ICD-10) Kidney stone ?N20.0 - Calculus of kidney (ICD-10) Vomiting ?R11.10 - Vomiting, unspecified (ICD-10) Kidney stone on left side ?N20.0 - Calculus of kidney (ICD-10) Dehydration ?E86.0 - Dehydration (ICD-10) Acute hypokalemia ?E87.6 - Hypokalemia (ICD-10) Chest pain ?R07.9 - Chest pain, unspecified (ICD-10) Kidney stone on left side ?N20.0 - Calculus of kidney (ICD-10) IUD complication ?T83.9XXA - Unspecified complication of genitourinary prosthetic device, implant and graft, initial encounter (ICD-10) Family History Family/Other Heart disease Stroke High blood pressure Diabetes Alcohol dependence Aunt Breast cancer High cholesterol Grandmother Ovarian cancer High blood pressure High cholesterol Mother High cholesterol FH: mental illness Alcohol dependence Drug dependence Father Alcohol dependence Drug dependence Social History What is your current living situation?: I presently have a place to live Problems where you live: no known problems Problems where you live details: n/a In the past 12 months, utilities in danger of being shut off: no In past 12 months, lack of transportation kept you from medical appts, meetings, work, or getting things needed for daily living: no In the past 12 mos, have been you worried that your food would run out before you had money to buy more?: never true In the past 12 mos, the food you bought just didn't last and you didn't have money to buy more?: never true Smoking Status: Never smoker Do you use any of these nicotine containing products: None Second hand tobacco smoke exposure: No How often do you have a drink containing alcohol: never AUDIT-C Alcohol total score: 0 Non-prescribed substance use: denies use How often does anyone, including family, friends and others, physically hurt you: never How often does anyone, including family, friends and others, insult or talk down to you: never How often does anyone, including family, friends and others, threaten you with harm: never How often does anyone, including family, friends and others, scream or curse at you: never service: No Exam Narrative: Exam Narrative: Constitutional: Well-developed, well-nourished, no acute distress. HEENT: Normocephalic, atraumatic. Neck: Normal range of motion. Nontender. Supple. Heart: Intact distal pulses. Lungs: No chest discomfort. No wheezes, rhonchi, or rales. Abdomen: Nontender. Back: Normal range of motion. Extremities: Mild bruising and swelling over the dorsal aspect of the distal portion of the right 1st metatarsal. No sign of deformity. Skin: Intact. No rash. Warm. No erythema or pallor. Neurologic: No altered sensation. No weakness. Alert and oriented. Psychiatric: No suicidality. No anxiety or depression. No insomnia. Nursing notes and vitals signs are reviewed. Const: Vital Signs, click to edit/add: Vital Signs - 24 hr 05/15/25 16:42 Temperature 97.6 F Pulse Rate [Pulse Oximeter] 105 H Respiratory Rate 16 Blood Pressure [Ri ght Upper Arm] 133/85 Pulse Oximetry 96 Oxygen Delivery Me thod Room Air Course Vital Signs Vital signs: Initial Vital Signs Temperature 97.6 F 05/15/25 16:42 Temperature Source Temporal Artery Scan 05/15/25 16:42 Pulse Rate 105 H 05/15/25 16:42 Respiratory Rate 16 05/15/25 16:42 Blood Pressure 133/85 05/15/25 16:42 Blood Pressure Mean 101 05/15/25 16:42 Pulse Oximetry 96 05/15/25 16:42 Oxygen Delivery Method Room Air 05/15/25 16:42 Vital Signs Temperature 97.6 F 05/15/25 16:42 Pulse Rate 105 H 05/15/25 16:42 Respiratory Rate 16 05/15/25 16:42 Blood Pressure 133/85 05/15/25 16:42 Pulse Oximetry 96 05/15/25 16:42 Oxygen Delivery Method Room Air 05/15/25 16:42 Temperature 97.6 F 05/15/25 16:42 Pulse Rate 105 H 05/15/25 16:42 Respiratory Rate 16 05/15/25 16:42 Blood Pressure 133/85 05/15/25 16:42 Pulse Oximetry 96 05/15/25 16:42 Oxygen Delivery Method Room Air 05/15/25 16:42 MDM - Extremity Injury (Lower) MDM Narrative Medical decision making narrative: This 19-year-old female comes in for evaluation of an injury to her right foot. X-ray images are obtained and show no sign of fracture or dislocation. She does have some mild bruising and swelling around this area from a contusion. She is able to ambulate. I recommended [id number] medicines as needed and directed. She can increase activity as tolerated. Imaging Data XR R Foot: Radiologist's impression: No bone or joint abnormality is identified. There is no fracture, dislocation or radiodense foreign body. There is likely a laceration along the dorsum of the forefoot. Discharge Plan Discharge Clinical Impression: Contusion of foot, right Patient Disposition: Home, Self-Care Condition: Stable Additional Instructions: Use [id number]-[id number] medicines as needed and directed. Increase activity as tolerated. Follow up with MD return if worsening. Prescriptions: No Action dextroamphetamine sulfate 10 mg capsule, extended release 20 mg PO DAILY hydroxyzine HCl 25 mg tablet 25 mg PO DAILY bupropion HCl 150 mg tablet extended release 24 hr 150 mg PO QAM fluoxetine 40 mg capsule 40 mg PO DAILY hydrocodone-acetaminophen 5-325 mg tablet 1 tab PO Q4-6H PRN (Reason: pain) Qty: 10 0RF rizatriptan 10 mg tablet 10 mg PO BID PRN Rx Instructions: Take 10 mg by mouth 2 times daily if needed for Migraine. One tablet at onset of a migraigne. Give at minimum 2hrs apart. Max Dose: 30mg per 24hrs. sumatriptan succinate 25 mg tablet 25 mg PO Q2H PRN Rx Instructions: Take 25 mg at the onset of your migraine, repeat in 2 hours times 1 if headache is not resolved. Give at minimum 2hrs apart. Max Dose: 200mg per 24hrs. omeprazole 20 mg capsule,delayed release(DR/EC) 20 mg PO DAILY Qty: 30 2RF ondansetron HCl 4 mg tablet 4 mg PO Q8-12H PRN (Reason: nausea and vomiting) Qty: 7 0RF meloxicam 15 mg tablet PRN Rx Instructions: Take 1 Tablet (15 mg) by mouth once daily. Take as needed for headache. This is Workers Compensation. acetaminophen 500 mg tablet 1,000 mg Rx Instructions: Take 1,000 mg by mouth every 6 hours if needed for Pain or Headache. Max acetaminophen dose: 4000mg in 24 hrs. meclizine 25 mg tablet 25 mg Rx Instructions: 1 tablet by mouth three times a day as directed For dizziness propranolol 20 mg tablet Rx Instructions: Take 1 Tablet (20 mg) by mouth two times daily. Follow Up/Referrals: Alfred Pritchett MD [Primary Care Provider, Family Practice] Stand Alone Forms: [employer] Info Instructions
--- OUTSIDE RECORDS SUMMARY | 2025-05-15 17:17 | XMS_ITS | Clinical Summary ---
Author Organization [facility] Address [address] , [address] [place] [address] Phone Care Team Providers Care Paint Specialist Name Role Phone Colette THEODORE, Meramaged Granger [phone] Conditions or Problems Problem Name Problem Code Onset Date Status Entry Date Provider Comment Standard Description Annotate Migraine 61888055 (SNOMED CT) Active Marquis Mckeon MD Migraine Headache, post traumatic 40201640 (SNOMED CT) Active Marquis Mckeon MD Posttraumatic headache Dizziness 665493729 (SNOMED CT) Active Marquis Mckeon MD Dizziness Medications Medication Instructions Start Date Stop Date Generic Name ND Provider PROPRANOLOL HCL 20 MG TABS 1 tablet by mouth twice a day 3 propranolol [id number] Marquis Mckeon MD RIZATRIPTAN BENZOATE 10 MG TABS TAKE ONE TABLET BY MOUTH AT ONSET OF MIGRAINE AND EVERY 2 HOURS NEEDED. MAX 2 TABLETS IN 24 HOURS 3 rizatriptan [id number] Marquis Mckeon MD MECLIZINE HCL 25 MG TABS 1 tablet by mouth three times a day as directed For dizziness 3 meclizine [id number] Marquis Mckeon MD Medications Administered No information [...] Procedures Code Procedure Name Date Entry Date [facility]-[id number] Documentation of current medicatio ns [facility]-[id number] Documentation of current medicatio ns [facility]-[id number] Documentation of current medicatio ns [facility]-[id number] Documentation of current medicatio ns [id number] MRI-Brain W/WO [id number] MRA-Neck W/WO [id number] MRA-Head W/O ORDERS Other Referral Vital Signs No information available. Immunizations No information available. Advance Directives No information available.
== END 2025-05-15 17:50 | disposition home or self-care (01) ==
PROVIDERS: Emergency Provider Emergency Medicine Emergency Medical Services; PCP Family Medicine
DX: S90.31XA Contusion of right foot, initial encounter (principal); W20.8XXA Other cause of strike by thrown, projected or falling object, initial encounter
CPT/HCPCS: 73630; 99283; 99284

== ENCOUNTER 2025-05-17 06:34 | Day surgery (SDC) | payer BC, MEDICAID, SELFPAY ==
[2025-05-17 07:16] LABS: Ur HCG Qualitative* Negative (Negative)
[2025-05-17 07:18] VITALS: BMI 43.3
[2025-05-17 07:20] VITALS: BP 114/67; PULSE 84; RESP 20; TEMP 36.4; O2SAT 98
[2025-05-17] MEDS: SODIUM CHLORIDE 0.9 % (FLUSH) 10 ML SYRINGE IVF (07:31)
[2025-05-17] MEDS: LACTATED RINGERS 1000 ML 1,000 ML 100 ML IV (07:31)
--- NOTE | 2025-05-17 08:03 | SUR.PREOP ---
Pt decided she did not want to proceed with planned surgery. Dr. Grider informed. Pt will rescheduled at a future date
--- NOTE | 2025-05-17 08:05 | SUR.PREOP ---
pt left at 8:00am
== END 2025-05-17 08:09 | disposition home or self-care (01) ==
PROVIDERS: Anesthesiology; PCP Family Medicine; Visit Provider Surgery
DX: Z53.20 Procedure and treatment not carried out because of patient's decision for unspecified reasons (principal); R22.2 Localized swelling, mass and lump, trunk
CPT/HCPCS: 81025; J7120

== ENCOUNTER 2025-05-20 10:00 | Day surgery (SDC) | payer BC, MEDICAID, SELFPAY ==
[2025-05-20] MEDS: SODIUM CHLORIDE 0.9 % (FLUSH) 10 ML SYRINGE IVF (10:30)
[2025-05-20] MEDS: LACTATED RINGERS 1000 ML 1,000 ML 100 ML IV (10:30)
[2025-05-20 10:31] VITALS: BP 124/67; PULSE 84; RESP 16; TEMP 36.4; O2SAT 97; BMI 43.3
[2025-05-20 11:12] LABS: HCG Qualitative Serum* Negative (Negative)
--- NOTE | 2025-05-20 11:15 | CRLHL7_ITS ---
For Patients: As a result of the Century Cures Act, medical imaging exams and procedure reports are released immediately into your electronic medical record. You may view this report before your referring provider. If you have questions, please contact your health care provider. ULTRASOUND-GUIDED LEFT UPPER ABDOMINAL WALL LIPOMA WIRE LOCALIZATION CLINICAL HISTORY: Palpable subcutaneous lipoma COMPARISON STUDIES: CT 04/15/2025, ultrasound [facility] TECHNIQUE: Real-time ultrasound with image documentation was used for targeting the left upper abdominal wall lesion. Ultrasound guidance used for placing a 7 cm Kopan`s wire through the lesion. CONSENT and TIME OUT: The procedure, risks, and alternatives were explained to the patient and a consent was signed. [place] Protocol was followed including pre-procedure verification that relevant information/documentation was available, reviewed and properly matched to the patient; consent accurate and complete; and equipment and supplies available. Time Out was conducted just prior to starting procedure to verify the four required elements: patient identity, correct side/site marked (if applicable), procedure, relevant images/results properly labeled and displayed (if applicable). PROCEDURE: The patient was positioned supine on the ultrasound table. The left upper abdominal wall skin was prepped and draped in the usual sterile fashion. 1 percent lidocaine used for local anesthesia. IMPRESSION: Ultrasound-guided wire localization of a deep subcutaneous lipoma in the left upper abdominal wall for surgical excision. Dictated by Juan M Oliver MD @ 05/20/2025 4:52:15 PM (Electronically Signed)
[2025-05-20] MEDS: LIDOCAINE 1%-EPI 1:100,000 20 ML INFILTRATI (11:40)
--- NOTE | 2025-05-20 11:52 | P.GSOP_ITS ---
Operative Note Date of procedure: 05/20/25 Pre-op diagnosis: Abdominal wall mass Post-op diagnosis: same Type of Procedure: Excision 6 cm abdominal wall mass with pre-operative wire localization. Indications: The patient is a 19-year-old with a left-sided upper /lower chest mass which has been present for several months. The area is painful and this prompted her to be evaluated. On ultrasound she was found to have the mass in the subcutaneous tissue measuring up to 2.8 cm. This mass was not palpable however. After discussion with Radiology, it appears as though the mass was encapsulated in may even be subfascial. I recommended excision in the OR with preoperative wire localization. The patient agreed to proceed. Procedure Description: After discussing the risks and benefits of the procedure, the patient signed informed consent.? The operative site was marked and the patient was brought to the operating room and placed on the operating table in supine position.? Care was taken to pad the patient's pressure points.?? The patient was then given sedation by anesthesia.?? The operative site was then prepped and draped in the usual sterile fashion.? A time-out was then performed. Local anesthetic was injected into the skin and subcutaneous tissue overlying the area that was marked preoperatively by Radiology. The wire was just lateral to this. Incision was then created and dissection was taken down through the subcutaneous fat. A capsule was encountered and this appeared to contain the wire. The wire was delivered through the incision. The mass was palpable in the subcutaneous tissue. It felt rubbery in nature. The capsule was not well- defined, and therefore this was carefully excised with a combination of cautery and sharp dissection with an iris scissors to ensure the area was completely removed and avoid entering the capsule. This appeared to extend down to but not in to the lower chest/ upper abdominal wall fascia. The fatty mass was removed and sent to pathology. The wound was examined for hemostasis which was excellent. The subcutaneous space which had been created in removal of the mass was closed with 2-0 Vicryl interrupted sutures. 3-0 Vicryl dermal sutures were then placed followed by 4-0 Monocryl running subcuticular suture. Glue was then applied. ? The patient was then woken and transported to the recovery area in stable condition. ? The patient tolerated the procedure well. Findings: Encapsulated rubbery mass of the abdominal wall, excised with a rim of tissue, total area of excision, 5 x 6 x 1.5 cm Anesthesia: MAC Surgeon: Yuliya Leyva MD Estimated blood loss (mL): 1 Specimen: Other Additional Specimen Information: Left upper abdominal wall mass Condition: stable Disposition: same day
--- NOTE | 2025-05-20 11:52 | W.PM.H&PU ---
History & Physical Update History & Physical Update H&P Reviewed and patient assessed: No changes noted
[2025-05-20] MEDS: BUPIVACAINE 0.25% 30 ML INJECTION (12:40)
[2025-05-20 13:02] VITALS: BP 121/62; PULSE 81; RESP 16; TEMP 36.3; O2SAT 99
--- NOTE | 2025-05-20 13:02 | P.ANES_ITS ---
Anesthesia Charges Start Date/Time Anesthesia Start Date: 05/20/25 Anesthesia Start Time: 11:53 Stop Date/Time Anesthesia Stop Date: 05/20/25 Anesthesia Stop Time: 13:02 Coding CPT Codes CPT Codes: ANESTH SKIN EXT/PER/ATRUNK - 60460 ([id number]) P3 - PATIENT W/SEVERE SYS DISEASE, QK - NEUROSURGERY SPINE PHYSICIAN 2-4 CNCRNT ANES PROC, QX - BEATER OUT SVC W/ MD MED DIRECTION
--- NOTE | 2025-05-20 13:02 | W.ANESCHARGE ---
Anesthesia Charges Start Date/Time Anesthesia Start Date: 05/20/25 Anesthesia Start Time: 11:53 Stop Date/Time Anesthesia Stop Date: 05/20/25 Anesthesia Stop Time: 13:02 Coding CPT Codes CPT Codes: ANESTH SKIN EXT/PER/ATRUNK - 75093 ([id number]) P3 - PATIENT W/SEVERE SYS DISEASE, QK - CALLISTHENICS INSTRUCTOR 2-4 CNCRNT ANES PROC, QX - FAGOT HEATER HELPER SVC W/ MD MED DIRECTION
[2025-05-20 13:16] VITALS: BP 100/52; PULSE 82; RESP 16; O2SAT 98
--- NOTE | 2025-05-20 13:25 | P.ANES_ITS ---
Anesthesia Charges Start Date/Time Anesthesia Start Date: 05/20/25 Anesthesia Start Time: 11:53 Stop Date/Time Anesthesia Stop Date: 05/20/25 Anesthesia Stop Time: 13:02 Coding CPT Codes CPT Codes: ANESTH SKIN EXT/PER/ATRUNK - 06340 ([id number]) QK - EDUCATIONAL ASSISTANT TEACHER 2-4 CNCRNT ANES PROC, QX - HEAD WAITER SVC W/ MD MED DIRECTION, P3 - PATIENT W/SEVERE SYS DISEASE
--- NOTE | 2025-05-20 13:25 | W.ANESCHARGE ---
Anesthesia Charges Start Date/Time Anesthesia Start Date: 05/20/25 Anesthesia Start Time: 11:53 Stop Date/Time Anesthesia Stop Date: 05/20/25 Anesthesia Stop Time: 13:02 Coding CPT Codes CPT Codes: ANESTH SKIN EXT/PER/ATRUNK - 45329 ([id number]) QK - CAP MACHINE OPERATOR 2-4 CNCRNT ANES PROC, QX - JOURNEYMAN MEAT CUTTER SVC W/ MD MED DIRECTION, P3 - PATIENT W/SEVERE SYS DISEASE
[2025-05-20 13:30] VITALS: BP 96/64; PULSE 67; RESP 16; O2SAT 99
== END 2025-05-20 13:53 | disposition home or self-care (01) ==
PROVIDERS: Anesthesiology; PCP Family Medicine; Visit Provider Surgery
PROC: (CPT 22903; principal; 2025-05-20 12:00)
PROC: (CPT 22903; 2025-05-20 12:00)
DX: D17.1 Benign lipomatous neoplasm of skin and subcutaneous tissue of trunk (principal)
CPT/HCPCS: 22903; 00400; 10035; 36415; 84703; C1769; J0665; J1100; J1885; J2405; J2704; J3490; J7120

== ENCOUNTER 2025-05-28 21:21 | Emergency (ER) | payer BC, MEDICAID, SELFPAY ==
--- OUTSIDE RECORDS SUMMARY | 2025-05-28 21:23 | XMS_ITS | Clinical Summary ---
Author Organization [facility] Address [address] , [address] [place] [address] Phone Care Team Providers Care Asbestos Surveyor Name Role Phone Colette THEODORE, Meramaged Granger [phone] Conditions or Problems Problem Name Problem Code Onset Date Status Entry Date Provider Comment Standard Description Annotate Migraine 44871695 (SNOMED CT) Active Marquis Mckeon MD Migraine Headache, post traumatic 93224491 (SNOMED CT) Active Marquis Mckeon MD Posttraumatic headache Dizziness 378818983 (SNOMED CT) Active Marquis Mckeon MD Dizziness Medications Medication Instructions Start Date Stop Date Generic Name ND Provider PROPRANOLOL HCL 20 MG TABS 1 tablet by mouth twice a day 3 propranolol [id number] Marquis Mckeon MD RIZATRIPTAN BENZOATE 10 MG TABS TAKE ONE TABLET BY MOUTH AT ONSET OF MIGRAINE AND EVERY 2 HOURS NEEDED. MAX 2 TABLETS IN 24 HOURS 3 rizatriptan [id number] Marquis Mckeon MD MECLIZINE HCL 25 MG TABS 1 tablet by mouth three times a day as directed For dizziness 3 meclizine [id number] Marquis Mckeon MD Medications Administered No information [...] Procedures Code Procedure Name Date Entry Date [facility]-[id number] Documentation of current medicatio ns [facility]-[id number] Documentation of current medicatio ns [facility]-[id number] Documentation of current medicatio ns [facility]-[id number] Documentation of current medicatio ns [id number] MRI-Brain W/WO [id number] MRA-Neck W/WO [id number] MRA-Head W/O ORDERS Other Referral Vital Signs No information available. Immunizations No information available. Advance Directives No information available.
--- OUTSIDE RECORDS SUMMARY | 2025-05-28 21:24 | XMS_ITS | Clinical Summary ---
Author Organization [facility] Address [address] [place] [address] Care Team Providers Care Census Enumerator Name Role Phone Alfred Pritchett MD Primary Care Provider [phone] Allergies Active Allergy Reactions Criticality Noted Date [...] Encounters Date Type Department Care Team Description 05/20/2025 8:00 AM CDT Office Visit [facility] at [facility] [address] [facility] [place] [address] Yuliya Leyva MD 05/20/2025 Orders Only [facility] Scanner 1 scan: (1-Ord) [place], [place] GUIDED LT UPPER ABDOMINAL WALL LIPOMA WIRE LOCALIZATION, 05/20/2025 05/20/2025 Orders Only [facility] Scanner 1 scan: (1-Ord) [facility], EXCISION 6CM ABDOMINAL WALL MASS, 05/20/2025 05/20/2025 Lab Requisition [facility] [phone] Yuliya Leyva MD 05/20/2025 Travel 05/17/2025 Telephone [facility] [address] [place] [address] Yuliya Leyva MD schedule surgery 05/17/2025 Travel 05/15/2025 Orders Only [facility] Scanner 1 scan: (1-Ord) [facility], XR FOOT RT MIN 3V, 05/15/2025 05/04/2025 2:00 PM CDT Office Visit [facility] [address] [place] [address] Yuliya Leyva MD Consult (Left side lump) 05/04/2025 Travel 04/29/2025 Travel 04/20/2025 Travel 04/17/2025 Lab Requisition [facility] [phone] Cartagena MD 04/16/2025 Orders Only [facility] Scanner 1 scan: (1-Ord) [facility], UPPER GI, 04/16/2025 04/15/2025 Orders Only [facility] Scanner 1 scan: (1-Ord) [place], CT CHEST ABODMEN PELV W CON, 04/15/2025 04/15/2025 Nurse Triage [facility] [address] [place] [address] Alfred Pritchett MD Vomiting 04/14/2025 2:40 PM CDT Office Visit [facility] [address] [place] [address] Bonifacio Anthony MD Hospital F/U 04/14/2025 Orders Only [facility] Scanner 1 scan: (1-Ord) [facility], ABDOMEN PELVIS WO CON , 04/14/2025 04/14/2025 Orders Only [facility] Scanner 1 scan: (1-Ord) [place], CHEST W CON, 04/14/2025 04/14/2025 Travel 04/10/2025 Travel 04/09/2025 Telephone [facility] [address] [place] [address] Kim Patel NP Refill Request (dextroamphetamine CONTROLLED RELEASE (Dexedrine) 10 mg capsule ) 03/26/2025 9:15 AM CDT Office Visit [facility] [address] [place] [address] Alfred Pritchett MD Abdominal Pain (Upper left abdominal pain); Results (Go over ultrasound results); Cough (2.5 weeks of coughing - tessalon didn't help/COVID-19 testing negative x3) 03/26/2025 Travel 03/17/2025 Telephone [facility] [address] [place] [address] Alfred Pritchett MD Results (Ultrasound results) 03/16/2025 3:15 PM CDT Ancillary Procedure [facility] [address] [place] [address] 03/15/2025 3:15 PM CDT Office Visit [facility] [address] [facility] [address] Kim Patel NP Follow Up; Medication Management 03/15/2025 Telephone [facility] [address] [facility] [address] Kim Patel, GUS Medication Management (dextroamphetamine ) 03/15/2025 Travel 03/05/2025 12:40 PM CDT Office Visit [facility] [address] [place] [address] Alfred Pritchett MD Lump (Lump left side of rib area, under breast/Pain x 2 days) 03/05/2025 Travel from Last 3 Months Immunizations Immunization Administration Dates Next Due AMB Influenza, IIV3 (Age >=3 years)(Flu Clinic Only) 09/06/2011,09/20/2008 AMB Influenza, IIV4 PF (=>6 mos Flulaval,Fluzone Fluarix)(Flu Clinic Only) 09/06/2016,08/13/2014 COVID-19 vaccine ([employer] NTech 30mcg/0.3mL) 12YO+ BIVALENT PF, MDV 09/19/2022 DTaP 03/19/2006 [id number] (Pediarix) 06/15/2005,04/13/2005,0 02/13/2005 DTaP-IPV (Kinrix) 12/20/2009 HIB [...] Sex Assigned at Female 12/02/2021 8:02 PM PAGE TECHNICIAN Legal Sex Female 7:07 AM PAGE TECHNICIAN Gender Identity Female 12/02/2021 8:02 PM PAGE TECHNICIAN Sexual Orientation Lesbian or Seaman 12/02/2021 8: 02 PM PAGE TECHNICIAN Obstetrics History Para Term AB IAB SAB [...] Care Team (Late st Contact Info) Description 06/08/2025 2:00 PM CDT Office Visit [facility] [address] [place] [address] Yuliya Leyva MD [address] [place] [address] 06/09/2025 3:15 PM CDT Office Visit [facility] [address] [place] [address] Kim Patel NP [address] [place] [address] Health Maintenance Due Date Last Done Comments Well Child Check for age 3-20 07/11/2023 07/11/2022, 10/28/2020, 02/09/2019, Additional history exists COVID-19 vaccine series ( season) 2024 09/19/2022, 07/07/2021, 06/16/2021 Influenza Vaccine (#1) 2025 , 10/28/2020, 10/28/2019, Additional history exists Depression [...] series for age 9-26 Completed 06/27/2017, 12/07 Meningococcal series for age 11-21 Completed 01/02/2021, 06/27/2017, 12/07/2016 HIV for age 15-65 Completed 02/22/2023 Hepatitis C screening for age 18-79 Completed 02/22/2023 Procedures Procedure Name Priority Date/Time Associated Diagnosis Comments LAB TRACKING EVENT Routine 05/20/2025 12 :38 PM CDT PATH TISSUE EXAM Routine 05/20/2025 12:3 8 PM CDT SCAN-OPERATIVE/PROCED URE REPORT 05/20/2025 12:00 AM CDT SCAN-OPERATIVE/PROCED URE REPORT 05/20/2025 12:00 AM CDT SCAN-RADIOLOGY REPORT 05/15/2025 12:00 AM CDT LAB TRACKING EVENT Routine 04/16/2025 10 :38 [...] Health Maintenance Results * LAB TRACKING EVENT (05/20/2025 12:38 PM CDT) Only the most recent of2 resultswithin the time period is included. Other (Other) Client Collect / Unknown 05/20/2025 12:38 PM CDT 05/20/2025 11:37 PM CDT us Yuliya Leyva MD LAB BILL ONLY Final Re sult [facility] [address] [place] [address], * PATH TISSUE EXAM (05/20/2025 12:38 PM CDT) Only the most recent of2 resultswithin the time period is included. Case Report Pathology Report Case: [id number] Authorizing Provider: Yuliya Leyva MD Collected: 05/20/2025 1238 Ordering Location: [facility] Received: 05/24/2025 1408 Pathologist: Dee Acevedo MD Specimen: Lipoma, abdominal wall. 05/27/2025 9:59 AM CDT [facility] Final Diagnosis A) SOFT TISSUE, LEFT ABDOMINAL WALL, RESECTION: Lipoma 05/27/2025 9:59 AM CDT [facility] at 0959 CDT Clinical Information Left abdominal wall mass 05/27/2025 9:59 AM CDT [facility] Gross Description A) Received in formalin, labeled with the patient's name and left abdominal wall mass, is a 5.4 x 4.7 x 2.6 cm aggregate of fragmented adipose tissue. There is a silver surgical wire embedded in the tissue. The specimen is serially sectioned to reveal cut surfaces composed of smooth, yellow adipose and irregular, ragged, pink-whatley membraneous tissue. No discrete foci of hemorrhage or necrosis identified. Flower B[employer] Picker sections are submitted in 5 cassettes. ADK 05/24/2025 05/27/2025 9:59 AM CDT [facility] Microscopic Description The final diagnosis is based on microscopic examination of appropriate sections of all specimens. 05/27/2025 9:59 AM CDT [facility] Additional Information Interpreted at [facility] - [address] [place] [address] 05/27/2025 9:59 AM CDT [facility] Other (Lipoma) 05/20/2025 12 :38 PM CDT 05/24/2025 2:08 PM CDT us Yuliya Leyva MD PATHOLOGY/CYTOLOGY Final Result Performing Organization Address City/State/[facility] Co de Phone Number [facility] [address] [place] [address], [place] * SCAN-OPERATIVE/PROCEDURE REPORT (05/20/2025 12:00 AM CDT) us Scanner OTHER Final Result * SCAN-OPERATIVE/PROCEDURE REPORT (05/20/2025 12:00 AM CDT) us Scanner OTHER Final Result * SCAN-RADIOLOGY REPORT (05/15/2025 12:00 AM CDT) Anatomical Region Laterality Modality Other us Scanner OTHER Final Result * SCAN-ENDOSCOPY (04/16/2025 12:00 AM CDT) us [...] PM (Electronically Signed) us Alfred Pritchett MD Final Resu lt * LC HCV ANTIBODY RFX TO QUANT PCR (02/22/2023 3:37 PM CDT) Pathologist [facility] HCV Ab Non Reactive Non Reactive 02/26/2023 10:06 PM CDT [facility] ([facility]) Blood BLOOD SPECIMEN / Unknown Venipuncture / Unknown 02/22/2023 3:37 PM CDT 02/22/2023 3:39 PM CDT Narrative [facility] ([facility]) - 02/26/2023 10:06 PM CDT Performed at: [address] [place] [id number] Brokerage Clerk: Kwabena France MD, Phone: [phone] Alfred Pritchett MD LABORATORY Final Resu lt Performing Organization Address [facility]/State/[facility] Co de Phone Number [facility] ([facility]) [address] [place] [address], [place] * LC HIV-1/O/2, 4TH GENERATION (02/22/2023 3:37 PM CDT) [facility] HIV Scr 4th Gen Non Reactive Non Reactive 02/26/2023 4:07 AM CDT [facility] ([facility]) Comment: HIV Negative HIV-1/HIV-2 antibodies and HIV-1 p24 antigen were NOT detected. There is no laboratory evidence of HIV infection. Blood BLOOD SPECIMEN / Unknown Venipuncture / Unknown 02/22/2023 3:37 PM CDT 02/22/2023 3:39 PM CDT Narrative [facility] ([facility]) - 02/26/2023 4:07 AM CDT Performed at: [address] [place] [id number] Brokerage Clerk: Kwabena France MD, Phone: [phone] Alfred Pritchett MD LABORATORY Final Resu lt [facility] ([facility]) [address] [place] [address], from Last 3 Months or Most Recently Relevant to Health Maintenance Insurance [facility] NONPROFIT INSURANCE TRUST CCMSI NON-XCEL EMP LOT 20 [id number] [place] [address] Care Teams Census Enumerator Relationship Specialty Start Date End Date Alfred Pritchett MD [address] [place] [address] PCP - General 04/19/06
[2025-05-28 21:31] VITALS: BP 135/75; PULSE 103; RESP 16; TEMP 36.7; O2SAT 98; BMI 43.5
--- OUTSIDE RECORDS SUMMARY | 2025-05-28 22:15 | XMS_ITS | Clinical Summary ---
Author Organization [facility] Address [address] [facility] , [address] [place] [address] Phone Care Team Providers Care Bioinformatics Research Technician Name Role Phone Colette THEODORE, Meramaged Granger [phone] Conditions or Problems Problem Name Problem Code Onset Date Status Entry Date Provider Comment Standard Description Annotate Migraine 74954762 (SNOMED CT) Active Mraquis Mckeon MD Migraine Headache, post traumatic 71140334 (SNOMED CT) Active Marquis Mckeon MD Posttraumatic headache Dizziness 738680105 (SNOMED CT) Active Marquis Mckeon MD Dizziness Medications Medication Instructions Start Date Stop Date Generic Name ND Provider PROPRANOLOL HCL 20 MG TABS 1 tablet by mouth twice a day 3 propranolol [id number] Marquis Mckeon MD RIZATRIPTAN BENZOATE 10 MG TABS TAKE ONE TABLET BY MOUTH AT ONSET OF MIGRAINE AND EVERY 2 HOURS NEEDED. MAX 2 TABLETS IN 24 HOURS 3 rizatriptan [id number] Marquis Mckeon MD MECLIZINE HCL 25 MG TABS 1 tablet by mouth three times a day as directed For dizziness 3 meclizine [id number] Marquis Mckeon MD Medications Administered No information [...] Procedures Code Procedure Name Date Entry Date [facility]-[id number] Documentation of current medicatio ns [facility]-[id number] Documentation of current medicatio ns [facility]-[id number] Documentation of current medicatio ns [id number] Documentation of current medicatio ns [id number] MRI-Brain W/WO [id number] MRA-Neck W/WO [id number] MRA-Head W/O ORDERS Other Referral Vital Signs No information available. Immunizations No information available. Advance Directives No information available.
--- NOTE | 2025-05-28 22:38 | ED.GENADULT ---
HPI - General Adult General Date Seen: 05/28/25 Chief complaint: Post Op Complication Stated complaint: ripped incision open on ribs Time Seen by Provider: 05/28/25 22:08 Source: patient Mode of arrival: ambulatory Limitations: no limitations History of Present Illness HPI narrative: This very nice 19-year-old female presents here thinking that her wound is broken open, on the 20 of May she underwent removal of a lipoma from her left side of her upper abdominal area. By . She notes a little bit more discharge, no pain with this, no fevers no chills. Comes in for an assessment. Treatments prior to arrival: none Related Data Home Medications ?Medication ?Instructions ?Recorded ?Confirmed bupropion HCl 150 mg 24 hr tablet, 150 mg PO QAM 06/21/23 05/20/25 extended release dextroamphetamine sulfate 10 mg 20 mg PO DAILY 06/21/23 05/20/25 capsule,extended release fluoxetine 40 mg capsule 40 mg PO DAILY 06/21/23 05/20/25 hydroxyzine HCl 25 mg tablet 25 mg PO DAILY 06/21/23 05/20/25 rizatriptan 10 mg tablet 10 mg PO BID PRN 04/16/25 05/20/25 sumatriptan succinate 25 mg tablet 25 mg PO Q2H PRN 04/16/25 05/20/25 acetaminophen 500 mg tablet 1,000 mg 05/12/25 meclizine 25 mg tablet 25 mg 05/12/25 meloxicam 15 mg tablet mg PRN 05/12/25 propranolol 20 mg tablet mg 05/12/25 Previous Rx's ?Medication ?Instructions ?Recorded hydrocodone 5 mg-acetaminophen 325 1 tab PO Q4-6H PRN pain #10 tabs 04/10/25 mg tablet ondansetron HCl 4 mg tablet 4 mg PO Q8-12H PRN nausea and 04/14/25 vomiting #7 tabs omeprazole 20 mg capsule,delayed 20 mg PO DAILY #30 caps 04/16/25 release hydrocodone 5 mg-acetaminophen 325 1 tab PO Q6H PRN Pain #7 tabs 05/20/25 mg tablet Allergies Allergy/AdvReac Type Severity Reaction Status Date / Time escitalopram (From Lexapro) Allergy Mild Headache Verified 05/17/25 07:08 adhesive AdvReac Mild Rash Verified 05/17/25 07:08 Review of Systems Status of ROS: Reports: 6 or more systems reviewed and unremarkable except as noted in History and below [facility] Medical History ADHD (attention deficit hyperactivity disorder) ?F90.9 - Attention-deficit hyperactivity disorder, unspecified type (ICD-10) Depression ?F32.A - Depression, unspecified (ICD-10) Adjustment disorder with mixed disturbance of emotions and conduct ?F43.25 - Adjustment disorder with mixed disturbance of emotions and conduct (ICD-10) Hirsutism ?L68.0 - Hirsutism (ICD-10) GERD (gastroesophageal reflux disease) ?K21.9 - Gastro-esophageal reflux disease without esophagitis (ICD-10) Anxiety ?F41.9 - Anxiety disorder, unspecified (ICD-10) Obesity ?E66.9 - Obesity, unspecified (ICD-10) PCOS (polycystic ovarian syndrome) ?E28.2 - Polycystic ovarian syndrome (ICD-10) Kidney stone ?N20.0 - Calculus of kidney (ICD-10) Vomiting ?R11.10 - Vomiting, unspecified (ICD-10) Kidney stone on left side ?N20.0 - Calculus of kidney (ICD-10) Dehydration ?E86.0 - Dehydration (ICD-10) Acute hypokalemia ?E87.6 - Hypokalemia (ICD-10) Chest pain ?R07.9 - Chest pain, unspecified (ICD-10) Kidney stone on left side ?N20.0 - Calculus of kidney (ICD-10) IUD complication ?T83.9XXA - Unspecified complication of genitourinary prosthetic device, implant and graft, initial encounter (ICD-10) Family History Family/Other Heart disease Stroke High blood pressure Diabetes Alcohol dependence Aunt Breast cancer High cholesterol Grandmother Ovarian cancer High blood pressure High cholesterol Mother High cholesterol FH: mental illness Alcohol dependence Drug dependence Father Alcohol dependence Drug dependence Social History What is your current living situation?: I presently have a place to live Problems where you live: no known problems Problems where you live details: n/a In the past 12 months, utilities in danger of being shut off: no In past 12 months, lack of transportation kept you from medical appts, meetings, work, or getting things needed for daily living: no In the past 12 mos, have been you worried that your food would run out before you had money to buy more?: never true In the past 12 mos, the food you bought just didn't last and you didn't have money to buy more?: never true Smoking Status: Never smoker Do you use any of these nicotine containing products: None Second hand tobacco smoke exposure: No How often do you have a drink containing alcohol: never How often do you have six or more drinks on one occasion: Never AUDIT-C Alcohol total score: 0 Non-prescribed substance use: denies use Caffeine: Yes How often does anyone, including family, friends and others, physically hurt you: never How often does anyone, including family, friends and others, insult or talk down to you: never How often does anyone, including family, friends and others, threaten you with harm: never How often does anyone, including family, friends and others, scream or curse at you: never Are you using contraception or practicing any form of control: No service: No Exam Narrative: Exam Narrative: On examination she has a benign abdomen is soft bowel sounds are normal, her left upper quadrant there is approximately a 4 in incision horizontally, that is gaping less than 1 mm, it almost seems like the underlying deep dissolvable sutures. We might have come apart a little bit there is no discharge associated with this. I was able to bring this together in cleaned with Hibiclens, then applied glue, to good affect. She viewed this and was happy. Const: Vital Signs, click to edit/add: Vital Signs - 24 hr 05/28/25 21:31 Temperature 98.1 F Pulse Rate [Pulse Oximeter] 103 H Respiratory Rate 16 Blood Pressure [Ri ght Upper Arm] 135/75 Pulse Oximetry 98 Oxygen Delivery Me thod Room Air Documenting provider has reviewed patient's vital signs: yes Course Course ED Course: I went over the course of this the risks benefits of gluing it which she increase the chance of infection just slightly. May get a little bit better resolved she was very comfortable with this. Vital Signs Vital signs: Initial Vital Signs Temperature 98.1 F 05/28/25 21:31 Temperature Source Temporal Artery Scan 05/28/25 21:31 Pulse Rate 103 H 05/28/25 21:31 Respiratory Rate 16 05/28/25 21:31 Blood Pressure 135/75 05/28/25 21:31 Blood Pressure Mean 95 05/28/25 21:31 Blood Pressure Position Sitting 05/28/25 21:31 Pulse Oximetry 98 05/28/25 21:31 Oxygen Delivery Method Room Air 05/28/25 21:31 Vital Signs Temperature 98.1 F 05/28/25 21:31 Pulse Rate 103 H 05/28/25 21:31 Respiratory Rate 16 05/28/25 21:31 Blood Pressure 135/75 05/28/25 21:31 Pulse Oximetry 98 05/28/25 21:31 Oxygen Delivery Method Room Air 05/28/25 21:31 Temperature 98.1 F 05/28/25 21:31 Pulse Rate 103 H 05/28/25 21:31 Respiratory Rate 16 05/28/25 21:31 Blood Pressure 135/75 05/28/25 21:31 Pulse Oximetry 98 05/28/25 21:31 Oxygen Delivery Method Room Air 05/28/25 21:31 Discharge Plan Discharge Clinical Impression: Laceration, Post-operative state Patient Disposition: Home w/ Parent or Adult Condition: Improved Additional Instructions: Home rest follow-up as needed, increasing redness swelling bleeding, the inside stitches are holding together fine, we just had some glue on the outside. Activity Level: Light activity Prescriptions: No Action dextroamphetamine sulfate 10 mg capsule, extended release 20 mg PO DAILY hydroxyzine HCl 25 mg tablet 25 mg PO DAILY bupropion HCl 150 mg tablet extended release 24 hr 150 mg PO QAM fluoxetine 40 mg capsule 40 mg PO DAILY hydrocodone-acetaminophen 5-325 mg tablet 1 tab PO Q4-6H PRN (Reason: pain) Qty: 10 0RF rizatriptan 10 mg tablet 10 mg PO BID PRN Rx Instructions: Take 10 mg by mouth 2 times daily if needed for Migraine. One tablet at onset of a migraigne. Give at minimum 2hrs apart. Max Dose: 30mg per 24hrs. sumatriptan succinate 25 mg tablet 25 mg PO Q2H PRN Rx Instructions: Take 25 mg at the onset of your migraine, repeat in 2 hours times 1 if headache is not resolved. Give at minimum 2hrs apart. Max Dose: 200mg per 24hrs. omeprazole 20 mg capsule,delayed release(DR/EC) 20 mg PO DAILY Qty: 30 2RF hydrocodone-acetaminophen 5-325 mg Tablet 1 tab PO Q6H PRN (Reason: Pain) Qty: 7 0RF ondansetron HCl 4 mg tablet 4 mg PO Q8-12H PRN (Reason: nausea and vomiting) Qty: 7 0RF meloxicam 15 mg tablet PRN Rx Instructions: Take 1 Tablet (15 mg) by mouth once daily. Take as needed for headache. This is Workers Compensation. acetaminophen 500 mg tablet 1,000 mg Rx Instructions: Take 1,000 mg by mouth every 6 hours if needed for Pain or Headache. Max acetaminophen dose: 4000mg in 24 hrs. meclizine 25 mg tablet 25 mg Rx Instructions: 1 tablet by mouth three times a day as directed For dizziness propranolol 20 mg tablet Rx Instructions: Take 1 Tablet (20 mg) by mouth two times daily. Follow Up/Referrals: Alfred Pritchett MD [Primary Care Provider, Family Practice] Stand Alone Forms: [facility] Info Instructions
== END 2025-05-28 22:42 | disposition home or self-care (01) ==
PROVIDERS: Emergency Provider Family Medicine; PCP Family Medicine
DX: T81.31XA Disruption of external operation (surgical) wound, not elsewhere classified, initial encounter (principal)
CPT/HCPCS: 99283